=== PATIENT | female | born 1965 | race Caucasian/White ===

== ENCOUNTER → 2017-08-29 09:52 | Outpatient (CLI) | payer OTHER, SELFPAY ==
--- NOTE | 2017-08-29 | DI.CT.S_ITS ---
PROCEDURE: CT PEL WO CON INDICATIONS: POST OP EVALUATION TECHNIQUE: After the administration of oral contrast, 5 mm thick sections acquired from the iliac crests to the symphysis. 5 mm coronal and sagittal reformats were then performed. For radiation dose reduction, the following was used: automated exposure control, adjustment of mA and/or kV according to patient size. COMPARISON: None. FINDINGS: Image quality: Excellent. Peritoneum and bowel: Bowel loops demonstrate normal wall thickness and caliber. No free fluid or air. Genitourinary: Bladder wall thickness is normal. Nodes and vessels: No iliac, pelvic, or inguinal adenopathy by size criteria. Iliac vessels demonstrate normal size. Bones: Patient is status post right sacroiliac joint fusion. The joint space appears preserved. There is no ankylosis or bridging callus across the right sacroiliac joint. Left sacroiliac joint is unremarkable. No bony abnormalities. The bilateral hip joint spaces are preserved. Degenerative changes are present at the L5-S1 disc space including intervertebral disc space narrowing, vacuum disc phenomenon, and endplate sclerosis. Miscellaneous: No inguinal hernias. IMPRESSION: 1. Postoperative change. Right sacroiliac joint space is preserved without bridging callus. Dictated by: Farheen Le M.D. on 08/29/2017 at 11:21 Approved by: Farheen Le M.D. on 08/29/2017 at 11:44
== END ==
PROVIDERS: Family Provider Student in an Organized Health Care Education/Training Program; Visit Provider Physician Assistant Medical
DX: Z09 Encounter for follow-up examination after completed treatment for conditions other than malignant neoplasm (principal)
CPT/HCPCS: 72192

== ENCOUNTER 2019-08-13 09:29 | Emergency (ER) | payer OTHER, SELFPAY ==
[2019-08-13 09:58] VITALS: BP 153/86; PULSE 80; RESP 20; TEMP 37.6; O2SAT 97; BMI 29.7
--- NOTE | 2019-08-13 09:58 | DI.RAD.S_ITS ---
PROCEDURE: XR CHEST 1V INDICATIONS: suspected sepsis TECHNIQUE: One view of the chest was acquired. COMPARISON: None. FINDINGS: Surgical changes and devices: None. Lungs and pleura: Lungs are clear. No pleural effusions or pneumothorax. Mediastinum: Mediastinal contours appear normal. Heart size is normal. Bones and chest wall: No suspicious bony lesions. Overlying soft tissues appear unremarkable. IMPRESSION: No acute cardiopulmonary disease process. Dictated by: Malinda Neves MD, PhD on 08/13/2019 at 10:50 Approved by: Malinda Neves MD, PhD on 08/13/2019 at 10:50
[2019-08-13] MEDS: SODIUM CHLORIDE 0.9% 1,000 ML 1000 ML IV ×2 (10:14→11:49)
[2019-08-13] MEDS: ONDANSETRON 4 MG/2 ML INJ IV ×2 (10:14→12:52)
[2019-08-13 10:18] LABS: Add Manual Diff / Slide Review NO; Basophils Absolute Auto 0 /uL (0-100); Basophils Percent Auto 0.1 % (0-2); Eosinophils Absolute Auto 100 /uL (0-450); Eosinophils Percent Auto 0.4 % (2-4); Hematocrit 37.4 % (36-46); Lymphocytes Absolute Auto 500 /uL (1100-4500); Lymphocytes Percent Auto 2.9 % (25-40); Mean Corpuscular HGB Conc 34.9 % (30-36); Mean Corpuscular Hemoglobin 31.5 PG (26-34); Mean Corpuscular Volume 90.3 fL (80-100); Monocytes Absolute Auto 1100 /uL (0-900); Monocytes Percent Auto 6.3 % (3-14); Neutrophils Absolute Auto 16400 /uL (1500-7000); Neutrophils Percent Auto 90.3 % (50-75); Platelet Count 236 X10^3/uL (150-400); Red Blood Cell Count 4.14 X10^6/uL (4.0-5.2); Red Cell Distribution Width 12.8 % (11.6-14.8); White Blood Cell Count 18.1 X10^3/uL (4.5-11.0)
[2019-08-13 10:25] LABS: INR 1.2 (0.9-1.3); Prothrombin Time 13.9 SECONDS (10.1-12.7)
[2019-08-13 10:28] LABS: PTT Partial Thromboplastin Tim 28 SECONDS (26.4-36.2)
[2019-08-13 10:30] LABS: Alanine Aminotransferase 43 IU/L (<35); Albumin 4.2 g/dL (3.5-5.0); Albumin Globulin Ratio 1.3 (1.0-2.8); Alkaline Phosphatase 71 U/L (38-126); Aspartate Aminotransferase 44 IU/L (14-36); BUN Creatinine Ratio 21.9 (6-22); Bilirubin Total 0.5 mg/dL (0.2-1.3); Blood Urea Nitrogen 14 mg/dL (7-17); Calcium 8.9 mg/dL (8.4-10.2); Carbon Dioxide 22 mmol/L (22-32); Chloride 101 mmol/L (98-107); Estimated Glomerular Filt Rate > 60.0 mL/min (>60); Globulin 3.2 g/dL (1.7-4.1); Glucose 117 mg/dL (70-100); HEMOLYSIS 32 (0-50); Lipase 17 U/L (23-300); Potassium 3.5 mmol/L (3.4-5.1); Sodium 133 mmol/L (137-145); Total Protein 7.4 g/dL (6.3-8.2)
[2019-08-13 10:31] LABS: Lactate (Lactic Acid) 0.8 mmol/L (0.7-2.1)
[2019-08-13 11:00] VITALS: BP 132/59; PULSE 76; RESP 14; O2SAT 99
--- NOTE | 2019-08-13 11:02 | ED_ITS ---
HPI - General Adult General Chief complaint: Fever Stated complaint: 3 days fever/chills Time Seen by Provider: 08/13/19 10:03 Source: patient and family Mode of arrival: Family Vehicle Limitations: no limitations History of Present Illness HPI narrative: Otherwise healthy 53-year-old female here for evaluation of rosa isela diaz in symptoms to include body aches, fevers, shortness of breath and nausea and generally not feeling very well. She states the symptoms started approximately 48 hours ago. They are fairly gradual onset. Has taken Tylenol at home which has improved her fever somewhat however she states that when the Tylenol wears off her fevers return. She denies any cough. No recent travel. No known sick contacts. Denies any abdominal pain. No urinary symptoms. No headache. No neck pain. No rashes. No vaginal bleeding. No diarrhea. She was recently treated with antibiotics for urinary tract infection but she feels like those symptoms have resolved. Related Data Home Medications Medication Instructions Recorded Confirmed LEVOTHYROXINE SODIUM 100 mcg PO QDAY #0 tab 12/15/12 carisoprodol 350 mg PO QID #0 tab 12/15/12 hydrocodone-acetaminophen [Rifton] 1 tab PO PRN PRN #0 12/15/12 [ESTROGEN CREAM] #0 11/21/15 Previous Rx's Medication Instructions Recorded amoxicillin-pot clavulanate 875 mg PO BID #13 tab 11/22/15 [Augmentin] tramadol 50 mg PO Q6HP PRN #20 tab 11/22/15 ondansetron 4 mg PO Q6H PRN #10 tab 08/13/19 Allergies Allergy/AdvReac Type Severity Reaction Status Date / Time erythromycin base AdvReac Unknown Verified 08/13/19 10:13 [ERYTHROMYCIN BASE] Review of Systems Constitutional Constitutional: Reports body ache(s), Reports fever(s) and Reports malaise Eyes Eyes: Denies change in vision ENT Ears, Nose, Mouth, and Throat: Denies sinus pressure, Denies sore throat and Den ies throat swelling Cardiovascular Cardiovascular: Denies chest pain and Denies dyspnea Respiratory Respiratory: Denies dyspnea Gastrointestinal Gastrointestinal: Denies abdominal pain, Denies diarrhea and Reports nausea Genitourinary Genitourinary: Denies dysuria Genitourinary: Denies dysuria Musculoskeletal Musculoskeletal: Denies abnormal gait, Denies back pain and Reports myalgias Integumentary/Breasts Skin/Breast: Denies lesions and Denies rash Neurologic Neurologic: Denies abnormal gait and Denies behavioral changes Psychiatric Psychiatric: Denies behavioral changes Hematologic/Lymphatic Hematologic/Lymphatic: Denies easy bleeding and Denies easy bruising Allergic/Immunologic Allergic/Immunologic: Denies urticaria and Denies throat swelling Patient History Medical History Bitten by raccoon, initial encounter (Inactive) Hematoma of arm (Inactive) History of stroke (Inactive) Osteoarthritis of lumbar spine (Inactive) Radial head fracture, closed (Inactive) Social History Smoking Status: Never smoker Smoking Status: Never smoker alcohol intake frequency: 0-2 drinks per day Substance Use Type: does not use Exam Initial Vital Signs Initial Vital Signs: Vital Signs Temperature 99.7 F H 08/13/19 09:58 Pulse Rate 80 08/13/19 09:58 Respiratory Rate 20 08/13/19 09:58 Blood Pressure 153/86 H 08/13/19 09:58 Pulse Oximetry 97 08/13/19 09:58 Const General: cooperative, well developed and well groomed Limitations: mental status not altered HENMT Head: normal to inspection and normocephalic Ears: hearing grossly normal bilaterally Nose: external nose normal Neck Neck: no meningeal signs Resp Effort & Inspection: normal respiratory effort Auscultation: clear to auscultation bilaterally Cardio Rate: regular rate Rhythm: regular rhythm GI Inspection: non-distended Palpation: soft and No firm Back/Spine/Pelvis Back: No CVA tenderness Skin Lesions: no lesions Rashes: no rashes Neuro General: patient alert, patient awake and patient oriented x3 Cognition: normal cognition Speech: speech normal Extrem General: normal to inspection and capillary refill normal Psych Appearance: grossly normal and well kempt Scores GCS [place] coma scale eye opening: Spontaneous Adolfo coma scale verbal response: Orientated [place] coma scale motor response: Obey commands Adolfo coma scale total score: 15 Course Orders Ordered: ED Orders 08/13/19 10:27 Blood Culture Stat 08/13/19 11:11 Urine Microscopic Stat 08/13/19 11:53 Influenza A & B (PCR) Stat Discontinued Medications Sodium Chloride (Normal Saline 0.9%) 1,000 mls @ 1,000 mls/hr IV BOLUS ONE Stop: 08/13/19 10:54 Last Infusion: 08/13/19 11:30 Dose: 0 mls/hr Documented by: Admin: 08/13/19 10:14 Dose: 1,000 mls/hr Documented by: LEONILA Sodium Chloride (Normal Saline 0.9%) 1,000 mls @ 1,000 mls/hr IV BOLUS ONE Stop: 08/13/19 12:19 Last Infusion: 08/13/19 12:58 Dose: 0 mls/hr Documented by: Admin: 08/13/19 11:49 Dose: 1,000 mls/hr Documented by: GARRISON Ketorolac Tromethamine (Toradol) 30 mg IV NOW ONE Stop: 08/13/19 12:49 Last Admin: 08/13/19 12:52 Dose: 30 mg Documented by: GARRISON Ondansetron HCl (Zofran) 4 mg IV NOW ONE Stop: 08/13/19 10:05 Last Admin: 08/13/19 10:14 Dose: 4 mg Documented by: LEONILA Ondansetron HCl (Zofran) 4 mg IV NOW ONE Stop: 08/13/19 12:49 Last Admin: 08/13/19 12:52 Dose: 4 mg Documented by: GARRISON Vital Signs Vital signs: Vital Signs - 8 hr 08/13/19 11:30 08/13/19 12:46 Temperature 99.4 F Pulse Rate 80 82 Respiratory Rate 20 15 Blood Pressure [Right Arm] 142/65 H 140/66 Pulse Oximetry 100 99 Medical Decision Making Medical Records Medical records reviewed: Yes I reviewed the patient's medical records. Lab Data Lab results reviewed: Yes I reviewed the patient's lab results. Result diagrams: 08/13/19 10:00 08/13/19 10:00 Labs: Lab Results 08/13/19 08/13/19 08/13/19 Range/Units 10:00 10:00 10:00 WBC 18.1 H (4.5-11.0) X10^3/uL RBC 4.14 (4.0-5.2) X10^6/uL Hgb 13.0 (12.0-16.0) g/dL Hct 37.4 (36-46) % MCV 90.3 (80-100) fL MCH 31.5 (26-34) PG MCHC 34.9 (30-36) % RDW 12.8 (11.6-14.8) % Plt Count 236 (150-400) X10^3/uL Neut % (Auto) 90.3 H (50-75) % Lymph % (Auto) 2.9 L (25-40) % Ada % (Auto) 6.3 (3-14) % Eos % (Auto) 0.4 L (2-4) % Baso % (Auto) 0.1 (0-2) % Neut # (Auto) 14014 H (7888-3783) /uL Lymph # (Auto) 500 L (8050-4060) /uL Ada # (Auto) 1100 H (0-900) /uL Eos # (Auto) 100 (0-450) /uL Baso # (Auto) 0 (0-100) /uL PT 13.9 H (10.1-12.7) SECONDS INR 1.2 (0.9-1.3) APTT 28 (26.4-36.2) SECONDS Sodium (137-145) mmol/L Potassium (3.4-5.1) mmol/L Chloride (98-107) mmol/L Carbon Dioxide (22-32) mmol/L BUN (7-17) mg/dL Creatinine (0.52-1.04) mg/dL Estimated GFR (>60) mL/min BUN/Creatinine Ratio (6-22) Glucose (70-100) mg/dL Lactate (0.7-2.1) mmol/L Calcium (8.4-10.2) mg/dL Total Bilirubin (0.2-1.3) mg/dL AST (14-36) IU/L ALT (<35) IU/L Alkaline Phosphatase (38-126) U/L Total Protein (6.3-8.2) g/dL Albumin (3.5-5.0) g/dL Globulin (1.7-4.1) g/dL Albumin/Globulin Ratio (1.0-2.8) Lipase (23-300) U/L Procalcitonin 0.30 (<0.5) ng/mL Urine RBC (0-5/HPF) Urine WBC (0-5/HPF) Ur Squamous Epith Cells (0-5/HPF) Urine Bacteria (None) Ur Culture Indicated? Influenza A (RT-PCR) (NEGATIVE) Influenza B (RT-PCR) (NEGATIVE) 08/13/19 08/13/19 08/13/19 Range/Units 10:00 10:00 11:11 WBC (4.5-11.0) X10^3/uL RBC (4.0-5.2) X10^6/uL Hgb (12.0-16.0) g/dL Hct (36-46) % MCV (80-100) fL MCH (26-34) PG MCHC (30-36) % RDW (11.6-14.8) % Plt Count (150-400) X10^3/uL Neut % (Auto) (50-75) % Lymph % (Auto) (25-40) % Ada % (Auto) (3-14) % Eos % (Auto) (2-4) % Baso % (Auto) (0-2) % Neut # (Auto) (0957-5327) /uL Lymph # (Auto) (8846-3159) /uL Ada # (Auto) (0-900) /uL Eos # (Auto) (0-450) /uL Baso # (Auto) (0-100) /uL PT (10.1-12.7) SECONDS INR (0.9-1.3) APTT (26.4-36.2) SECONDS Sodium 133 L (137-145) mmol/L Potassium 3.5 (3.4-5.1) mmol/L Chloride 101 (98-107) mmol/L Carbon Dioxide 22 (22-32) mmol/L BUN 14 (7-17) mg/dL Creatinine 0.64 (0.52-1.04) mg/dL Estimated GFR > 60.0 (>60) mL/min BUN/Creatinine Ratio 21.9 (6-22) Glucose 117 H (70-100) mg/dL Lactate 0.8 (0.7-2.1) mmol/L Calcium 8.9 (8.4-10.2) mg/dL Total Bilirubin 0.5 (0.2-1.3) mg/dL AST 44 H (14-36) IU/L ALT 43 H (<35) IU/L Alkaline Phosphatase 71 (38-126) U/L Total Protein 7.4 (6.3-8.2) g/dL Albumin 4.2 (3.5-5.0) g/dL Globulin 3.2 (1.7-4.1) g/dL Albumin/Globulin Ratio 1.3 (1.0-2.8) Lipase 17 L (23-300) U/L Procalcitonin (<0.5) ng/mL Urine RBC 1-5/hpf (0-5/HPF) Urine WBC 0-1/hpf (0-5/HPF) Ur Squamous Epith Cells 10-30 /hpf H (0-5/HPF) Urine Bacteria None seen (None) Ur Culture Indicated? Cult not indicated Influenza A (RT-PCR) (NEGATIVE) Influenza B (RT-PCR) (NEGATIVE) 08/13/19 Range/Units 11:53 WBC (4.5-11.0) X10^3/uL RBC (4.0-5.2) X10^6/uL Hgb (12.0-16.0) g/dL Hct (36-46) % MCV (80-100) fL MCH (26-34) PG MCHC (30-36) % RDW (11.6-14.8) % Plt Count (150-400) X10^3/uL Neut % (Auto) (50-75) % Lymph % (Auto) (25-40) % Ada % (Auto) (3-14) % Eos % (Auto) (2-4) % Baso % (Auto) (0-2) % Neut # (Auto) (5792-2419) /uL Lymph # (Auto) (8872-4630) /uL Ada # (Auto) (0-900) /uL Eos # (Auto) (0-450) /uL Baso # (Auto) (0-100) /uL PT (10.1-12.7) SECONDS INR (0.9-1.3) APTT (26.4-36.2) SECONDS Sodium (137-145) mmol/L Potassium (3.4-5.1) mmol/L Chloride (98-107) mmol/L Carbon Dioxide (22-32) mmol/L BUN (7-17) mg/dL Creatinine (0.52-1.04) mg/dL Estimated GFR (>60) mL/min BUN/Creatinine Ratio (6-22) Glucose (70-100) mg/dL Lactate (0.7-2.1) mmol/L Calcium (8.4-10.2) mg/dL Total Bilirubin (0.2-1.3) mg/dL AST (14-36) IU/L ALT (<35) IU/L Alkaline Phosphatase (38-126) U/L Total Protein (6.3-8.2) g/dL Albumin (3.5-5.0) g/dL Globulin (1.7-4.1) g/dL Albumin/Globulin Ratio (1.0-2.8) Lipase (23-300) U/L Procalcitonin (<0.5) ng/mL Urine RBC (0-5/HPF) Urine WBC (0-5/HPF) Ur Squamous Epith Cells (0-5/HPF) Urine Bacteria (None) Ur Culture Indicated? Influenza A (RT-PCR) Flu a negative (NEGATIVE) Influenza B (RT-PCR) Flu b negative (NEGATIVE) Point of Care Testing Test Results Negative Urine Dip Bedside Urine Glucose Negative Bedside Urine Bilirubin ++ 2 Bedside Urine Ketone +++ 80 Urine Specific Mallory 1.025 Bedside Urine Occult Blood +/- Bedside Urine pH 6.0 Bedside Urine Protein + 30 Bedside Urine Urobilinogen +/- 1mg Bedside Urine Nitrite - Negative Bedside Urine Leukocytes - Negative Esterase Point of care testing: Point of Care Testing Test Results Negative Urine Dip Bedside Urine Glucose Negative Bedside Urine Bilirubin ++ 2 Bedside Urine Ketone +++ 80 Urine Specific Mallory 1.025 Bedside Urine Occult Blood +/- Bedside Urine pH 6.0 Bedside Urine Protein + 30 Bedside Urine Urobilinogen +/- 1mg Bedside Urine Nitrite - Negative Bedside Urine Leukocytes - Negative Esterase Imaging Data Chest x-ray: Radiologist's Impression: [address] [address] XRay Report Signed Patient: May Martinez [facility]#: [id number] : 1965Acct:[id number] Age/Sex: 53 / FDate of Service: 08/13/19 Loc: ED Accession Number: [id number] Procedure: XR chest 1V Ordering Provider: Lanker,Chucky D.O. PROCEDURE: XR CHEST 1V INDICATIONS: suspected sepsis TECHNIQUE: One view of the chest was acquired. COMPARISON: None. FINDINGS: Surgical changes and devices: None. Lungs and pleura: Lungs are clear. No pleural effusions or pneumothorax. Mediastinum: Mediastinal contours appear normal. Heart size is normal. Bones and chest wall: No suspicious bony lesions. Overlying soft tissues appear unremarkable. IMPRESSION: No acute cardiopulmonary disease process. Dictated by: Malinda Neves MD, PhD on 08/13/2019 at 10:50 Approved by: Malinda Neves MD, PhD on 08/13/2019 at 10:50 ECG Data Attestation: I personally reviewed and interpreted this ECG as follows: Prior ECG tracings: not available for review Interpretation: Sinus rhythm Ventricular rate is 76 Normal axis Normal QRS Normal QTC No ST T wave changes MDM Narrative Medical decision making narrative: Unknown source of the patient's fever. Does not appear to be a pneumonia. Does not appear to be urinary tract infection. She has no skin changes concerning for skin infection. She has no abdominal tenderness concerning for an intra-abdominal surgical issue. Her physical exam is not consistent with meningitis. Her flu is negative. We did test her for COVID-19. We did inform her this would take a couple days to result. I have no indication for antibiotics. We did discuss the use of Tylenol and ibuprofen. Will send home with nausea medications. Informed her that if any symptoms worsen to include worsening abdominal pain she should return to the emergency department. I do not feel that we should do a CT scan of her abdomen today however if she returns with worsening abdominal pain this potentially could be warranted. She expressed understanding and agreement with these discharge instructions. Discharge Plan Departure Patient Disposition: Home Clinical Impression: Nausea Fever Qualifiers: Fever type: unspecified Qualified Code(s): R50.9 - Fever, unspecified Discharge Date/Time: 08/13/19 13:46 Instructions: DI for Fever (Symptom) -- Adult Activity Restrictions/Additional Instructions: Use the nausea medication as needed. Recommend that you drink small amounts of fluid over longer periods of time. Tylenol and/or ibuprofen for any fevers or body aches. You were tested for COVID-19. This takes anywhere from 2-5 days to result. Contact your primary provider for follow-up. Prescriptions: New ondansetron 4 mg tablet,disintegrating 4 mg PO Q6H PRN (Reason: nausea and vomiting) Qty: 10 RF: 0 No Action carisoprodol 350 MG tablet 350 mg PO QID Qty: 0 RF: 0 hydrocodone-acetaminophen [Rifton] 7.5 MG/325 MG tablet 1 tab PO PRN PRNQty: 0 RF: 0 LEVOTHYROXINE SODIUM 100 mcg PO QDAY Qty: 0 RF: 0 [ESTROGEN CREAM] Qty: 0 RF: 0 tramadol 50 MG tablet 50 mg PO Q6HP PRNQty: 20 RF: 0 amoxicillin-pot clavulanate [Augmentin] 875 MG/125 MG tablet 875 mg PO BID Qty: 13 RF: 0 Stand Alone Forms: Work Release Note
[2019-08-13 11:12] LABS: Bacteria Urine None Seen
[2019-08-13 11:18] LABS: RBC Urine 1-5/HPF (0-5/HPF); Squamous Epithelial Cell Urine 10-30 /HPF (0-5/HPF); WBC Urine 0-1/HPF (0-5/HPF)
[2019-08-13 11:19] LABS: Culture Indicated Urine Cult Not Indicated
[2019-08-13 11:30] VITALS: BP 142/65; PULSE 80; RESP 20; O2SAT 100
[2019-08-13 12:46] VITALS: BP 140/66; PULSE 82; RESP 15; TEMP 37.4; O2SAT 99
[2019-08-13] MEDS: KETOROLAC 60 MG/2 ML VIAL 30 MG IV (12:52)
[2019-08-13 13:06] LABS: Influenza A - CEPHEID Flu A NEGATIVE (NEGATIVE); Influenza B - CEPHEID Flu B NEGATIVE (NEGATIVE)
[2019-08-13 23:34] LABS: COVID19 Sendout Not Detected (Not Detect)
== END 2019-08-13 13:46 | disposition home or self-care (01) ==
PROVIDERS: Emergency Provider Emergency Medicine; Family Provider Student in an Organized Health Care Education/Training Program
DX: Z03.818 Encounter for observation for suspected exposure to other biological agents ruled out (principal); R11.0 Nausea; R50.9 Fever, unspecified; R06.02 Shortness of breath
CPT/HCPCS: 36415; 71045; 80053; 81003; 81015; 81025; 83605; 83690; 84145; 85025; 85610; 85730; 87040; 87502; 87635; 93005; 96361; 96374; 96375; 96376; 99284; J1885; J2405

== ENCOUNTER 2019-08-15 13:32 | Emergency (ER) | payer OTHER, SELFPAY ==
[2019-08-15 13:41] VITALS: BP 152/74; PULSE 97; RESP 18; TEMP 36.7; O2SAT 98; BMI 26.5
[2019-08-15 14:27] LABS: Add Manual Diff / Slide Review NO; Basophils Absolute Auto 100 /uL (0-100); Basophils Percent Auto 0.4 % (0-2); Eosinophils Absolute Auto 0 /uL (0-450); Hematocrit 41.7 % (36-46); Hemoglobin 14.5 g/dL (12.0-16.0); Lymphocytes Absolute Auto 1700 /uL (1100-4500); Lymphocytes Percent Auto 11.6 % (25-40); Mean Corpuscular HGB Conc 34.7 % (30-36); Mean Corpuscular Hemoglobin 31.3 PG (26-34); Mean Corpuscular Volume 90.2 fL (80-100); Monocytes Absolute Auto 1900 /uL (0-900); Monocytes Percent Auto 12.6 % (3-14); Neutrophils Absolute Auto 11100 /uL (1500-7000); Neutrophils Percent Auto 75.4 % (50-75); Platelet Count 350 X10^3/uL (150-400); Red Blood Cell Count 4.62 X10^6/uL (4.0-5.2); Red Cell Distribution Width 12.9 % (11.6-14.8); White Blood Cell Count 14.7 X10^3/uL (4.5-11.0)
--- NOTE | 2019-08-15 14:29 | DI.RAD.S_ITS ---
PROCEDURE: XR ACUTE ABDOMEN SERIES INDICATIONS: abd pain, vomiting TECHNIQUE: One view chest and two views of the abdomen were acquired. COMPARISON: [facility], CT, CT ABDOMEN PELVIS W CON, 08/15/2019, 15:02. FINDINGS: Surgical changes and devices: None. Chest: Lungs are clear. Heart size is normal. No pleural effusions. No pneumoperitoneum. Abdomen: No air-filled distended small bowel loops are identified demonstrating air-fluid levels. No suspicious calcifications. Visualized solid organ contours appear normal. Bones: No suspicious bony lesions. Postoperative changes of the right sacroiliac joint are present. IMPRESSION: 1. No evidence of a bowel obstruction. 2. No acute cardiopulmonary process is evident. Dictated by: Alphonse Montano M.D. on 08/15/2019 at 14:57 Approved by: Alphonse Montano M.D. on 08/15/2019 at 14:58
[2019-08-15 14:34] LABS: INR 1.1 (0.9-1.3); Prothrombin Time 12.5 SECONDS (10.1-12.7)
[2019-08-15 14:37] LABS: PTT Partial Thromboplastin Tim 30 SECONDS (26.4-36.2)
[2019-08-15 14:39] LABS: Alanine Aminotransferase 31 IU/L (<35); Albumin 4.6 g/dL (3.5-5.0); Albumin Globulin Ratio 1.2 (1.0-2.8); Alkaline Phosphatase 87 U/L (38-126); Aspartate Aminotransferase 32 IU/L (14-36); BUN Creatinine Ratio 21.5 (6-22); Bilirubin Total 0.4 mg/dL (0.2-1.3); Blood Urea Nitrogen 14 mg/dL (7-17); Calcium 9.9 mg/dL (8.4-10.2); Carbon Dioxide 29 mmol/L (22-32); Chloride 97 mmol/L (98-107); Estimated Glomerular Filt Rate > 60.0 mL/min (>60); Globulin 3.8 g/dL (1.7-4.1); Glucose 109 mg/dL (70-100); HEMOLYSIS < 15 (0-50); Lipase 56 U/L (23-300); Potassium 3.3 mmol/L (3.4-5.1); Sodium 136 mmol/L (137-145); Total Protein 8.4 g/dL (6.3-8.2)
[2019-08-15] MEDS: SODIUM CHLORIDE 0.9% 1,000 ML 1000 ML IV ×2 (14:47→15:56)
[2019-08-15] MEDS: ONDANSETRON 4 MG/2 ML INJ IV (14:47)
--- NOTE | 2019-08-15 14:54 | DI.CT.S_ITS ---
PROCEDURE: CT ABDOMEN PELVIS W CON INDICATIONS: abd pain, vomiting with fever TECHNIQUE: After the administration of intravenous contrast, 5 mm thick sections acquired from the diaphragm to the symphysis. 5 mm coronal and sagittal reformats were acquired. For radiation dose reduction, the following was used: automated exposure control, adjustment of mA and/or kV according to patient size. COMPARISON: None. FINDINGS: Image quality: Excellent. ABDOMEN: Lung bases: Lung bases are clear. Heart size is normal. Solid organs: Liver is normal in size and enhancement. Gallbladder is unremarkable. Biliary system is non dilated. Pancreas enhances normally. Spleen is normal in size and enhancement. No adrenal nodules. Kidneys demonstrate normal size and enhancement, without hydronephrosis. Peritoneum and bowel: Diffuse thickening of the bowel wall of the ascending colon and proximal transverse colon with thumbprinting. Consider infectious versus inflammatory versus ischemic etiologies. The bowel is otherwise unremarkable. No free air, free fluid, or abscess cavity. Nodes and vessels: No retroperitoneal or mesenteric adenopathy by size criteria. Aorta and inferior vena cava are normal in size. Miscellaneous: No ventral hernias. PELVIS: Genitourinary: Bladder wall thickness is normal. Miscellaneous: No inguinal hernias or adenopathy. Remote hysterectomy. Bones: No suspicious bony lesions. No vertebral body compression fractures. Right SI joint fusion hardware. IMPRESSION: 1. Diffuse thickening of the bowel wall of the ascending colon and proximal transverse colon with thumbprinting. Consider infectious versus inflammatory versus ischemic etiologies. Dictated by: Melquiades Bhakta M.D. on 08/15/2019 at 15:53 Approved by: Melquiades Bhakta M.D. on 08/15/2019 at 15:59
[2019-08-15] MEDS: METOCLOPRAMIDE 10 MG/2 ML INJ IV (15:05)
[2019-08-15] MEDS: MORPHINE 2 MG/ML INJ IV ×2 (15:05→17:15)
[2019-08-15 15:06] VITALS: BP 192/93; PULSE 80; RESP 21; O2SAT 98
[2019-08-15 15:50] LABS: Bacteria Urine None Seen; WBC Urine None Seen (0-5/HPF)
--- NOTE | 2019-08-15 15:51 | ED.NAVMDI ---
HPI - Nausea/Vomiting/Diarrhea <Dimple Aguirre, [employer]-BC - Last Filed: 08/15/19 21:11> General Chief complaint: Nausea/Vomiting/Diarrhea Stated complaint: fever,vomiting all week Time Seen by Provider: 08/15/19 14:12 Source: patient and family Mode of arrival: Family Vehicle Limitations: no limitations History of Present Illness HPI Narrative: The patient is a 53-year-old female with history of hysterectomy nonsmoker presents with her for chief complaint of fever with vomiting all week. She states she started feeling ill on Sunday up to 104.5, stomach cramping. She came to this facility to be evaluated on Sunday, tested negative for flu and coronavirus. She had a normal chest x-ray at that point time. She comes back today because she has difficulty keeping down anything including fluids. She states she is still having extreme stomach cramping and pain. She denies any dysuria urgency or frequency but notes that she was treated for an antibiotic with Bactrim a few weeks ago. She states she has already had her appendix out. She had an episode of diarrhea last night, and keeps feeling like she has to have diarrhea, but nothing comes out. She denies any focal tenderness to her stomach, states that the whole thing is cramping. She denies any cough or congestion at this point time. Denies any shortness of breath. Related Data Home Medications Medication Instructions Recorded Confirmed LEVOTHYROXINE SODIUM 100 mcg PO QDAY #0 tab 12/15/12 carisoprodol 350 mg PO QID #0 tab 12/15/12 hydrocodone-acetaminophen [Melcher [place]] 1 tab PO PRN PRN #0 12/15/12 [ESTROGEN CREAM] #0 11/21/15 Previous Rx's Medication Instructions Recorded amoxicillin-pot clavulanate 875 mg PO BID #13 tab 11/22/15 [Augmentin] tramadol 50 mg PO Q6HP PRN #20 tab 11/22/15 ondansetron 4 mg PO Q6H PRN #10 tab 08/13/19 ciprofloxacin HCl 500 mg PO BID #14 tab 08/15/19 hydrocodone-acetaminophen [Melcher [place]] 1 tab PO Q4-6H PRN #10 tab 08/15/19 metoclopramide HCl 10 mg PO Q6H PRN #20 tab 08/15/19 metronidazole 500 mg PO TID 7 Days #21 tab 08/15/19 prednisone 40 mg PO DAILY 3 Days #6 tab 08/15/19 Allergies Allergy/AdvReac Type Severity Reaction Status Date / Time erythromycin base AdvReac Unknown Verified 08/15/19 13:46 [ERYTHROMYCIN BASE] Review of Systems <EJ Booker - Last Filed: 08/15/19 21:11> Review of Systems Narrative: GENERAL: See HPI HEENT: Denies sinus pain, ear pain, sore throat, difficulty swallowing, dizziness. RESPIRATORY: Denies dyspnea, cough, wheezing, hemoptysis, sputum. CARDIOVASCULAR: Denies chest pain, palpitations, orthopnea, edema, GASTROINTESTINAL: See HPI : Denies dysuria, frequency, incontinence, hematuria, urinary retention. MUSCULOSKELETAL: denies weakness, joint pain, or bony pain SKIN: Denies rash, skin lesions, or other NEUROLOGIC: Denies weakness, headache, numbness, change in speech, confusion, seizures, incoordination. PSYCHIATRIC: No concerning psychosocial issues. 12 point review of systems is negative except for those stated above Patient History <EJ Booker - Last Filed: 08/15/19 21:11> Medical History Bitten by angi, initial encounter (Inactive) Hematoma of arm (Inactive) History of stroke (Inactive) Osteoarthritis of lumbar spine (Inactive) Radial head fracture, closed (Inactive) Social History Smoking Status: Never smoker Smoking Status: Never smoker alcohol intake frequency: 0-2 drinks per day Substance Use Type: does not use Exam <EJ Booker - Last Filed: 08/15/19 21:11> Narrative Exam Narrative: GENERAL: This is a well-nourished, well-developed patient, appears fatigued and uncomfortable HEAD: Atraumatic. Normocephalic. No temporal or scalp tenderness. EYES: Pupils equal round and reactive. Extraocular motions intact. No scleral icterus. No injection or drainage. ENT: Nose without bleeding, purulent drainage or septal hematoma. Throat without erythema, tonsillar hypertrophy or exudate. Uvula midline. Airway patent. Dry mucous membranes noted NECK: Trachea midline. No JVD or lymphadenopathy. Supple, nontender, no meningeal signs. CARDIOVASCULAR: Regular rate and rhythm RESPIRATORY: Clear to auscultation. Breath sounds equal bilaterally. No wheezes, rales, or rhonchi. GASTROINTESTINAL: Abdomen soft, diffusely tender, active bowel sounds all 4 quadrants. No hepato-splenomegaly, or palpable masses. No guarding. EXTREMITIES: No clubbing, cyanosis, or edema. No joint tenderness, effusion, or edema noted. BACK: Nontender without deformity or crepitance. No flank tenderness. NEURO: AOx3. SKIN: No rash or erythema on visible skin Initial Vital Signs Initial Vital Signs: Vital Signs Temperature 98.0 F 08/15/19 13:41 Pulse Rate 97 H 08/15/19 13:41 Respiratory Rate 18 08/15/19 13:41 Blood Pressure 152/74 H 08/15/19 13:41 Pulse Oximetry 98 08/15/19 13:41 <Stevan Bajwa MD - Last Filed: 08/16/19 07:18> Initial Vital Signs Initial Vital Signs: Vital Signs Temperature 98.0 F 08/15/19 13:41 Pulse Rate 97 H 08/15/19 13:41 Respiratory Rate 18 08/15/19 13:41 Blood Pressure 152/74 H 08/15/19 13:41 Pulse Oximetry 98 08/15/19 13:41 Scores <EJ Booker - Last Filed: 08/15/19 21:11> GCS [place] coma scale eye opening: Spontaneous [place] coma scale verbal response: Orientated [place] coma scale motor response: Obey commands [place] coma scale total score: 15 Course <EJ Booker - Last Filed: 08/15/19 21:11> Orders Ordered: Discontinued Medications Hydrocodone Bitart/Acetaminophen (Vicodin 5/325 Prepack) 1 bottle MISC SEEINSTR ONE Stop: 08/15/19 18:38 Last Admin: 08/15/19 19:21 Dose: Not Given Documented by: JAYRO Ciprofloxacin (Cipro) 500 mg PO NOW ONE Stop: 08/15/19 17:32 Last Admin: 08/15/19 18:04 Dose: 500 mg Documented by: TONY Sodium Chloride (Normal Saline 0.9%) 1,000 mls @ 1,000 mls/hr IV BOLUS ONE Stop: 08/15/19 15:27 Last Infusion: 08/15/19 15:55 Dose: 0 mls/hr Documented by: Admin: 08/15/19 14:47 Dose: 1,000 mls/hr Documented by: MIRANDA Sodium Chloride (Normal Saline 0.9%) 1,000 mls @ 1,000 mls/hr IV BOLUS ONE Stop: 08/15/19 16:47 Last Infusion: 08/15/19 17:13 Dose: 0 mls/hr Documented by: Admin: 08/15/19 15:56 Dose: 1,000 mls/hr Documented by: CARLYN Methylprednisolone (Solu-Medrol 125 Mg Vial) 125 mg IV NOW ONE Stop: 08/15/19 16:43 Last Admin: 08/15/19 17:06 Dose: 125 mg Documented by: TONY Metoclopramide HCl (Reglan) 10 mg IV NOW ONE Stop: 08/15/19 15:01 Last Admin: 08/15/19 15:05 Dose: 10 mg Documented by: CARLYN Metronidazole (Metronidazole) 500 mg PO NOW ONE Stop: 08/15/19 17:32 Last Admin: 08/15/19 18:04 Dose: 500 mg Documented by: TONY Morphine Sulfate (Morphine) 2 mg IV NOW ONE Stop: 08/15/19 15:01 Last Admin: 08/15/19 15:05 Dose: 2 mg Documented by: CARLYN Morphine Sulfate (Morphine) 2 mg IV NOW ONE Stop: 08/15/19 17:13 Last Admin: 08/15/19 17:15 Dose: 2 mg Documented by: CARLYN Ondansetron HCl (Zofran) 4 mg IV NOW ONE Stop: 08/15/19 14:29 Last Admin: 08/15/19 14:47 Dose: 4 mg Documented by: MIRANDA Potassium Chloride (Klor-Con M20) 40 meq PO NOW ONE Stop: 08/15/19 18:45 Last Admin: 08/15/19 19:28 Dose: 40 meq Documented by: JAYRO Vital Signs Vital signs: Vital Signs - 8 hr 08/15/19 13:41 08/15/19 15:06 08/15/19 16:15 Temperature 98.0 F Pulse Rate 97 H 80 72 Respiratory Rate 18 21 17 Blood Pressure 152/74 H Blood Pressure [Right Arm] 192/93 H 174/82 H Pulse Oximetry 98 98 99 08/15/19 18:45 Temperature Pulse Rate 75 Respiratory Rate 18 Blood Pressure Blood Pressure [Right Arm] 188/88 H Pulse Oximetry 99 <Stevan Bajwa MD - Last Filed: 08/16/19 07:18> Orders Ordered: Discontinued Medications Hydrocodone Bitart/Acetaminophen (Vicodin 5/325 Prepack) 1 bottle MISC SEEINSTR ONE Stop: 08/15/19 18:38 Last Admin: 08/15/19 19:21 Dose: Not Given Documented by: JAYRO Ciprofloxacin (Cipro) 500 mg PO NOW ONE Stop: 08/15/19 17:32 Last Admin: 08/15/19 18:04 Dose: 500 mg Documented by: TONY Sodium Chloride (Normal Saline 0.9%) 1,000 mls @ 1,000 mls/hr IV BOLUS ONE Stop: 08/15/19 15:27 Last Infusion: 08/15/19 15:55 Dose: 0 mls/hr Documented by: Admin: 08/15/19 14:47 Dose: 1,000 mls/hr Documented by: MIRANDA Sodium Chloride (Normal Saline 0.9%) 1,000 mls @ 1,000 mls/hr IV BOLUS ONE Stop: 08/15/19 16:47 Last Infusion: 08/15/19 17:13 Dose: 0 mls/hr Documented by: Admin: 08/15/19 15:56 Dose: 1,000 mls/hr Documented by: CARLYN Methylprednisolone (Solu-Medrol 125 Mg Vial) 125 mg IV NOW ONE Stop: 08/15/19 16:43 Last Admin: 08/15/19 17:06 Dose: 125 mg Documented by: TONY Metoclopramide HCl (Reglan) 10 mg IV NOW ONE Stop: 08/15/19 15:01 Last Admin: 08/15/19 15:05 Dose: 10 mg Documented by: CARLYN Metronidazole (Metronidazole) 500 mg PO NOW ONE Stop: 08/15/19 17:32 Last Admin: 08/15/19 18:04 Dose: 500 mg Documented by: TONY Morphine Sulfate (Morphine) 2 mg IV NOW ONE Stop: 08/15/19 15:01 Last Admin: 08/15/19 15:05 Dose: 2 mg Documented by: CARLYN Morphine Sulfate (Morphine) 2 mg IV NOW ONE Stop: 08/15/19 17:13 Last Admin: 08/15/19 17:15 Dose: 2 mg Documented by: CARLYN Ondansetron HCl (Zofran) 4 mg IV NOW ONE Stop: 08/15/19 14:29 Last Admin: 08/15/19 14:47 Dose: 4 mg Documented by: MIRANDA Potassium Chloride (Klor-Con M20) 40 meq PO NOW ONE Stop: 08/15/19 18:45 Last Admin: 08/15/19 19:28 Dose: 40 meq Documented by: JAYRO Vital Signs Vital signs: Vital Signs - 8 hr 08/15/19 13:41 08/15/19 15:06 08/15/19 16:15 Temperature 98.0 F Pulse Rate 97 H 80 72 Respiratory Rate 18 21 17 Blood Pressure 152/74 H Blood Pressure [Right Arm] 192/93 H 174/82 H Pulse Oximetry 98 98 99 08/15/19 18:45 Temperature Pulse Rate 75 Respiratory Rate 18 Blood Pressure Blood Pressure [Right Arm] 188/88 H Pulse Oximetry 99 MDM - Nausea/Vomiting/Diarrhea <FREDA Booker- - Last Filed: 08/15/19 21:11> Lab Data Attestation: I reviewed the patient's lab results. Result diagrams: 08/15/19 14:15 08/15/19 14:15 Labs: Lab Results 08/15/19 08/15/19 08/15/19 Range/Units 14:15 14:15 14:15 WBC 14.7 H (4.5-11.0) X10^3/uL RBC 4.62 (4.0-5.2) X10^6/uL Hgb 14.5 (12.0-16.0) g/dL Hct 41.7 (36-46) % MCV 90.2 (80-100) fL MCH 31.3 (26-34) PG MCHC 34.7 (30-36) % RDW 12.9 (11.6-14.8) % Plt Count 350 (150-400) X10^3/uL Neut % (Auto) 75.4 H (50-75) % Lymph % (Auto) 11.6 L (25-40) % [place] % (Auto) 12.6 (3-14) % Eos % (Auto) 0.0 L (2-4) % Baso % (Auto) 0.4 (0-2) % Neut # (Auto) 47754 H (7431-5563) /uL Lymph # (Auto) 1700 (5362-8786) /uL [place] # (Auto) 1900 H (0-900) /uL Eos # (Auto) 0 (0-450) /uL Baso # (Auto) 100 (0-100) /uL PT 12.5 (10.1-12.7) SECONDS INR 1.1 (0.9-1.3) APTT 30 D (26.4-36.2) SECONDS Sodium 136 L (137-145) mmol/L Potassium 3.3 L (3.4-5.1) mmol/L Chloride 97 L (98-107) mmol/L Carbon Dioxide 29 (22-32) mmol/L BUN 14 (7-17) mg/dL Creatinine 0.65 (0.52-1.04) mg/dL Estimated GFR > 60.0 (>60) mL/min BUN/Creatinine Ratio 21.5 (6-22) Glucose 109 H (70-100) mg/dL Lactate (0.7-2.1) mmol/L Calcium 9.9 (8.4-10.2) mg/dL Total Bilirubin 0.4 (0.2-1.3) mg/dL AST 32 (14-36) IU/L ALT 31 (<35) IU/L Alkaline Phosphatase 87 (38-126) U/L Total Protein 8.4 H (6.3-8.2) g/dL Albumin 4.6 (3.5-5.0) g/dL Globulin 3.8 (1.7-4.1) g/dL Albumin/Globulin Ratio 1.2 (1.0-2.8) Lipase 56 D (23-300) U/L Urine RBC (0-5/HPF) Urine WBC (0-5/HPF) Urine Bacteria (None) Ur Culture Indicated? Stl C. cayetanensis PCR (Not Detect) Stool Rotavirus (PCR) (Not Detect) Stool Adenovirus (PCR) (Not Detect) Stool Astrovirus (PCR) (Not Detect) Stool Cryptosporidium PCR (Not Detect) Stl E.coli Shiga Tox PCR (Not Detect) St Sh/Enteroin Ecoli PCR (Not Detect) Stool E coli O157 PCR Stl Enterotoxigenic E PCR (Not Detect) Stool EPEC (PCR) (Not Detect) Stl E. histolytica PCR (Not Detect) Stool Giardia Lamblia PCR (Not Detect) Stool Sapovirus (PCR) (Not Detect) Stl P. shigelloides PCR (Not Detect) St Y.enterocolitica PCR (Not Detect) Stool Vibrio (PCR) (Not Detect) Stl Vibrio cholerae PCR (Not Detect) Stl Enteroaggr Ecoli PCR (Not Detect) Stl Norovirus GI/GII PCR (Not Detect) Campylobacter (PCR) (Not Detect) C. difficile Tox (PCR) (Not Detect) Salmonella (PCR) (Not Detect) 08/15/19 08/15/19 08/15/19 Range/Units 15:40 16:34 19:24 WBC (4.5-11.0) X10^3/uL RBC (4.0-5.2) X10^6/uL Hgb (12.0-16.0) g/dL Hct (36-46) % MCV (80-100) fL MCH (26-34) PG MCHC (30-36) % RDW (11.6-14.8) % Plt Count (150-400) X10^3/uL Neut % (Auto) (50-75) % Lymph % (Auto) (25-40) % [place] % (Auto) (3-14) % Eos % (Auto) (2-4) % Baso % (Auto) (0-2) % Neut # (Auto) (0550-9703) /uL Lymph # (Auto) (8541-0674) /uL [place] # (Auto) (0-900) /uL Eos # (Auto) (0-450) /uL Baso # (Auto) (0-100) /uL PT (10.1-12.7) SECONDS INR (0.9-1.3) APTT (26.4-36.2) SECONDS Sodium (137-145) mmol/L Potassium (3.4-5.1) mmol/L Chloride (98-107) mmol/L Carbon Dioxide (22-32) mmol/L BUN (7-17) mg/dL Creatinine (0.52-1.04) mg/dL Estimated GFR (>60) mL/min BUN/Creatinine Ratio (6-22) Glucose (70-100) mg/dL Lactate 0.9 (0.7-2.1) mmol/L Calcium (8.4-10.2) mg/dL Total Bilirubin (0.2-1.3) mg/dL AST (14-36) IU/L ALT (<35) IU/L Alkaline Phosphatase (38-126) U/L Total Protein (6.3-8.2) g/dL Albumin (3.5-5.0) g/dL Globulin (1.7-4.1) g/dL Albumin/Globulin Ratio (1.0-2.8) Lipase (23-300) U/L Urine RBC 1-5/hpf (0-5/HPF) Urine WBC None seen (0-5/HPF) Urine Bacteria None seen (None) Ur Culture Indicated? Cult not indicated Stl C. cayetanensis PCR Not detected (Not Detect) Stool Rotavirus (PCR) Not detected (Not Detect) Stool Adenovirus (PCR) Not detected (Not Detect) Stool Astrovirus (PCR) Not detected (Not Detect) Stool Cryptosporidium PCR Not detected (Not Detect) Stl E.coli Shiga Tox PCR Not detected (Not Detect) St Sh/Enteroin Ecoli PCR Not detected (Not Detect) Stool E coli O157 PCR Not Reportable Stl Enterotoxigenic E PCR Not detected (Not Detect) Stool EPEC (PCR) Not detected (Not Detect) Stl E. histolytica PCR Not detected (Not Detect) Stool Giardia Lamblia PCR Not detected (Not Detect) Stool Sapovirus (PCR) Not detected (Not Detect) Stl P. shigelloides PCR Not detected (Not Detect) St Y.enterocolitica PCR Not detected (Not Detect) Stool Vibrio (PCR) Not detected (Not Detect) Stl Vibrio cholerae PCR Not detected (Not Detect) Stl Enteroaggr Ecoli PCR Not detected (Not Detect) Stl Norovirus GI/GII PCR Not detected (Not Detect) Campylobacter (PCR) Detected H (Not Detect) C. difficile Tox (PCR) Not detected (Not Detect) Salmonella (PCR) Not detected (Not Detect) Urine Dip Bedside Urine Glucose Negative Bedside Urine Bilirubin - Negative Bedside Urine Ketone ++ 40 Urine Specific Novelty 1.010 Bedside Urine Occult Blood +/- Bedside Urine pH 7.0 Bedside Urine Protein - Negative Bedside Urine Urobilinogen - Negative Bedside Urine Nitrite - Negative Bedside Urine Leukocytes - Negative Esterase Imaging Data Abdominal x-ray: Radiologist's Impression: [address] [place] [id number] XRay Report Signed Patient: May Martinez [facility]#: [id number] : 1965Acct:[id number] Age/Sex: 53 / FDate of Service: 08/15/19 Loc: ED Accession Number: [id number] Procedure: XR acute abdomen series Ordering Provider: Dimple Aguirre-EDITA PROCEDURE: XR ACUTE ABDOMEN SERIES INDICATIONS: abd pain, vomiting TECHNIQUE: One view chest and two views of the abdomen were acquired. COMPARISON: [facility], CT, CT ABDOMEN PELVIS W CON, 08/15/2019, 15:02. FINDINGS: Surgical changes and devices: None. Chest: Lungs are clear. Heart size is normal. No pleural effusions. No pneumoperitoneum. Abdomen: No air-filled distended small bowel loops are identified demonstrating air-fluid levels. No suspicious calcifications. Visualized solid organ contours appear normal. Bones: No suspicious bony lesions. Postoperative changes of the right sacroiliac joint are present. IMPRESSION: 1. No evidence of a bowel obstruction. 2. No acute cardiopulmonary process is evident. Dictated by: Alphonse Montano M.D. on 08/15/2019 at 14:57 Approved by: Alphonse Montano M.D. on 08/15/2019 at 14:58 CT scan - abdomen/pelvis: Radiologist's Impression: [address] [place] [id number] Scan Report Signed Patient: May Martinez [facility]#: [id number] : 1965Acct:[id number] Age/Sex: 53 / FDate of Service: 08/15/19 Loc: ED Accession Number: [id number] Procedure: CT abdomen pelvis w con Ordering Provider: Dimple Aguirre-BC PROCEDURE: CT ABDOMEN PELVIS W CON INDICATIONS: abd pain, vomiting with fever TECHNIQUE: After the administration of intravenous contrast, 5 mm thick sections acquired from the diaphragm to the symphysis. 5 mm coronal and sagittal reformats were acquired. For radiation dose reduction, the following was used: automated exposure control, adjustment of mA and/or kV according to patient size. COMPARISON: None. FINDINGS: Image quality: Excellent. ABDOMEN: Lung bases: Lung bases are clear. Heart size is normal. Solid organs: Liver is normal in size and enhancement. Gallbladder is unremarkable. Biliary system is non dilated. Pancreas enhances normally. Spleen is normal in size and enhancement. No adrenal nodules. Kidneys demonstrate normal size and enhancement, without hydronephrosis. Peritoneum and bowel: Diffuse thickening of the bowel wall of the ascending colon and proximal transverse colon with thumbprinting. Consider infectious versus inflammatory versus ischemic etiologies. The bowel is otherwise unremarkable. No free air, free fluid, or abscess cavity. Nodes and vessels: No retroperitoneal or mesenteric adenopathy by size criteria. Aorta and inferior vena cava are normal in size. Miscellaneous: No ventral hernias. PELVIS: Genitourinary: Bladder wall thickness is normal. Miscellaneous: No inguinal hernias or adenopathy. Remote hysterectomy. Bones: No suspicious bony lesions. No vertebral body compression fractures. Right SI joint fusion hardware. IMPRESSION: 1. Diffuse thickening of the bowel wall of the ascending colon and proximal transverse colon with thumbprinting. Consider infectious versus inflammatory versus ischemic etiologies. Dictated by: Melquiades Bhakta M.D. on 08/15/2019 at 15:53 Approved by: Melquiades Bhakta M.D. on 08/15/2019 at 15:59 [facility] Narrative Medical decision making narrative: The patient is a 53-year-old female who presents with a chief complaint of abdominal pain, nausea and vomiting. She has evaluated this facility 2 days ago. Given that she is still unable to keep down fluids, overall feels worse we did obtain a CT scan which is concerning for diffuse thickening of the bowel wall and the ascending colon and proximal transverse colon. I spoke with Dr. Bajwa and we reviewed her CT results, elected to start her on steroids as well as Cipro and Flagyl. I discussed this at length the patient, and she felt much improved after the above-stated therapies. She was able to tolerate oral antibiotics, so I gave her prescriptions thereof as well as Zofran, Melcher [place] and Reglan. Encouraged very close follow-up with primary care provider as well as very strict return precautions including inability keep down fluids, any acute concerns. Patient has no questions or concerns upon discharge and states understanding of return precautions as well as follow-up care. <Stevan Bajwa MD - Last Filed: 08/16/19 07:18> Lab Data Labs: Lab Results 08/15/19 08/15/19 08/15/19 Range/Units 14:15 14:15 14:15 WBC 14.7 H (4.5-11.0) X10^3/uL RBC 4.62 (4.0-5.2) X10^6/uL Hgb 14.5 (12.0-16.0) g/dL Hct 41.7 (36-46) % MCV 90.2 (80-100) fL MCH 31.3 (26-34) PG MCHC 34.7 (30-36) % RDW 12.9 (11.6-14.8) % Plt Count 350 (150-400) X10^3/uL Neut % (Auto) 75.4 H (50-75) % Lymph % (Auto) 11.6 L (25-40) % [place] % (Auto) 12.6 (3-14) % Eos % (Auto) 0.0 L (2-4) % Baso % (Auto) 0.4 (0-2) % Neut # (Auto) 04861 H (2942-8627) /uL Lymph # (Auto) 1700 (2005-2831) /uL [place] # (Auto) 1900 H (0-900) /uL Eos # (Auto) 0 (0-450) /uL Baso # (Auto) 100 (0-100) /uL PT 12.5 (10.1-12.7) SECONDS INR 1.1 (0.9-1.3) APTT 30 D (26.4-36.2) SECONDS Sodium 136 L (137-145) mmol/L Potassium 3.3 L (3.4-5.1) mmol/L Chloride 97 L (98-107) mmol/L Carbon Dioxide 29 (22-32) mmol/L BUN 14 (7-17) mg/dL Creatinine 0.65 (0.52-1.04) mg/dL Estimated GFR > 60.0 (>60) mL/min BUN/Creatinine Ratio 21.5 (6-22) Glucose 109 H (70-100) mg/dL Lactate (0.7-2.1) mmol/L Calcium 9.9 (8.4-10.2) mg/dL Total Bilirubin 0.4 (0.2-1.3) mg/dL AST 32 (14-36) IU/L ALT 31 (<35) IU/L Alkaline Phosphatase 87 (38-126) U/L Total Protein 8.4 H (6.3-8.2) g/dL Albumin 4.6 (3.5-5.0) g/dL Globulin 3.8 (1.7-4.1) g/dL Albumin/Globulin Ratio 1.2 (1.0-2.8) Lipase 56 D (23-300) U/L Urine RBC (0-5/HPF) Urine WBC (0-5/HPF) Urine Bacteria (None) Ur Culture Indicated? Stl C. cayetanensis PCR (Not Detect) Stool Rotavirus (PCR) (Not Detect) Stool Adenovirus (PCR) (Not Detect) Stool Astrovirus (PCR) (Not Detect) Stool Cryptosporidium PCR (Not Detect) Stl E.coli Shiga Tox PCR (Not Detect) St Sh/Enteroin Ecoli PCR (Not Detect) Stool E coli O157 PCR Stl Enterotoxigenic E PCR (Not Detect) Stool EPEC (PCR) (Not Detect) Stl E. histolytica PCR (Not Detect) Stool Giardia Lamblia PCR (Not Detect) Stool Sapovirus (PCR) (Not Detect) Stl P. shigelloides PCR (Not Detect) St Y.enterocolitica PCR (Not Detect) Stool Vibrio (PCR) (Not Detect) Stl Vibrio cholerae PCR (Not Detect) Stl Enteroaggr Ecoli PCR (Not Detect) Stl Norovirus GI/GII PCR (Not Detect) Campylobacter (PCR) (Not Detect) C. difficile Tox (PCR) (Not Detect) Salmonella (PCR) (Not Detect) 08/15/19 08/15/19 08/15/19 Range/Units 15:40 16:34 19:24 WBC (4.5-11.0) X10^3/uL RBC (4.0-5.2) X10^6/uL Hgb (12.0-16.0) g/dL Hct (36-46) % MCV (80-100) fL MCH (26-34) PG MCHC (30-36) % RDW (11.6-14.8) % Plt Count (150-400) X10^3/uL Neut % (Auto) (50-75) % Lymph % (Auto) (25-40) % [place] % (Auto) (3-14) % Eos % (Auto) (2-4) % Baso % (Auto) (0-2) % Neut # (Auto) (0202-9796) /uL Lymph # (Auto) (3238-6400) /uL [place] # (Auto) (0-900) /uL Eos # (Auto) (0-450) /uL Baso # (Auto) (0-100) /uL PT (10.1-12.7) SECONDS INR (0.9-1.3) APTT (26.4-36.2) SECONDS Sodium (137-145) mmol/L Potassium (3.4-5.1) mmol/L Chloride (98-107) mmol/L Carbon Dioxide (22-32) mmol/L BUN (7-17) mg/dL Creatinine (0.52-1.04) mg/dL Estimated GFR (>60) mL/min BUN/Creatinine Ratio (6-22) Glucose (70-100) mg/dL Lactate 0.9 (0.7-2.1) mmol/L Calcium (8.4-10.2) mg/dL Total Bilirubin (0.2-1.3) mg/dL AST (14-36) IU/L ALT (<35) IU/L Alkaline Phosphatase (38-126) U/L Total Protein (6.3-8.2) g/dL Albumin (3.5-5.0) g/dL Globulin (1.7-4.1) g/dL Albumin/Globulin Ratio (1.0-2.8) Lipase (23-300) U/L Urine RBC 1-5/hpf (0-5/HPF) Urine WBC None seen (0-5/HPF) Urine Bacteria None seen (None) Ur Culture Indicated? Cult not indicated Stl C. cayetanensis PCR Not detected (Not Detect) Stool Rotavirus (PCR) Not detected (Not Detect) Stool Adenovirus (PCR) Not detected (Not Detect) Stool Astrovirus (PCR) Not detected (Not Detect) Stool Cryptosporidium PCR Not detected (Not Detect) Stl E.coli Shiga Tox PCR Not detected (Not Detect) St Sh/Enteroin Ecoli PCR Not detected (Not Detect) Stool E coli O157 PCR Not Reportable Stl Enterotoxigenic E PCR Not detected (Not Detect) Stool EPEC (PCR) Not detected (Not Detect) Stl E. histolytica PCR Not detected (Not Detect) Stool Giardia Lamblia PCR Not detected (Not Detect) Stool Sapovirus (PCR) Not detected (Not Detect) Stl P. shigelloides PCR Not detected (Not Detect) St Y.enterocolitica PCR Not detected (Not Detect) Stool Vibrio (PCR) Not detected (Not Detect) Stl Vibrio cholerae PCR Not detected (Not Detect) Stl Enteroaggr Ecoli PCR Not detected (Not Detect) Stl Norovirus GI/GII PCR Not detected (Not Detect) Campylobacter (PCR) Detected H (Not Detect) C. difficile Tox (PCR) Not detected (Not Detect) Salmonella (PCR) Not detected (Not Detect) Urine Dip Bedside Urine Glucose Negative Bedside Urine Bilirubin - Negative Bedside Urine Ketone ++ 40 Urine Specific Novelty 1.010 Bedside Urine Occult Blood +/- Bedside Urine pH 7.0 Bedside Urine Protein - Negative Bedside Urine Urobilinogen - Negative Bedside Urine Nitrite - Negative Bedside Urine Leukocytes - Negative Esterase Discharge Plan Departure Patient Disposition: Home Clinical Impression: Colitis, Hypokalemia Abdominal pain Qualifiers: Abdominal location: generalized Qualified Code(s): R10.84 - Generalized abdominal pain Nausea & vomiting Qualifiers: Vomiting type: unspecified Vomiting Intractability: non-intractable Qualified Code(s): R11.2 - Nausea with vomiting, unspecified Discharge Date/Time: 08/15/19 19:33 Instructions: DI for Abdominal Pain-Adult, Nausea and Vomiting-Adult, DI for Colitis Activity Restrictions/Additional Instructions: Thank you for trusting us with your care today As discussed, your CT shows concern of infection and inflammation in your colon. We elected to treat you with steroids as well as antibiotics. I sent [address] [facility] in [place]. This includes pain medicine, 2 different nausea medicines and 2 different antibiotics As discussed, please follow-up with primary care provider in the next few days. Please eat a light diet, focusing on fluids. As discussed, please come back to the emergency department for any acute concerns such as inability keep down fluids or medications etcetera I have given you a prescription of a narcotic for pain. Be aware that this can be constipating and sedating. I encouraged taking with a stool softener, pushing fluids and fiber. Do not take and drive, operate heavy machinery, etc. Do not combine it with any other sedating substances such as alcohol. The combination of narcotics and alcohol and/or other sedatives can be lethal. As discussed, please monitor for tendon pain with the ciprofloxacin and follow up if this occurs Prescriptions: New hydrocodone-acetaminophen [Melcher [place]] 5-325 mg tablet 1 tab PO Q4-6H PRN (Reason: pain) Qty: 10 RF: 0 metoclopramide HCl 10 mg tablet 10 mg PO Q6H PRN (Reason: nausea and vomiting) Qty: 20 RF: 0 prednisone 20 mg tablet 40 mg PO DAILY 3 Days Qty: 6 RF: 0 metronidazole 500 mg tablet 500 mg PO TID 7 Days Qty: 21 RF: 0 ciprofloxacin HCl 500 mg tablet 500 mg PO BID Qty: 14 RF: 0 No Action carisoprodol 350 MG tablet 350 mg PO QID Qty: 0 RF: 0 hydrocodone-acetaminophen [[place]cher [place]] 7.5 MG/325 MG tablet 1 tab PO PRN PRNQty: 0 RF: 0 LEVOTHYROXINE SODIUM 100 mcg PO QDAY Qty: 0 RF: 0 [ESTROGEN CREAM] Qty: 0 RF: 0 tramadol 50 MG tablet 50 mg PO Q6HP PRNQty: 20 RF: 0 amoxicillin-pot clavulanate [Augmentin] 875 MG/125 MG tablet 875 mg PO BID Qty: 13 RF: 0 ondansetron 4 mg tablet,disintegrating 4 mg PO Q6H PRN (Reason: nausea and vomiting) Qty: 10 RF: 0
[2019-08-15 15:57] LABS: Culture Indicated Urine Cult Not Indicated; RBC Urine 1-5/HPF (0-5/HPF)
[2019-08-15 16:15] VITALS: BP 174/82; PULSE 72; RESP 17; O2SAT 99
[2019-08-15 16:42] LABS: Lactate (Lactic Acid) 0.9 mmol/L (0.7-2.1)
[2019-08-15] MEDS: methylPREDNISolone 125 MG/2 ML VIAL IV (17:06)
[2019-08-15] MEDS: metroNIDAZOLE 250 MG TABLET 500 MG PO (18:04)
[2019-08-15] MEDS: CIPROFLOXACIN 500 MG TABLET PO (18:04)
[2019-08-15 18:45] VITALS: BP 188/88; PULSE 75; RESP 18; O2SAT 99
[2019-08-15 19:01] VITALS: BP 166/78; PULSE 68
[2019-08-15] MEDS: POTASSIUM CHLORIDE 20 MEQ TAB 40 MEQ PO (19:28)
[2019-08-15 21:07] LABS: Adenovirus F 40/41 Not Detected (Not Detect); Astrovirus Not Detected (Not Detect); Clostridium difficile toxin AB Not Detected (Not Detect); Cryptosporidium Not Detected (Not Detect); Cyclospora cayetanensis Not Detected (Not Detect); Entamoeba histolytica Not Detected (Not Detect); Enteroaggregative E.coli Not Detected (Not Detect); Enteropathogenic E.coli Not Detected (Not Detect); Enterotoxigenic E.coli It/st Not Detected (Not Detect); Giardia lamblia Not Detected (Not Detect); Norovirus GI/GII Not Detected (Not Detect); Plesiomonsa shigelloides Not Detected (Not Detect); Rotavirus A Not Detected (Not Detect); Salmonella Not Detected (Not Detect); Sapovirus Not Detected (Not Detect); Shiga-like toxin-prod E.coli Not Detected (Not Detect); Shigella/Enteroinvasive E.coli Not Detected (Not Detect); Vibrio Not Detected (Not Detect); Vibrio cholerae Not Detected (Not Detect); Yersinia enterocolitica Not Detected (Not Detect)
[2019-08-15 21:08] LABS: Campylobacter Detected (Not Detect)
== END 2019-08-15 19:33 | disposition home or self-care (01) ==
PROVIDERS: Emergency Medicine; Emergency Provider Nurse Practitioner Family; Family Provider Student in an Organized Health Care Education/Training Program
DX: K52.9 Noninfective gastroenteritis and colitis, unspecified (principal); E87.6 Hypokalemia; R10.84 Generalized abdominal pain; R11.2 Nausea with vomiting, unspecified
CPT/HCPCS: 36415; 74022; 74177; 80053; 81003; 81015; 83605; 83690; 85025; 85610; 85730; 87507; 96361; 96374; 96375; 96376; 99284; J2270; J2405; J2765; J2930; Q9967

== ENCOUNTER → 2019-12-18 11:39 | Outpatient (CLI) | payer OTHER, SELFPAY ==
[2019-12-18 13:04] LABS: Add Manual Diff / Slide Review NO; Basophils Absolute Auto 0 /uL (0-100); Basophils Percent Auto 0.5 % (0-2); Eosinophils Absolute Auto 100 /uL (0-450); Hematocrit 42.4 % (36-46); Hemoglobin 14.2 g/dL (12.0-16.0); Lymphocytes Absolute Auto 1400 /uL (1100-4500); Lymphocytes Percent Auto 14.8 % (25-40); Mean Corpuscular HGB Conc 33.4 % (30-36); Mean Corpuscular Hemoglobin 30.9 PG (26-34); Mean Corpuscular Volume 92.3 fL (80-100); Monocytes Absolute Auto 600 /uL (0-900); Neutrophils Absolute Auto 7400 /uL (1500-7000); Neutrophils Percent Auto 77.7 % (50-75); Platelet Count 292 X10^3/uL (150-400); Red Blood Cell Count 4.59 X10^6/uL (4.0-5.2); Red Cell Distribution Width 12.9 % (11.6-14.8); White Blood Cell Count 9.5 X10^3/uL (4.5-11.0)
[2019-12-18 13:33] LABS: BUN Creatinine Ratio 20.6 (6-22); Blood Urea Nitrogen 14 mg/dL (7-17); Calcium 10.1 mg/dL (8.4-10.2); Carbon Dioxide 32 mmol/L (22-32); Chloride 102 mmol/L (98-107); Estimated Glomerular Filt Rate > 60.0 mL/min (>60); Glucose 79 mg/dL (70-100); HEMOLYSIS < 15 (0-50); Potassium 5.2 mmol/L (3.4-5.1); Sodium 138 mmol/L (137-145)
== END ==
PROVIDERS: Family Provider Student in an Organized Health Care Education/Training Program; PCP Nurse Practitioner; Referring Provider Orthopaedic Surgery Orthopaedic Surgery of the Spine; Visit Provider Orthopaedic Surgery Orthopaedic Surgery of the Spine
DX: Z01.818 Encounter for other preprocedural examination (principal); Z01.812 Encounter for preprocedural laboratory examination
CPT/HCPCS: 36415; 80048; 85025; 93005

== ENCOUNTER → 2019-12-21 14:12 | Outpatient (CLI) | payer OTHER, SELFPAY ==
[2019-12-22 15:08] LABS: COVID19 Sendout Not Detected (Not Detect)
== END ==
PROVIDERS: Family Provider Student in an Organized Health Care Education/Training Program; PCP Nurse Practitioner; Visit Provider Physician Assistant
DX: Z01.812 Encounter for preprocedural laboratory examination (principal)
CPT/HCPCS: 87635

== ENCOUNTER 2019-12-25 14:45 | Observation (INO) | payer OTHER, SELFPAY ==
[2019-12-17 13:54] VITALS: BMI 28.5
[2019-12-24] VITALS (13 sets, daily range): BP systolic 127–185; BP diastolic 73–117; PULSE 69–97; RESP 12–20; TEMP 36.3–36.8; O2SAT 92–99; BMI 28.5
--- NOTE | 2019-12-24 | DI.RAD.S_ITS ---
P show ROCEDURE: XR LUMBAR SPINE 2-3V INDICATIONS: L5-S1 TLIF TECHNIQUE: 2 views of the lumbar spine were acquired. COMPARISON: None. FINDINGS: Spot fluoroscopic images demonstrating L5-S1 spinal fixation with paraspinal meche and pedicle screws. Interbody cage graft also noted. Expected intraoperative alignment Dictated by: Christian Welch M.D. on 12/24/2019 at 15:33 Approved by: Christian Welch M.D. on 12/24/2019 at 15:33
[2019-12-24] MEDS: ACETAMINOPHEN 325 MG TABLET 975 MG PO (10:36)
[2019-12-24] MEDS: LACTATED RINGERS 1,000 ML 42 ML IV ×2 (10:36→14:43)
[2019-12-24] MEDS: SCOPOLAMINE 1 PATCH TOP (10:36)
--- NOTE | 2019-12-24 11:47 | PM.PREOP ---
Pre-operative Note COVID-19 COVID-19 status: Negative Result date/Date tested (Pos, Neg/Pending): 12/22/19 Interval Note History & Physical reviewed/Exam performed by Physician: Yes Changes to H&P: No
[2019-12-24] MEDS: CEFAZOLIN 2 GM/100 ML FROZ.PIGGY IV (12:34)
--- NOTE | 2019-12-24 13:02 | SUR.OPER ---
Prone on spine table, head in foam head support, padded chest and pelvic supports, gel pad at knees, lower legs supported by pillows; nipples, genitalia and toes free of pressure, arms secured on foam padded arm boards at <90 degrees abduction. Tape over blanket at thigh secured to table.
[2019-12-24] MEDS: BUPIVACAINE LIPOSOME 266 MG/20 ML VIAL INJ (13:13)
[2019-12-24] MEDS: BUPIVACAINE 0.25% W/ EPI 30 ML VIAL INJ (13:14)
--- NOTE | 2019-12-24 15:29 | P.OP_ITS ---
Operative Date/Time/Diagnoses Date of procedure: 12/24/19 Time of procedure: 13:03 Pre-op diagnosis: 1. L5-S1 spondylolisthesis 2. L5-S1 spondylosis with radiculopathy Post-op diagnosis: same Procedure & Clinicians Procedure: 1. L5-S1 Postero-lateral and posterior interbody fusion 2. L5-S1 interbody cage placement. 3. L5-S1 decompressive laminectomy with bilateral facetecomies 4. L5-S1 Posterior non-segmental instrumentation 5. Barton of bone marrow from iliac crest 6. Utilization of microsurgical technique and operating microscope Same procedure as scheduled: Yes Indications: Patient has been having chronic back pain and worsening lumbar radiculopathy. Patient failed multiple conservative management with worsening pain weakness and numbness in her lower extremity. Patient has been having difficulty performing activity of daily living. After discussing risks benefits of treatment options, patient elected proceed with surgery. Surgeon: Angela Goetz Wet Process Miller: Jessi Donald'Brien Click Yes if Unassisted: No Anesthesia Type: General Operative Notes Closure Type: primary Specimen(s): none sent Prosthetic devices, grafts, tissues, transplants, or devices: Globus revolve screws, Rise cage Estimated Blood Loss (mL): 50 Blood products transfused: none Procedure in detail: Patient was seen in the preoperative area. Risks and benefits of the surgery was discussed with the patient. Informed consent was obtained from the patient and placed in the chart. Surgical site was marked. Patient was taken to the operative room. General anesthesia was administered. Prophylactic antibiotic was given to the patient less than 30 min before the incision was made. Patient was placed into a prone position on the Fred table. Patient's back was then prepped and draped in the sterile fashion. Time- out was performed at this time. Using AP and lateral C-arm imaging the interval between L5-S1 was identified and marked on patient's back. A 2 inch incision 2 in from midline was made on the right side first. The fascia was incised in line with skin incision. Globus MARS retractors was placed inside the incision and docked onto the L5 lamina. Using microsurgical technique and operating microscope, a L5 laminectomy and L5-S1 facetectomy was performed using a Kerrison rongeur. Patient was found have severe neural foramen stenosis at L5-S1 level. After the laminectomy and facetectomy the neural foramen was fully decompressed. The L5-S1 level was grossly unstable after the decompression was completed requiring fusion procedure at same time. The disc space at L5-S1 was identified. And a total diskectomy was performed at L5-S1 level. The endplates were decorticated using a rasp and shaver. The total diskectomy and decortication was performed at L5-S1 level in order to to accomplish a L5-S1 fusion. The local bone from the laminectomy and facetectomy was saved for local bone grafting. After the total diskectomy and decortication was completed, Trifecta bone graft material was combined with local bone that was harvested earlier. At this time, a separate skin is incision was made over the iliac crest. A Jamshidi needle was inserted into the iliac crest through a separate skin incision. 5 cc of bone marrow aspiration was obtained through the separate skin incision using a Jamshidi needle from the iliac crest. The bone marrow aspiration was combined with local bone and the Trifecta bone grafting material. The bone grafting material was placed into the L5-S1 interbody space along with a expandable cage. The cage was expanded to its maximum height using the torque limiting screwdriver. At this time a mirror image incision was made on the left side. The fascia was incised in line with the skin incision. Globus MARS retractor was inserted and docked onto the L5-S1 posterolateral gutter. Using the power drill, posterior- lateral decortication was performed at L5-S1 level until bleeding cortical bone was identified. The remaining bone grafting material was placed into the L5-S1 posterior lateral gutter he order to accomplish posterolateral fusion at the L5- S1 level. Using the double C-arm technique, pedicle screws were placed into the L5 and S1 pedicles bilaterally. This was done by placing the Jamshidi needle into the pedicles, then placing the guidewires over the Jamshidi needle, and finally placing the cannulated screws over the guidewires bilaterally. After the pedicle screws were placed, 2 titanium rods was locked into the heads of the pedicle screws using locking caps and torque limiting screwdriver. After all the hardware was placed, and confirmed with AP and lateral C-arm i maging, the wound was then irrigated with sterile normal saline and packed with Ray-Ki gauze for 3 min to accomplish hemostasis. After the gauze was removed the deep fascia was closed with #1 Vicryl suture. The subcutaneous layer was closed with 2-0 Vicryl. The skin was closed with skin phi. Patient tolerated the procedure well. There were no complications. Complications: none Post-operative Condition: stable Disposition: PACU Plan for aftercare: Admit to inpatient hospital
[2019-12-24] MEDS: HYDROMORPHONE 2 MG INJ IV ×4 (15:38→15:52)
[2019-12-24] MEDS: OXYCODONE IR 5 MG TABLET PO ×2 (15:39→16:11)
[2019-12-24] MEDS: SODIUM CHLORIDE 0.9% 1,000 ML 100 ML IV (16:44)
[2019-12-24] MEDS: HYDROMORPHONE 0.5 MG INJ IV ×4 (16:58→22:56)
[2019-12-24] MEDS: carisoprodoL 350 MG TABLET PO ×2 (17:38→21:02)
[2019-12-24] MEDS: OXYCODONE IR 10 MG TABLET PO ×2 (18:29→22:08)
[2019-12-24] MEDS: hydrOXYzine pamoate 25 MG CAPSULE PO (19:37)
[2019-12-24] MEDS: ACETAMINOPHEN 325 MG TABLET 650 MG PO (21:02)
[2019-12-24] MEDS: DOCUSATE 100 MG CAPSULE PO (21:02)
[2019-12-24] MEDS: CEFAZOLIN 1 GM/50 ML FROZ.PIGGY IV (21:02)
[2019-12-24] MEDS: SENNOSIDES 8.6 MG TABLET 17.2 MG PO (21:02)
--- NOTE | 2019-12-24 22:23 | PC.NURSE ---
pt's pain is still around 10/12. notified Dr. Waggoner. VTO to change dilaudid IV to q1H and a new order for dilaudid PO 2-4mg PRN.
[2019-12-25] VITALS: BP 158/80; PULSE 88; RESP 16; TEMP 36.8; O2SAT 98
[2019-12-25] MEDS: HYDROMORPHONE 0.5 MG INJ IV ×7 (00:07→23:08)
[2019-12-25] MEDS: HYDROMORPHONE 2 MG TABLET PO (00:25)
[2019-12-25] MEDS: hydrOXYzine pamoate 25 MG CAPSULE PO ×2 (00:25→20:23)
--- NOTE | 2019-12-25 02:53 | PC.NURSE ---
Addendum entered by Harley Lara R.N. 12/25/19 05:14: Rec'd order from Dr. Waggoner for 5mg Diazepam. Pt reports that pain is, there but more tolerable after this dose. Original Note: Pt continues to c/o of lower lumbar pain -10/12. 0.5 IV dilaudid and 2mg PO dilaudid only lower her pain score by 1 point. Pt is repositioned, given ice and emotional support and finds little to no comfort. 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 Pt wants to try 4mg PO dilaudid and then agrees that the on-call doctor should be consulted if she still finds no relief. Will continue to monitor.
[2019-12-25] MEDS: HYDROMORPHONE 4 MG TABLET PO ×7 (03:34→22:08)
[2019-12-25 04:26] VITALS: BP 151/68; PULSE 86; RESP 16; TEMP 36.7; O2SAT 94
[2019-12-25] MEDS: diazePAM 5 MG TABLET PO ×3 (04:32→17:49)
[2019-12-25] MEDS: CEFAZOLIN 1 GM/50 ML FROZ.PIGGY IV (04:32)
[2019-12-25] MEDS: DOCUSATE 100 MG CAPSULE PO ×2 (08:33→21:28)
[2019-12-25] MEDS: SERTRALINE 50 MG TABLET 100 MG PO (08:33)
[2019-12-25 09:10] VITALS: BP 135/68; PULSE 88; RESP 16; TEMP 36.7; O2SAT 94
--- NOTE | 2019-12-25 09:25 | PT.IIE ---
Current Diagnoses Spondylolisthesis, lumbosacral region (12/24/19) Spinal stenosis, lumbar region without neurogenic claudication (12/24/19) Radiculopathy, lumbar region (12/24/19) Surgery Performed Operation Date: 12/24/19 11:45 Actual Procedures p L5-S1 TLIF - Angela Goetz MD Surgical History (Last Updated 12/17/19 @ 14:15 by Kelly Gallego, RN) History of back surgery (Acute 2015) History of (Acute) History of removal of ovarian cyst (Acute) Hx of appendectomy (Acute) Hx of dilation and curettage (Acute 1993) Hx of total hysterectomy (Acute 2009) Medical History (Last Updated 12/17/19 @ 14:15 by Kelly Gallego RN) Arthritis (Acute) Bitten by racmasha, initial encounter (Inactive) Hematoma of arm (Inactive) History of stroke (Inactive) Hypothyroidism (Acute) Osteoarthritis of lumbar spine (Inactive) Radial head fracture, closed (Inactive) Sciatica (Acute) Physical Therapy Inpatient Evaluation/Re-Eval M1 PT/OT-IP Prior Functional Status Start: 12/25/19 12:14 Freq: NEEDED Status: Active Protocol: Document 12/25/19 09:25 AB (Rec: 12/25/19 12:26 AB [email or web address]) Medical Review Prior Functional Status Medical History Reviewed Yes Communication able to make needs known Mobility and Gait pt stated that she is independent with all mobilities and ambulation without AD Social History Household Members spouse,family,children Living Arrangements House Number of Floors (Floors) Two Floors Number of Stairs To Enter/Railing? 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 [employer] M2 PT-IP Current Condition Start: 12/25/19 12:14 Freq: NEEDED Status: Active Protocol: Document 12/25/19 09:25 AB (Rec: 12/25/19 12:26 AB [email or web address]) Physical Therapy Current Condition Current Condition Evaluation Date 12/25/19 Treatment Diagnosis s/p L5S1 fusion/lami; difficulty in walking Onset Date 12/24/19 M3 PT-IP Subjective Start: 12/25/19 12:14 Freq: NEEDED Status: Active Protocol: Document 12/25/19 09:25 AB (Rec: 12/25/19 12:26 [id number]) Subjective Physical Therapy Visit Type Type Initial Evaluation Visit Start Time 09:25 Visit Stop Time 10:06 Total Visit Minutes 41 Number of BULK DRIVER Visits 0 Physical Therapy Visit Comments Patient Comments pt is agreeable to do PT Therapy Pain Assessment Pain When Pain Assessed At Rest Pain Present Pain Present Pain Reported Location back Intensity 8 Scale Used Numeric (0 - 10) Pain Management Techniques Apply Cold,Distraction, Modification of Treatment,Re- positioning,Timing of Activity with Medications M4 PT-IP Mobility and Gait Start: 12/25/19 12:14 Freq: NEEDED Status: Active Protocol: Document 12/25/19 09:25 AB (Rec: 12/25/19 12:26 [id number]) PT-Bed Mobility Assessment Rolling Type of Rolling Log Rolling Level of Assist Minimal Assistance,1 Person Assistance Supine to Sit Supine to Sit Minimal Assistance,1 Person Assistance Sit to Supine Sit to Supine Standby Assistance PT-Transfer Assessment Sit to and From Stand Sit to and from Stand Minimal Assistance,1 Person Assistance,Use of Upper Extremities Equipment Transfer Assistive Device Gait Belt,Front Wheeled Walker Orthotic/Prosthetic Devices or Brace: No Transfers Transfer Destination Chair Transfer Technique Stand Step Pivot Transfer Ability Level of Assist Minimal Assistance,1 Person Assistance,Use of Upper Extremities Comments Mobility Comments BP: 138/75 in supine: educated pt on back precautions and log roll bed mobility. completed supine to sit min A and cues. pt was able to sit on EOB sit on EOB CGA. BP in sittin/83. pt completed sit to stand min A and cues. able to take steps ~ 2 ft and stated that she will just sit on the chair . c/o slight dizziness. BP in sittin/88. positioned pt on chair. call light and table placed within reach. pt has a 4WW at home but stated that she can borrow a FWW if needed. Gait Assessment Gait Gait Assistance Required: Minimum Assistance Distance (Feet) 2 Able to Maintain Weight Bearing Status Yes During Gait Assistive Devices Assistive Device Gait Belt,Front Wheeled Walker Orthotic/Prosthetic Devices or Brace: No Gait Deviations General Gait Pattern Antalgic,Decreased Stride Length,Decreased Feet Clearance Factors Limiting Gait Function Factors Limiting Gait Function Decreased Activity Tolerance, Decreased Strength,Limited Range of Motion,Pain,Poor Balance PT-Balance Assessment Sitting Balance and Reactions Static Sitting Balance Ability Good Dynamic Sitting Balance Ability Good Standing Balance and Reactions Static Standing Balance Ability Fair Dynamic Standing Balance Ability Fair Device Used FWW M5 PT-IP Objective Assessments Start: 12/25/19 12:14 Freq: NEEDED Status: Active Protocol: Document 12/25/19 09:25 AB (Rec: 12/25/19 12:26 AB [email or web address]) Orientation Orientation/Cognition Level of Alertness Alert Orientation Name,Age,Birthday,Month,Date, Year,Day of Week,Place, Situation Language Function Ability No Deficits Noted Safety Awareness Understands Safety Issues Memory Description No Deficits Noted Gross Range of Motion Lower Extremity ROM Assessment Within Functional Limits Strength Lower Extremity Strength Assessment Bilaterally Impaired Comments Strength Comments RLE 3+/5 LLE: 4-/5 Coordination Assessment Gross Coordination Gross Coordination WNL Sensation Assessment Sensation Gross Sensation WNL Muscle Tone Muscle Tone WNL Yes M6 PT-IP Treatment Start: 12/25/19 12:14 Freq: NEEDED Status: Active Protocol: Document 12/25/19 09:25 AB (Rec: 12/25/19 12:26 AB [email or web address]) Physical Therapy Treatment Education Education Provided Precautions,Weight Bearing Status,Post-Op Packet,Safety M7 PT-IP Assessment and Plan Start: 12/25/19 12:14 Freq: NEEDED Status: Active Protocol: Document 12/25/19 09:25 AB (Rec: 12/25/19 12:26 AB [email or web address]) PT Summary Assessment and Plan Potential Rehabilitation Potential Good Status of Condition at Evaluation Evolving Summary Impairments Pain,ROM,Strength,Balance,Tone ,Cognition,Bed Mobility, Transfers,Gait,Activity Tolerance Assessment Summary pt requiring min A with mobility but was unable to tolerate much activity with c/ o increase pain and slight dizziness. pt plans to go home and spouse will assist pt and her children will be able to assist as well. will continue to assess progress for safe d/c plan. will conduct caregiver training when appropriate. Goals Bed Mobility Goal Independent Transfer Goal Independent,Front Wheeled Walker,Four Wheeled Walker Gait Goal Independent,Front Wheel Walker ,Four Wheel Walker Gait Distance 250 Days to Meet Goals 5 Frequency of Treatment Frequency Of Treatment Twice a Day Treatment Plan Physical Therapy Treatment Plan Bed Mobility Training,Transfer Training,Gait Training, Therapeutic Exercise,Balance Retraining,Post Op Education, Discharge Planning,Hot or Cold Pack,Neuromuscular Re-ed, Coordination Retraining,Manual Therapy Recommendations To Nursing Amount of Assist Needed 1 Person Assist Discharge Recommendations PT Discharge Recommendations Home with Assistance Transportation Needs at Discharge Private Vehicle
--- NOTE | 2019-12-25 10:17 | PC.NURSE ---
Assess- Patient is A&Ox3, she denies pain at this time. Given 4mg of dilaudid po and seems to be helping patients low back discomfort. She is up in the chair after working with physical therapy. We are not giving patient her soma but using valium q 6 hours as this seems to work better for patient. She is groggy now, will reassess patient in 30 minutes to see how she is feeling. Her dressing to lower back is cdi, and she states that the numbness in her small finger is getting better.
--- NOTE | 2019-12-25 12:53 | PM.PN.1 ---
Subjective Subjective Date Patient Seen: 12/25/19 Time Patient Seen: 12:53 Interval history: Patient is POD#1 s/p L5-S1 TLIF with Dr. Goetz. Poor pain control overnight. Pain is about the incision. Some soreness in the legs but no radicular symptoms. Was able to mobilize about the room in the afternoon. She has been tolerating a diet and is voiding appropriately. No chest pain or shortness of breath. Exam Vital Signs (past 8 hours): - 12/25/19 09:10 Temperature 98.0 F Pulse Rate 88 Respiratory Rate 16 Blood Pressure 135/68 Pulse Oximetry 94 Oxygen Delivery Method Room Air Oxygen Flow Rate 0 Narrative Exam Narrative: 54 year old female resting in bed. Alert and oriented in moderate discomfort. Dressing is CDI. 5/5 BLE. Calves are soft, nontender. Assessment & Plan Assessment & Plan narrative: Patient is POD#1, progressing slowly today. Pain control: Patient had poor pain control overnight and into POD#1. She is not opioid naive and takes [place]/Tramadol as well as Soma at home. She was transitioned from Oxycodone to oral Dilaudid overnight and frequently utilized IV Dilaudid as well for breakthrough as well. Valium was added for spasm overnight. Discussed with the patient today that we will utilize either Soma or Valium but together along with both oral and IV Dilaudid there is too much risk for respiratory depression. Patient notes greater relief with Valium at this time so will be utilizing this for now. If no improvement in pain control tonight will consider decadron, however at this time pain is not radicular and seems unlikely for this to provide relief. Otherwise encouraged her to continue working with PT. Her is available as senior customer service representative. Anticipate discharge to home tomorrow as she continues to progress with PT.
--- NOTE | 2019-12-25 13:27 | PT.IPTN ---
Current Diagnoses Spondylolisthesis, lumbosacral region (12/24/19) Spinal stenosis, lumbar region without neurogenic claudication (12/24/19) Radiculopathy, lumbar region (12/24/19) Surgery Performed Operation Date: 12/24/19 11:45 Actual Procedures p L5-S1 TLIF - Angela Goetz MD Physical Therapy Treatment Note M2 PT-IP Current Condition Start: 12/25/19 12:14 Freq: NEEDED Status: Active Protocol: Document 12/25/19 09:25 AB (Rec: 12/25/19 12:26 AB [id number]) Physical Therapy Current Condition Current Condition Evaluation Date 12/25/19 Treatment Diagnosis s/p L5S1 fusion/lami; difficulty in walking Onset Date 12/24/19 M3 PT-IP Subjective Start: 12/25/19 12:14 Freq: NEEDED Status: Active Protocol: Document 12/25/19 13:10 KS (Rec: 12/25/19 13:45 KS [id number]) Subjective Physical Therapy Visit Type Type Treatment Note Visit Start Time 13:10 Visit Stop Time 13:27 Total Visit Minutes 16 Number of RUBBER COMPOUNDER Visits 1 Physical Therapy Visit Comments Patient Comments pt is agreeable to do PT Therapy Pain Assessment Pain When Pain Assessed During Mobility Pain Present Pain Present Pain Reported Location back Intensity 6 Scale Used Numeric (0 - 10) Description Aching,Tightness Pain Behaviors Guarding,Wincing Pain Management Techniques Modification of Treatment,Re- positioning,Timing of Activity with Medications M4 PT-IP Mobility and Gait Start: 12/25/19 12:14 Freq: NEEDED Status: Active Protocol: Document 12/25/19 13:10 KS (Rec: 12/25/19 13:45 KS [id number]) PT-Bed Mobility Assessment Rolling Type of Rolling Log Rolling,Roll to Left Level of Assist Contact Guard Assistance,1 Person Assistance Supine to Sit Supine to Sit Minimal Assistance,1 Person Assistance Sit to Supine Sit to Supine Minimal Assistance,1 Person Assistance,Bedrails Scooting Scooting to Edge of Bed Contact Guard Assistance PT-Transfer Assessment Sit to and From Stand Sit to and from Stand Contact Guard Assistance, Minimal Assistance,1 Person Assistance,Use of Upper Extremities Equipment Transfer Assistive Device Gait Belt,Front Wheeled Walker Orthotic/Prosthetic Devices or Brace: No Transfers Transfer Destination Bed,Toilet Transfer Technique pt ambulated w/ FWW Transfer Ability Level of Assist Minimal Assistance,1 Person Assistance,Use of Upper Extremities Comments Mobility Comments Pt in bed upon arrival from therapy and able to recall 3/3 precautions. CGA and cues for logroll to L and Min A for sidelying to sit, CGA for scooting to EOB. Pt denied lightheadedness and performed sit<>stand w/ FWW CGA to Min A w/ cues for hand placement. Pt again denied dizziness when standing and performed 20 seconds weight shifting . Pt then ambulated ~10 ft to toilet CGA. CGA for sit<>stand from toilet and 10 ft ambulation to sink. Pt able to remain balanced at sink for hand hygiene. Pt then ambulated ~5 ft back to bed CGA w/ c/o increased pain, fatigue, and slight lightheadedness. Pt Min A for sit<>sup for LE assistance. Lightheadedness subsided. Pt left in bed w/ all needs in reach. Gait Assessment Gait Gait Assistance Required: Contact Guard Assist Distance (Feet) 25 Able to Maintain Weight Bearing Status Yes During Gait Assistive Devices Assistive Device Gait Belt,Front Wheeled Walker Orthotic/Prosthetic Devices or Brace: No Gait Deviations General Gait Pattern Antalgic,Decreased Stride Length,Decreased Feet Clearance Factors Limiting Gait Function Factors Limiting Gait Function Decreased Activity Tolerance, Decreased Strength,Limited Range of Motion,Pain,Poor Balance PT-Balance Assessment Sitting Balance and Reactions Static Sitting Balance Ability Good Dynamic Sitting Balance Ability Good Standing Balance and Reactions Static Standing Balance Ability Fair Dynamic Standing Balance Ability Fair Device Used FWW M5 PT-IP Objective Assessments Start: 12/25/19 12:14 Freq: NEEDED Status: Active Protocol: Document 12/25/19 09:25 AB (Rec: 12/25/19 12:26 [id number]) Orientation Orientation/Cognition Level of Alertness Alert Orientation Name,Age,Birthday,Month,Date, Year,Day of Week,Place, Situation Language Function Ability No Deficits Noted Safety Awareness Understands Safety Issues Memory Description No Deficits Noted Gross Range of Motion Lower Extremity ROM Assessment Within Functional Limits Strength Lower Extremity Strength Assessment Bilaterally Impaired Comments Strength Comments RLE 3+/5 LLE: 4-/5 Coordination Assessment Gross Coordination Gross Coordination WNL Sensation Assessment Sensation Gross Sensation WNL Muscle Tone Muscle Tone WNL Yes M6 PT-IP Treatment Start: 12/25/19 12:14 Freq: NEEDED Status: Active Protocol: Document 12/25/19 13:10 KS (Rec: 12/25/19 13:45 KS [id number]) Physical Therapy Treatment Education Education Provided Precautions,Weight Bearing Status,Post-Op Packet,Safety M7 PT-IP Assessment and Plan Start: 12/25/19 12:14 Freq: NEEDED Status: Active Protocol: Document 12/25/19 13:10 KS (Rec: 12/25/19 13:45 KS [id number]) PT Summary Assessment and Plan Potential Rehabilitation Potential Good Status of Condition at Evaluation Evolving Summary Impairments Pain,ROM,Strength,Balance,Tone ,Cognition,Bed Mobility, Transfers,Gait,Activity Tolerance Assessment Summary Pt CGA to Min A for bed mobility, CGA to Min A for sit <>stand, and CGA for ambulation. Pt required min veral cues for sequencing and hand placement. Able to tolerate 10 ft amb. to toilet, 10 ft to sink, and 5 ft back to bed, but expressed fatigue, increased pain, and slight lightheadedness follwing ambulation. D/c plan depending on progress, however anticipating pt will show further improvements tomorrow and may be safe to return home w/ spouse to provide support following caregiver training. Goals Bed Mobility Goal Independent Transfer Goal Independent,Front Wheeled Walker,Four Wheeled Walker Gait Goal Independent,Front Wheel Walker ,Four Wheel Walker Gait Distance 250 Days to Meet Goals 5 Frequency of Treatment Frequency Of Treatment Twice a Day Treatment Plan Physical Therapy Treatment Plan Bed Mobility Training,Transfer Training,Gait Training, Therapeutic Exercise,Balance Retraining,Post Op Education, Discharge Planning,Hot or Cold Pack,Neuromuscular Re-ed, Coordination Retraining,Manual Therapy Recommendations To Nursing Amount of Assist Needed 1 Person Assist Discharge Recommendations PT Discharge Recommendations Home with Assistance Transportation Needs at Discharge Private Vehicle
--- NOTE | 2019-12-25 13:39 | CM.DANOTE ---
Addendum entered by Neyda Arrieta LPN 12/25/19 14:02: Spoke with NURSE RECEPTIONIST Adwoa who saw pt early this afternoon. She stated that pt is still having alot of pain and the plan at this point is to have pt stay overnight to continue care and caregiver training. OT Humaira will see pt later today or tomorrow. Checked in then with pt, found resting in a darkened room. Introduced self and role. She confirms that the orthopedic team plans to keep her until tomorrow and I hope to be able to go home then. She confirms that her spouse will be home and available to provide supportive care as need be. Will follow prn tomorrow. P: home when stable for same. Original Note: Discharge Planning/Care Management DCP: assessment: case received, EMR reviewed. Discussed in Team Rounds. Pt is a 54 yeaer old female who admitted yesterday for a scheduled spinal/lumber surgery. Surgeon: Dr. Sofy Gutiérrez: Ashley Garcia Medical Admission status: SDC: confirmed by UR MARTÍNEZ Kramer. PT and OT were poised to see pt for first time today. Ortho NBA Burns was here this afternoon but her note is very much in draft. Will check in and follow for any d/c needs that may arise. Plan at this time is for home with spouse prn support... CM Discharge Assessment Start: 12/25/19 13:36 Freq: Status: Active Protocol: Document 12/25/19 13:38 ITV (Rec: 12/25/19 13:39 ITV [id number]) Discharge Planning Assessment Advance Directives? No History Provided By Medical Record Prior Living Arrangements House Household Members spouse,family,children Independent with ADL's Yes Is patient alert and oriented? Yes DME Already Rented / Owned FWW / Walker Comment has 4WW can borrow FWW if needed Review Status In Process Pre-Anesthesia Assessment Start: 12/17/19 13:54 Freq: Status: Active Protocol: Document 12/17/19 13:54 CAB (Rec: 12/17/19 14:27 CAB [id number]) Pre-Anesthesia Assessment Patient Information Reviewed Via Phone Assessment Assessment Completed With Patient Comment Needs to do lab/EKG, COVID screen @ 12/21/19 Primary Care Provider Margi Burns Seen Specialist in Last 12 Months Yes Specialist Seen Orthopedist,Other Comment Pain Management-Dr. Alvarenga Primary Language Bur[place]ian Solar System Designer Required No Height 157.48 cm Weight 70.76 kg Body Mass Index (BMI) 28.5 Hearing Ability Normal Visual Assist Glasses Dentition Type Teeth, Natural Present Barriers to Learning None Hx Anesthesia Reactions No Hx Family Anesthesia Reaction No Hx Malignant Hyperthermia No Hx Blood Transfusions Yes: 25 years ago, r/t bleeding ulcer Hx Blood Transfusion Reaction No Anesthesia Review Requested No alcohol intake former Smoking Status Never smoker Substance Use Type does not use Pain Present Pain Reported Musculoskeletal Symptoms Back Pain History of Falling (Recent or History of No ) Patient is completely paralyzed or No completely immobile Mental Status Oriented to own ability Is patient on oxygen? No Does patient have GAMBLE/SOB No Hx Sleep Apnea No Currently Taking a Beta [place] No Can You Climb a Flight of Stairs Without Yes SOB Hx Chest Pain No Hx SOB No Hx Syncope or Dizziness No Anti-Coagulant Therapy No Has a Nonprofit Fundraiser No Cardiac Testing No Hx Pacemaker/ICD No Pacemaker Rep Required? No Cardiac Clearance Received Not Applicable Diet Type At Home Regular dysphagia No Urinary Catheter Present No Hx Urinary Self Catheterization No Diabetes No Patient No Lactating No Hx Drug Resistant Organism No Presence of External or Internal Medical No Devices Have you had any close contact with No someone diagnosed with COVID-19? Marital Status Lives With spouse,family,children Prior Living Arrangements House Number of Floors (Floors) Two Floors Support System Child/Children,Spouse Does the Patient Have Assistance After Yes Surgery Patient Discharge Plan Description Return Home Comment Pt advised 1-2 night length of stay per surgeon Feels Safe in Current Environment Yes Been Physically Hurt or Threatened By a No Person in Current Environment Do you have thoughts of harming yourself None or others? Are you currently considering suicide? No Do you have a plan to hurt yourself or No Plan others? Do You Have Any Spiritual Beliefs That No May Affect Your HC Choices? Do You Have Any Cultural Practices That No May Affect Your HC Choices? Comment Jean Who Can We Speak to About Patient's Care Family, friends Identifying Code for Release of Patient Declines to issue Information Health Care Proxy/Next of Kin Tobin () Health Care Proxy Emergency Contact Name Tobin () Emergency Contact Advance Directives? No Power of Hot Mill Roller Name Tobin () Power of Hot Mill Roller PAC Instructions Durable medical equipment, Medications to take/avoid, Nasal antibiotic,No ETOH/ petroleum product on skin DOS, NPO,Pre-surgical wash,Sturdy shoes/comfortable clothes,Do not bring valuables and remove jewelry
--- NOTE | 2019-12-25 15:30 | OT.IP.EVAL ---
Current Diagnoses Spondylolisthesis, lumbosacral region (12/25/19) Spinal stenosis, lumbar region without neurogenic claudication (12/25/19) Radiculopathy, lumbar region (12/25/19) Surgery Performed Operation Date: 12/24/19 11:45 Actual Procedures p L5-S1 TLIF - Angela Goetz MD Past Medical History (Last Updated 12/17/19 @ 14:15 by Kelly Gallego, RN) Arthritis (Acute) Bitten by raccoon, initial encounter (Inactive) Hematoma of arm (Inactive) History of stroke (Inactive) Hypothyroidism (Acute) Osteoarthritis of lumbar spine (Inactive) Radial head fracture, closed (Inactive) Sciatica (Acute) Surgical History (Last Updated 12/17/19 @ 14:15 by Kelly Gallego, RN) History of back surgery (Acute 2015) History of (Acute) History of removal of ovarian cyst (Acute) Hx of appendectomy (Acute) Hx of dilation and curettage (Acute 1993) Hx of total hysterectomy (Acute 2009) Occupational Therapy Inpatient Evaluation/Re-Eval M1 PT/OT-IP Prior Functional Status Start: 12/25/19 15:00 Freq: NEEDED Status: Active Protocol: Document 12/25/19 15:00 [facility] (Rec: 12/25/19 15:30 [facility] [id number]) Medical Review Prior Functional Status Medical History Reviewed Yes Communication able to make needs known Mobility and Gait pt stated that she is independent with all mobilities and ambulation without AD Activities of Daily Living and IADL's Pt states independent with all Adl and IADl needs and 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 Social History Household Members spouse,family,children Living Arrangements House Number of Floors (Floors) Two Floors Number of Stairs To Enter/Railing? 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 [place] M2 OT-IP Current Condition Start: 12/25/19 15:00 Freq: Status: Active Protocol: Document 12/25/19 15:00 [facility] (Rec: 12/25/19 15:30 [facility] [id number]) Occupational Therapy Current Condition Current Condition Evaluation Date 12/25/19 Treatment Diagnosis S/P L5-S1 fusion/lami Diagnosis Onset Date 12/24/19 Post Operative Precautions Lumbar Precautions Log Roll,No Twisting,Limit Bending,Lifting Restriction of 10 lbs,Gait Belt above Incisional Area M3 OT- IP Subjective and Pain Start: 12/25/19 15:00 Freq: Status: Active Protocol: Document 12/25/19 15:00 [facility] (Rec: 12/25/19 15:30 [facility] [id number]) OT- Subjective Occupational Therapy Visit Type Type Initial Evaluation Visit Start Time 14:10 Visit Stop Time 14:43 Total Visit Minutes 33 Occupational Therapy Visit Comments Patient Comments Pt agreed to get up for OT eval. Patient/Caregiver Goals To go home. OT Pain Assessment Pain When Pain Assessed At Rest Pain Present Pain Present Denied Pain M4 OT- IP ADL's Start: 12/25/19 15:00 Freq: Status: Active Protocol: Document 12/25/19 15:00 [facility] (Rec: 12/25/19 15:30 [facility] [id number]) OT IHM-Xxys-Arsaedf Comments OT Self-Feeding Comments Not at meal time. OT ADL-Grooming General Evaluation Grooming Ability Standby Assistance Areas Needing Assistance Retrieving/Set-up of Grooming Items Comments OT Grooming Comments SBA while standing with FWW in front of the sink. OT ADL-Oral Care General Eval Oral Care Ability Standby Assistance Comments Oral Care Comments Initial vc to spit into a cup to best follow her back precautions. OT ADL-Dressing General Eval Lower Body Dressing Ability Maximum Assistance Areas Needing Assistance Socks Comments OT Dressing Comments Able to educate pt use of sock aid and wax ball knock out worker to increase independence and ease for LB dressing needs. Pt able to show good follow through for back precautions needs. OT ADL-Toileting Comments OT Toileting Comments Pt already used the bathroom earlier. Therefore had pt practice to to see if able to wipe appropriately after a bowel movement. Pt not able to reach and will need assist for completeness or to obtain a toilet paper aid. OT ADL-Bathing Comments OT Bathing Comments Pt states to try to shower tomorrow and looking to get a shower chair. M5 OT- IP IADL's Start: 12/25/19 15:00 Freq: Status: Active Protocol: Document 12/25/19 15:00 [facility] (Rec: 12/25/19 15:30 [facility] [id number]) OT-Instrumental Activities of Daily Living Home Safety Awareness Awareness of Need for Assistance at Home Good Awareness Ability to Problem Solve Emergency Able to Problem Solve Situations Medication Management Medication Management No Deficits Identified Money Management Money Management No Deficits Identified Meal Preparation Meal Preparation Comments Pt's and kids to assist at home. Oracle Adf Consultant Oracle Adf Consultant Comments Pt's and kids to assist at home. M6 OT- IP Functional Cognition Start: 12/25/19 15:00 Freq: Status: Active Protocol: Document 12/25/19 15:00 [facility] (Rec: 12/25/19 15:30 [facility] [id number]) Cognitive Factors Limiting Selfcare Function Cognitive Ability Level of Alertness Alert Patient Orientation Name,Age,Birthday,Month,Date, Year,Day of Week,Place, Situation Attention Span Ability Capable of Focused Attention, Capable of Sustained Attention Ability to Follow Commands Able to Follow Multi-Step Commands Memory Description No Deficits Noted Safety Awareness No Deficits Noted Cognitive Comments Cognitive Assessment Comments Pt able to follow commands for ADl's and LB dressing use. Pt appears at baseline for cognition. OT- Vision and Hearing OT- Hearing Assessment OT- Hearing Assessment WFL OT- Vision Assessment Visual Acuity WFL M7 OT- IP Mobility and Balance Start: 12/25/19 15:00 Freq: Status: Active Protocol: Document 12/25/19 15:00 [facility] (Rec: 12/25/19 15:30 [facility] [id number]) OT- Bed Mobility Assessment Rolling Type of Rolling Roll to Left Level of Assistance Contact Guard Assistance Supine to Sit Supine to Sit Assist Contact Guard Assistance Sit to Supine Sit to Supine Assist Standby Assistance OT-Transfer Assessment Sit to and From Stand Sit to and from Stand Standby Assistance Transfers Transfer Ability Standby Assistance Technique Transfer Destination Bed,Toilet Transfer Technique Stand Step Pivot Devices Transfer Assistive Devices Gait Belt,Front Wheeled Walker Comments Mobility Comments Pt CGA to stand with FWW and SBA while walking in the room. OT- Balance Assessment Sitting Balance and Reactions Static Sitting Balance Ability Normal Dynamic Sitting Balance Ability Good Standing Balance and Reactions Static Standing Balance Ability Good M8 OT- IP Objective Assessments Start: 12/25/19 15:00 Freq: Status: Active Protocol: Document 12/25/19 15:00 [facility] (Rec: 12/25/19 15:30 [facility] [id number]) OT Gross Range of Motion Upper Extremity Range of Motion Assessment Within Functional Limits OT-Muscle Tone Assessment Muscle Tone WNL Yes M9 OT- IP Assessment and Plan Start: 12/25/19 15:00 Freq: Status: Active Protocol: Document 12/25/19 15:00 [facility] (Rec: 12/25/19 15:30 [facility] [id number]) OT Summary Assessment and Plan Potential Rehabilitation Potential Excellent Analytic Complexity at Evaluation Low Summary OT Impairments Pain,Functional Mobility, Grooming,Dressing,Toileting, Bathing Progress Towards Goals Progressing Toward Goals Assessment Summary Pt low complexity and main barriers are steps, pain and not able to reach to do her pericare after bowel movement at this time due to her back precautions. Pt has a very supportive family to be able to assist pt at home for all needs. Pt looking to go home tomorrow. Goals Grooming Goal Independent Dressing Goal Independent Toileting Goal Independent Bathing Goal Independent Toilet Transfer Goal Independent Shower Transfer Goal Independent Patient/Caregiver Education Goal Demonstrate Post-Op Precautions,Caregiver Independent Assisting Patient Days to Meet Goals 2 Frequency of Treatment Frequency Of Treatment Once a Day Treatment Plan OT Treatment Plan ADL Training,Functional Mobility,Patient/Family Education,Discharge Planning Other Treatment Recommendations and Next shower Treatment Focus Discharge Recommendations OT Discharge Recommendations Home with Assistance Home Equipment Needs shower chair , toilet paper aid Transportation Needs at Discharge Private Vehicle
[2019-12-25 15:53] VITALS: BP 120/70; PULSE 85; RESP 18; TEMP 37; O2SAT 95
--- NOTE | 2019-12-25 17:38 | PC.NURSE ---
Addendum entered by Genesis Colón R.N. 12/25/19 22:50: Med several times for discomfort w/minimal relief. Pt in tears at this time Med w/ Dilaudid IVP Will assess. Call light w/in reach, bed alarm on for pt safety. Continue w/plan of care. Addendum entered by Genesis Colón R.N. 12/25/19 19:03: Med at 1845 for discomfort. Will assess Original Note: Pt med @ 1545 w/po Dilaudid w/good relief, pt allowed to sleep. Lungs clear, SpO2 98% RA Dsg to surgical back CDI. Stable post op course. Call light w/in reach, pt calls appropriately for needs.
[2019-12-25 20:00] VITALS: BP 160/90; PULSE 76; RESP 17; TEMP 37.3; O2SAT 94
[2019-12-25] MEDS: carisoprodoL 350 MG TABLET PO (21:28)
[2019-12-25] MEDS: SENNOSIDES 8.6 MG TABLET 17.2 MG PO (21:28)
[2019-12-26 00:30] VITALS: BP 156/77; PULSE 86; RESP 16; TEMP 37.1; O2SAT 95
[2019-12-26] MEDS: HYDROMORPHONE 0.5 MG INJ IV (00:39)
[2019-12-26] MEDS: diazePAM 5 MG TABLET PO ×3 (00:39→13:22)
[2019-12-26] MEDS: HYDROMORPHONE 4 MG TABLET PO ×4 (01:32→12:28)
[2019-12-26] MEDS: ACETAMINOPHEN 325 MG TABLET 650 MG PO (02:21)
[2019-12-26] MEDS: DEXAMETHASONE 4 MG/ML VIAL IV ×3 (03:10→13:21)
--- NOTE | 2019-12-26 03:21 | PC.NURSE ---
Patient cont. to C/O pain after medicated with 0.5 IVP Dilaudid, 5 mg. of Valium Po, 4 mg. of PO Dilaudid & 650 mg. of PO Tylenol. Pain level constant @ 7-8/10 even after all the pain meds. MD notified order received Decadron 4 mg. every 6 hrs. x4 doses. Order implemented, will cont. POC & monitor.
[2019-12-26 04:25] VITALS: BP 150/80; PULSE 91; RESP 16; TEMP 37.6; O2SAT 93
--- NOTE | 2019-12-26 06:59 | PC.NURSE ---
Pt. reported the Decadron helped my pain level is down since to 6 since surgery. Resting in bed now & trying to sleep. C/O muscles spams to her lower back. Medicated with 5 mg. of Valium PO, will report to day RN.
[2019-12-26 08:51] VITALS: BP 147/79; PULSE 98; TEMP 36; O2SAT 95
[2019-12-26] MEDS: SERTRALINE 50 MG TABLET 100 MG PO (09:13)
[2019-12-26] MEDS: DOCUSATE 100 MG CAPSULE PO (09:13)
[2019-12-26] MEDS: SODIUM CHLORIDE 0.9% FLUSH 10 ML IV (09:14)
--- NOTE | 2019-12-26 09:53 | PM.DS.1 ---
History of Present Illness History of Present Illness Date Patient Seen: 12/26/19 Time Patient Seen: 09:54 Chief complaint: Translaminar Interbody Fusion/Laminotomy *OPB* Narrative: Patient was having severe pain yesterday. Patient notes moderate pain today. No fever chills. No nausea vomiting. Patient does have assistance at home. Discharge Providers Provider Date of admission: 12/25/19 14:45 Discharge Date: 12/26/19 Primary care physician: FRANDY Chang Consults: 12/24/19 16:32 Consult to Occupational Therapy Evaluate & Treat Comment: Physician Instructions: Evaluate and treat Consult to Physical Therapy Evaluate & Treat Comment: Physician Instructions: Evaluate and Treat Discharge provider: Matias Snow PA-C Summary Hospital Course Discharge Diagnosis: 1. L5-S1 spondylolisthesis 2. L5-S1 spondylosis with radiculopathy Hospital Course: 1. L5-S1 Postero-lateral and posterior interbody fusion 2. L5-S1 interbody cage placement. 3. L5-S1 decompressive laminectomy with bilateral facetecomies 4. L5-S1 Posterior non-segmental instrumentation 5. [place] of bone marrow from iliac crest 6. Utilization of microsurgical technique and operating microscope Same procedure as scheduled: Yes Indications: Patient has been having chronic back pain and worsening lumbar radiculopathy. Patient failed multiple conservative management with worsening pain weakness and numbness in her lower extremity. Patient has been having difficulty performing activity of daily living. After discussing risks benefits of treatment options, patient elected proceed with surgery. Surgeon: Angela Goetz Chemistry Lab Instructor: Jessi Donald'Brien Click Yes if Unassisted: No Anesthesia Type: General Operative Notes Closure Type: primary Specimen(s): none sent Prosthetic devices, grafts, tissues, transplants, or devices: Globus revolve screws, Rise cage Estimated Blood Loss (mL): 50 Blood products transfused: none Patient progressing as expected. She had poor pain control yesterday. Pain control is improved today. Patient typically takes [place] and/or tramadol as well as Soma home. Transition from oxycodone to oral Dilaudid overnight. Patient was able ambulate with physical therapy. Pain control is improved. She does have assistance at home. Discharge home today after physical therapy in stable condition. Exam Vital Signs (past 8 hours): - 12/26/19 04:25 Temperature 99.6 F Pulse Rate 91 H Respiratory Rate 16 Blood Pressure 150/80 H Pulse Oximetry 93 Oxygen Delivery Method Room Air Oxygen Flow Rate 0 Narrative Exam Narrative: Pleasant 54-year-old female resting comfortably in bed in no apparent distress. Lumbar dressing is clean, dry and intact. Motor functions intact to the bilateral lower extremities. Sensation grossly intact to light touch bilateral lower extremities. Both legs are warm and dry. Discharge Assessment & Plan Assessment and Plan Assessment: Patient progressing as expected. Discharge home in stable condition. Discharge Plan Discharge Plan Patient Disposition: Home Discharge orders & Medications Prescriptions: New hydromorphone 2 mg Tablet 2 mg PO Q3H PRN (Reason: Pain, Severe (7-10)) Qty: 60 RF: 0 acetaminophen 325 mg Tablet 650 mg PO Q6HR PRN (Reason: Pain, Mild (1-3)) Qty: 60 RF: 0 hydroxyzine pamoate 25 mg Capsule 25 mg PO Q4HR PRN (Reason: Nausea And Vomiting) Qty: 60 RF: 0 Continued carisoprodol 350 MG tablet 350 mg PO TID-QID Qty: 0 RF: 0 Nature-Throid 97.5 mg Tablet 97.5 mg PO DAILY Qty: 0 RF: 0 sertraline 100 mg Tablet 100 mg PO DAILY RF: 0 tizanidine 4 mg Capsule 4 mg PO BEDTIME PRN (Reason: Muscle Spasm) RF: 0 buprenorphine [Butrans] 5 mcg/hour Patch Weekly 1 patch TRANSDERMAL Q7D RF: 0 Discontinued hydrocodone-acetaminophen [[place]] 5-325 mg tablet 1 tab PO Q4-6H PRN (Reason: pain) Qty: 10 RF: 0 tramadol 50 MG tablet 50 mg PO Q6HP PRN (Reason: Pain) RF: 0 Follow up/Referrals: Margi Burns ARNP [Primary Care Provider] - Angela Goetz MD [Physician] - Diet/Activity/Treatments Diet: Diet as Tolerated Activity: WBAT, Limit bending, lifting, twisting Cold/Heat Therapy: ice to low back as needed Skin/Wound/Dressing Care Report to your healthcare provider any signs of infection, such as:: chills, fever, night sweats, increased pain, unusual drainage and unusual redness Dressing: keep clean and dry Visit Report/Discharge Packet Instructions: How to Prevent Falls, DI for Postoperative Pain, DI for Prescription Opioid Use, Hydromorphone, DI for Transforaminal Lumbar Interbody Fusion Stand Alone Forms: Surgery Discharge Discharge Data Primary Care Provider: Margi Burns Attending Provider: Angela Goetz Admit Date/Time: 12/25/19 14:45
--- NOTE | 2019-12-26 10:00 | OT.IP.TRT ---
Current Diagnoses Spondylolisthesis, lumbosacral region (12/25/19) Spinal stenosis, lumbar region without neurogenic claudication (12/25/19) Radiculopathy, lumbar region (12/25/19) Surgery Performed Operation Date: 12/24/19 11:45 Actual Procedures p L5-S1 TLIF - Angela Goetz MD Occupational Therapy Treatment Note M2 OT-IP Current Condition Start: 12/25/19 15:00 Freq: Status: Active Protocol: Document 12/25/19 15:00 [facility] (Rec: 12/25/19 15:30 [facility] [id number]) Occupational Therapy Current Condition Current Condition Evaluation Date 12/25/19 Treatment Diagnosis S/P L5-S1 fusion/lami Diagnosis Onset Date 12/24/19 Post Operative Precautions Lumbar Precautions Log Roll,No Twisting,Limit Bending,Lifting Restriction of 10 lbs,Gait Belt above Incisional Area M3 OT- IP Subjective and Pain Start: 12/25/19 15:00 Freq: Status: Active Protocol: Document 12/26/19 10:17 [facility] (Rec: 12/26/19 10:21 [facility] [id number]) OT- Subjective Occupational Therapy Visit Type Type Treatment Note Visit Start Time 10:00 Visit Stop Time 10:08 Total Visit Minutes 8 Occupational Therapy Visit Comments Patient Comments Pt not feeling well and not wanting to shower at this time , noted increased BP by nursing. Patient/Caregiver Goals To go home. OT Pain Assessment Pain When Pain Assessed At Rest Pain Present Pain Present Pain Reported Location back Intensity 8 M5 OT- IP IADL's Start: 12/25/19 15:00 Freq: Status: Active Protocol: Document 12/25/19 15:00 [facility] (Rec: 12/25/19 15:30 [facility] [id number]) OT-Instrumental Activities of Daily Living Home Safety Awareness Awareness of Need for Assistance at Home Good Awareness Ability to Problem Solve Emergency Able to Problem Solve Situations Medication Management Medication Management No Deficits Identified Money Management Money Management No Deficits Identified Meal Preparation Meal Preparation Comments Pt's and kids to assist at home. School Psychometrist School Psychometrist Comments Pt's and kids to assist at home. M7 OT- IP Mobility and Balance Start: 12/25/19 15:00 Freq: Status: Active Protocol: Document 12/26/19 10:17 [facility] (Rec: 12/26/19 10:21 [facility] [id number]) OT- Bed Mobility Assessment Sit to Supine Sit to Supine Assist Minimal Assistance OT-Transfer Assessment Sit to and From Stand Sit to and from Stand Contact Guard Assistance Transfers Transfer Ability Contact Guard Assistance Technique Transfer Destination Bed,Chair Devices Transfer Assistive Devices Gait Belt,Front Wheeled Walker Comments Mobility Comments CGA A with FWW and good safety . OT- Balance Assessment Sitting Balance and Reactions Static Sitting Balance Ability Normal Dynamic Sitting Balance Ability Good Standing Balance and Reactions Static Standing Balance Ability Fair M8 OT- IP Objective Assessments Start: 12/25/19 15:00 Freq: Status: Active Protocol: Document 12/25/19 15:00 [facility] (Rec: 12/25/19 15:30 [facility] [id number]) OT Gross Range of Motion Upper Extremity Range of Motion Assessment Within Functional Limits OT-Muscle Tone Assessment Muscle Tone WNL Yes M9 OT- IP Assessment and Plan Start: 12/25/19 15:00 Freq: Status: Active Protocol: Document 12/26/19 10:17 [facility] (Rec: 12/26/19 10:21 [facility] [id number]) OT Summary Assessment and Plan Potential Rehabilitation Potential Good Analytic Complexity at Evaluation Low Summary OT Impairments Pain,Functional Mobility, Grooming,Dressing,Toileting, Bathing Progress Towards Goals Progressing Toward Goals,Slow Progress due to Medical Issues Assessment Summary Pt not feeling well with increased BP per nursing. Pt not wanting to shower at this time. Pt when medically stable to go home with family to assist. Goals Grooming Goal Independent Dressing Goal Independent Toileting Goal Independent Bathing Goal Independent Toilet Transfer Goal Independent Shower Transfer Goal Independent Patient/Caregiver Education Goal Demonstrate Post-Op Precautions,Caregiver Independent Assisting Patient Days to Meet Goals 1 Frequency of Treatment Frequency Of Treatment Once a Day Treatment Plan OT Treatment Plan ADL Training,Functional Mobility,Patient/Family Education,Discharge Planning Other Treatment Recommendations and Next shower Treatment Focus Discharge Recommendations OT Discharge Recommendations Home with Assistance Home Equipment Needs shower chair , toilet paper aid Transportation Needs at Discharge Private Vehicle
--- NOTE | 2019-12-26 11:49 | PT.IPTN ---
Current Diagnoses Spondylolisthesis, lumbosacral region (12/25/19) Spinal stenosis, lumbar region without neurogenic claudication (12/25/19) Radiculopathy, lumbar region (12/25/19) Surgery Performed Operation Date: 12/24/19 11:45 Actual Procedures p L5-S1 TLIF - Angela Goetz MD Physical Therapy Treatment Note M2 PT-IP Current Condition Start: 12/25/19 12:14 Freq: NEEDED Status: Active Protocol: Document 12/25/19 09:25 AB (Rec: 12/25/19 12:[address] [id number]) Physical Therapy Current Condition Current Condition Evaluation Date 12/25/19 Treatment Diagnosis s/p L5S1 fusion/lami; difficulty in walking Onset Date 12/24/19 M3 PT-IP Subjective Start: 12/25/19 12:14 Freq: NEEDED Status: Active Protocol: Document 12/26/19 11:25 [place] (Rec: 12/26/19 14:28 [place] [id number]) Subjective Physical Therapy Visit Type Type Treatment Note Visit Start Time 11:25 Visit Stop Time 11:49 Total Visit Minutes 24 Number of SLAB MILLER OPERATOR Visits 2 Physical Therapy Visit Comments Patient Comments pt is agreeable to do PT Therapy Pain Assessment Pain When Pain Assessed During Mobility Pain Present Pain Present Pain Reported Location back Intensity 6 Scale Used Numeric (0 - 10) Description Aching,Tightness Pain Behaviors Guarding,Wincing Pain Management Techniques Apply Cold,Modification of Treatment,Re-positioning, Timing of Activity with Medications M4 PT-IP Mobility and Gait Start: 12/25/19 12:14 Freq: NEEDED Status: Active Protocol: Document 12/26/19 11:25 [place] (Rec: 12/26/19 14:28 [place] [id number]) PT-Bed Mobility Assessment Rolling Type of Rolling Log Rolling,Roll to Left Level of Assist Standby Assistance,1 Person Assistance Supine to Sit Supine to Sit Standby Assistance,1 Person Assistance Sit to Supine Sit to Supine Standby Assistance,1 Person Assistance Scooting Scooting to Edge of Bed Standby Assistance PT-Transfer Assessment Sit to and From Stand Sit to and from Stand Standby Assistance,1 Person Assistance,Use of Upper Extremities Equipment Transfer Assistive Device Gait Belt,Front Wheeled Walker Orthotic/Prosthetic Devices or Brace: No Transfers Transfer Destination Bed Transfer Technique pt ambulated w/ FWW Transfer Ability Level of Assist Standby Assistance,1 Person Assistance,Use of Upper Extremities Comments Mobility Comments Pt in bed upon arrival from therapy . SBA for logroll to L and sidelying<>sit, SBA for scooting to EOB. Pt SBA for sit<>stand w/ FWW w/ cues for hand placement. Pt then ambulated ~[address] w / FWW SBA. Pt demonstrated safe use of FWW w/o need for cues. Pt returned to room and performed logroll back into bed SBA. Pt states she feels ready to go home and does not want caregiver training. Gait Assessment Gait Gait Assistance Required: Standby Assistance,1 Person Assist Distance (Feet) 100 Able to Maintain Weight Bearing Status Yes During Gait Assistive Devices Assistive Device Gait Belt,Front Wheeled Walker Orthotic/Prosthetic Devices or Brace: No Gait Deviations General Gait Pattern Antalgic,Decreased Stride Length,Decreased Feet Clearance Factors Limiting Gait Function Factors Limiting Gait Function Decreased Activity Tolerance, Decreased Strength,Limited Range of Motion,Pain,Poor Balance Comments Gait Comments Pt ambulated ~100 ft w/ FWW and SBA. Stair Climbing Assessment Comments Stair Climbing Comments not assessed, pt states she will not have to complete stairs at home. PT-Balance Assessment Sitting Balance and Reactions Static Sitting Balance Ability Good Dynamic Sitting Balance Ability Good Standing Balance and Reactions Static Standing Balance Ability Good Dynamic Standing Balance Ability Good Device Used FWW M5 PT-IP Objective Assessments Start: 12/25/19 12:14 Freq: NEEDED Status: Active Protocol: Document 12/25/19 09:25 AB (Rec: 12/25/19 12:26 AB [id number]) Orientation Orientation/Cognition Level of Alertness Alert Orientation Name,Age,Birthday,Month,Date, Year,Day of Week,Place, Situation Language Function Ability No Deficits Noted Safety Awareness Understands Safety Issues Memory Description No Deficits Noted Gross Range of Motion Lower Extremity ROM Assessment Within Functional Limits Strength Lower Extremity Strength Assessment Bilaterally Impaired Comments Strength Comments RLE 3+/5 LLE: 4-/5 Coordination Assessment Gross Coordination Gross Coordination WNL Sensation Assessment Sensation Gross Sensation WNL Muscle Tone Muscle Tone WNL Yes M6 PT-IP Treatment Start: 12/25/19 12:14 Freq: NEEDED Status: Active Protocol: Document 12/26/19 11:25 [place] (Rec: 12/26/19 14:28 [place] [id number]) Physical Therapy Treatment Education Education Provided Precautions,Weight Bearing Status,Post-Op Packet,Safety Other Treatments Other Treatment Performed reveiwed precautions, spoke w/ pts who confirmed he will purchase a FWW prior to pt returning home. M7 PT-IP Assessment and Plan Start: 12/25/19 12:14 Freq: NEEDED Status: Active Protocol: Document 12/26/19 11:25 [place] (Rec: 12/26/19 14:28 KS [id number]) PT Summary Assessment and Plan Potential Rehabilitation Potential Good Status of Condition at Evaluation Evolving Summary Impairments Pain,ROM,Strength,Balance,Tone ,Cognition,Bed Mobility, Transfers,Gait,Activity Tolerance Progress Towards Goals Progressing Toward Goals Assessment Summary Pt SBA for all bed mobility, transfers, and ambulation. Pt has good awareness of spinal precautions and demonstrated safe use of FWW during ~100 ft ambulation. Pt stated she will not have to complete steps at home and confirmed he will purchase FWW for pt home use. Pt stated she feels physically ready to go home and does not want caregiver training because she is able to do everything on her own, however stated that her and children can help w/ whatever she needs. Goals Bed Mobility Goal Independent Transfer Goal Independent,Front Wheeled Walker,Four Wheeled Walker Gait Goal Independent,Front Wheel Walker ,Four Wheel Walker Gait Distance 250 Days to Meet Goals 5 Frequency of Treatment Frequency Of Treatment Twice a Day Treatment Plan Physical Therapy Treatment Plan Bed Mobility Training,Transfer Training,Gait Training, Therapeutic Exercise,Balance Retraining,Post Op Education, Discharge Planning,Hot or Cold Pack,Neuromuscular Re-ed, Coordination Retraining,Manual Therapy Recommendations To Nursing Amount of Assist Needed 1 Person Assist Discharge Recommendations PT Discharge Recommendations Home with Assistance Transportation Needs at Discharge Private Vehicle
--- NOTE | 2019-12-26 12:09 | PC.NURSE ---
Patient is all set for discharge at 1400. She will receive pain meds soon and will go over her paperwork and change her dressing to water proof one. She did become nauseous earlier but that has resolved.
== END 2019-12-26 14:30 | disposition home or self-care (01) ==
LOC: OR 15:06 → AC 15:06
PROVIDERS: Admitting Provider Orthopaedic Surgery Orthopaedic Surgery of the Spine; Family Provider Student in an Organized Health Care Education/Training Program; PCP Nurse Practitioner; Referring Provider Orthopaedic Surgery Orthopaedic Surgery of the Spine; Visit Provider Orthopaedic Surgery Orthopaedic Surgery of the Spine
PROC: (CPT 22633; principal; 2019-12-24 11:45)
DX: M43.17 Spondylolisthesis, lumbosacral region (principal); M47.27 Other spondylosis with radiculopathy, lumbosacral region; M48.061 Spinal stenosis, lumbar region without neurogenic claudication; M53.3 Sacrococcygeal disorders, not elsewhere classified; M51.36 Other intervertebral disc degeneration, lumbar region
CPT/HCPCS: 22633; 22853; 22840; 20939; 63047; 72100; 76000; 97116; 97162; 97165; 97530; 97535; C1776; G0378; C9290; J0330; J0690; J1100; J1170; J2250; J2405; J2704; J3010

== ENCOUNTER → 2022-01-02 14:07 | Outpatient (CLI) | payer OTHER, SELFPAY ==
[2019-12-24 16:46] VITALS: BMI 28.5
== END ==
PROVIDERS: Family Provider Student in an Organized Health Care Education/Training Program; PCP Nurse Practitioner; Visit Provider Student in an Organized Health Care Education/Training Program
DX: R30.0 Dysuria (principal)
CPT/HCPCS: 87086; 87210

== ENCOUNTER 2022-01-19 05:32 | Inpatient (IN) | payer OTHER, SELFPAY ==
[2019-12-24 16:46] VITALS: BMI 28.5
[2022-01-19] VITALS (44 sets, daily range): BP systolic 152–229; BP diastolic 75–114; PULSE 75–105; RESP 14–35; TEMP 36.6–37.8; O2SAT 94–100; BMI 28.5; BMI 29.5
--- NOTE | 2022-01-19 05:59 | DI.CT.S_ITS ---
PROCEDURE: CT ABDOMEN PELVIS W CON INDICATIONS: iv contrast only/abd pain TECHNIQUE: After the administration of IV contrast, axial sections were acquired from the lung bases to the pubic symphysis. Coronal and sagittal reformats were performed. For radiation dose reduction, the following was used: automated exposure control, adjustment of mA and/or kV according to patient size. COMPARISON: [facility] MR, MR LUMBAR SPINE WITHOUT CONTRAST, 06/29/2021, 10:34. [facility], CT, CT ABDOMEN PELVIS W CON, 08/15/2019, 15:02. FINDINGS: Image quality: Excellent. Lung bases: Unremarkable. Small hiatal hernia. Heart: No significant findings. ABDOMEN: Liver: Normal size. Mild hepatic steatosis. Gallbladder: Unremarkable. Biliary ducts: Unremarkable. Pancreas: Unremarkable. Spleen: Unremarkable. Adrenal Glands: Unremarkable. Kidneys and Ureters: Unremarkable. Stomach and Bowel: Stomach is nondistended and appears grossly normal. There is appearance of mild thickening of the proximal horizontal segment of duodenum. Small bowel loops and colon are normal in caliber. Peritoneum: There is a small amount of free fluid. No free air. Ventral Wall: No hernia. Abdominal Nodes: No retroperitoneal or mesenteric adenopathy by size criteria. Vessels: Aorta and inferior vena cava are normal in size. PELVIS: Pelvic Organs: Uterus is absent consistent with hysterectomy. Ovaries are not definitively visualized. There is no adnexal mass. There is a small amount of free fluid in pelvis. Bladder: Unremarkable. Pelvic Nodes: No enlarged lymph nodes. Miscellaneous: No inguinal hernias are seen. Bones: Degenerative and postsurgical changes are noted in lumbar spine sacrum. IMPRESSION: 1. Appearance of mild thickening of the duodenum involving the proximal horizontal segment. In absence of oral contrast, the finding could be caused by artifact from inadequate distention or peristalsis. Differential diagnoses are duodenitis and peptic ulcer disease. Recommend clinical correlation. 2. A small amount of free fluid in pelvis. This finding is nonspecific. No significant discrepancy with the overnight cashier radiology preliminary report. Dictated by: Belinda Kennedy M.D. on 01/19/2022 at 8:35 Approved by: Belinda Kennedy M.D. on 01/19/2022 at 8:43
--- NOTE | 2022-01-19 06:00 | ED.NAVMDI ---
HPI - Nausea/Vomiting/Diarrhea <Bunny Malik MD - Last Filed: 01/28/22 08:32> General Chief complaint: Nausea/Vomiting/Diarrhea Stated complaint: N/V x1day Time Seen by Provider: 01/19/22 05:52 Source: patient Mode of arrival: EMS History of Present Illness HPI Narrative: Patient here with partner. Complains of periumbilical epigastric abdominal pain. Started last night with pain and vomiting. Has been continuous since last night. Does not radiate. No fever chills. No urinary complaints. History of appendectomy and hysterectomy in the past. Has a Butrans patch secondary to chronic pain from past back surgery. No recent illness. No fever chills Related Data Home Medications Medication Instructions Recorded Confirmed thyroid (pork) 97.5 mg tablet 97.5 mg PO DAILY #0 tabs 12/15/12 01/19/22 (Nature-Throid) buprenorphine 5 mcg/hour weekly 1 patch transdermal Q7D Chronic 12/17/19 01/19/22 transdermal patch (Butrans) pain sertraline 100 mg tablet 50 mg PO DAILY 12/17/19 01/19/22 tizanidine 4 mg capsule 4 mg PO BEDTIME PRN Muscle Spasm 12/17/19 01/19/22 Previous Rx's Medication Instructions Recorded acetaminophen 325 mg tablet 650 mg PO Q6HR PRN Pain, Mild 12/26/19 (1-3) #60 tabs hydromorphone 2 mg tablet 2 mg PO Q3H PRN Pain, Severe 12/26/19 (7-10) #60 tabs phenazopyridine 100 mg tablet 100 mg PO TID PRN pain 6 doses #6 01/02/22 (Pyridium) tabs aspirin 81 mg tablet,delayed 81 mg PO DAILY #30 tabs 01/22/22 release ondansetron 4 mg disintegrating 4 mg PO Q8H PRN nausea and 01/22/22 tablet vomiting #20 tabs Allergies Allergy/AdvReac Type Severity Reaction Status Date / Time erythromycin base AdvReac Severe Gastrointestinal Verified 01/19/22 07:39 [ERYTHROMYCIN BASE] Upset <Dimple Esquivel DO - Last Filed: 01/19/22 19:03> History of Present Illness HPI Narrative: Patient here with partner. Complains of periumbilical epigastric abdominal pain. Started last night with pain and vomiting. Has been continuous since last night. Does not radiate. No fever chills. No urinary complaints. History of appendectomy and hysterectomy in the past. Has a Butrans patch secondary to chronic pain from past back surgery. No recent illness. No fever chills Review of Systems <Bunny Malik MD - Last Filed: 01/28/22 08:32> Review of Systems Narrative: GENERAL: Denies chills, fatigue, malaise, fever, sweats. HEENT: Denies sinus pain, ear pain, sore throat RESPIRATORY: Denies dyspnea, cough CARDIOVASCULAR: Denies chest pain, palpitations GASTROINTESTINAL: Positive nausea, vomiting, abdominal pain : Denies dysuria, frequency, hematuria MUSCULOSKELETAL: denies muscle or bony pain SKIN: Denies rash, skin lesions NEUROLOGIC: Denies weakness, numbness ROS Unobtainable: All systems reviewed & are unremarkable except as noted in HPI and below Patient History <Bunny Malik MD - Last Filed: 01/28/22 08:32> Medical History Arthritis Bitten by angi, initial encounter Hematoma of arm History of stroke Hypothyroidism Osteoarthritis of lumbar spine Radial head fracture, closed Sciatica Surgical History History of back surgery (2015) History of History of removal of ovarian cyst Hx of appendectomy Hx of dilation and curettage (1993) Hx of total hysterectomy (2009) Social History household members: spouse, family and children Smoking Status: Never smoker alcohol intake: former Smoking Status: Never smoker alcohol intake frequency: 0-2 drinks per day Substance Use Type: does not use Exam <Bunny Malik MD - Last Filed: 01/28/22 08:32> Narrative Exam Narrative: GENERAL: in no distress, not toxic not dyspneic HEAD: Normocephalic. EYES: Pupils equal round No scleral icterus. ENT: Mucous membranes moist. NECK: Trachea midline. CARDIOVASCULAR: Regular rate and rhythm without murmurs RESPIRATORY: Clear to auscultation. Breath sounds equal bilaterally. No wheezes, rales, or rhonchi. GASTROINTESTINAL: Abdomen soft, reproducible epigastric periumbilical and right upper quadrant tenderness. No peritoneal signs. Bowel sounds are present. No CVA tenderness. EXTREMITIES: No gross deformities. BACK: No flank tenderness. NEURO: AOx4. SKIN: Warm and dry PSYCH: Not anxious, is cooperative Initial Vital Signs Initial Vital Signs: Vital Signs Temperature 97.8 F 01/19/22 05:38 Pulse Rate 89 01/19/22 05:38 Respiratory Rate 24 01/19/22 05:38 Blood Pressure 225/106 H 01/19/22 05:38 Pulse Oximetry 100 01/19/22 05:38 Oxygen Delivery Method 01/19/22 05:38 <Dimple Esquivel DO - Last Filed: 01/19/22 19:03> Initial Vital Signs Initial Vital Signs: Vital Signs Temperature 97.8 F 01/19/22 05:38 Pulse Rate 89 01/19/22 05:38 Respiratory Rate 24 01/19/22 05:38 Blood Pressure 225/106 H 01/19/22 05:38 Pulse Oximetry 100 01/19/22 05:38 Oxygen Delivery Method 01/19/22 05:38 Course <Bunny Malik MD - Last Filed: 01/28/22 08:32> Course Course Narrative: 7:00 a.m.. Sign out to Dr. Esquivel,, CT images/results are pending. Will need to reassess for nausea and pain control. Orders Ordered: Discontinued Medications Acetaminophen (Acetaminophen 325 Mg Tablet) 650 mg PO Q6H PRN PRN Reason: Fever/Mild Pain (1-3) Last Admin: 01/22/22 01:49 Dose: 650 mg Documented By: Admin: 01/20/22 06:52 Dose: 650 mg Documented By: CONRAD Aspirin (Aspirin 81 Mg Chew Tab) 324 mg PO NOW ONE Stop: 01/19/22 13:14 Last Admin: 01/19/22 13:37 Dose: 324 mg Documented By: MAYO Aspirin (Aspirin Ec 81 Mg Tablet) 81 mg PO DAILY [facility] Last Admin: 01/22/22 08:56 Dose: 81 mg Documented By: Admin: 01/21/22 09:36 Dose: 81 mg Documented By: Admin: 01/20/22 09:34 Dose: 81 mg Documented By: PRITI Hydromorphone HCl (Hydromorphone 1 Mg Inj) 1 mg IV NOW ONE Stop: 01/19/22 05:59 Last Admin: 01/19/22 06:04 Dose: 1 mg Documented By: NATI Hydromorphone HCl (Hydromorphone 0.5 Mg Inj) 0.5 mg IV Q4H PRN PRN Reason: Pain, Moderate (4-6) Last Admin: 01/21/22 06:13 Dose: 0.5 mg Documented By: Admin: 01/21/22 01:21 Dose: 0.5 mg Documented By: Admin: 01/20/22 21:47 Dose: 0.5 mg Documented By: Admin: 01/20/22 10:48 Dose: 0.5 mg Documented By: Admin: 01/20/22 01:07 Dose: 0.5 mg Documented By: Admin: 01/19/22 17:03 Dose: 0.5 mg Documented By: ANALISA Hydromorphone HCl (Hydromorphone 2 Mg Tablet) 2 mg PO Q3H PRN PRN Reason: Pain, Severe (7-10) Sodium Chloride (Normal Saline 0.9%) 1,000 mls @ 1,000 mls/hr IV BOLUS ONE Stop: 01/19/22 06:57 Last Infusion: 01/19/22 07:37 Dose: 0 mls/hr Documented By: Admin: 01/19/22 06:04 Dose: 1,000 mls/hr Documented By: NATI Sodium Chloride (Normal Saline 0.9%) 1,000 mls @ 1,000 mls/hr IV BOLUS ONE Stop: 01/19/22 09:05 Last Infusion: 01/19/22 09:45 Dose: 0 mls/hr Documented By: Admin: 01/19/22 08:15 Dose: 1,000 mls/hr Documented By: OLGA Piperacillin Sod/Tazobactam (Sod 4.5 gm/ Sodium Chloride) 100 mls @ 200 mls/hr IV NOW ONE Stop: 01/19/22 10:32 Last Infusion: 01/19/22 11:35 Dose: 0 mls/hr Documented By: Admin: 01/19/22 11:03 Dose: 200 mls/hr Documented By: OLGA Sodium Chloride (Normal Saline 0.9%) 1,000 mls @ 100 mls/hr IV CONT GINA Stop: 01/19/22 22:59 Last Admin: 01/19/22 18:16 Dose: 100 mls/hr Documented By: Infusion: 01/19/22 18:16 Dose: 0 mls/hr Documented By: Infusion: 01/19/22 14:15 Dose: 0 mls/hr Documented By: Admin: 01/19/22 11:28 Dose: 100 mls/hr Documented By: OLGA Magnesium Sulfate (Magnesium Sulfate) 4 gm in 100 mls @ 25 mls/hr IV NOW ONE Stop: 01/19/22 15:54 Last Infusion: 01/19/22 14:15 Dose: 0 mls/hr Documented By: AT Co-signed By: MAYO Admin: 01/19/22 12:17 Dose: 25 mls/hr Documented By: AT Co-signed By: EMILY Heparin Sodium/Dextrose (Heparin Drip) 25,000 unit in 500 mls @ 16.982 mls/hr IV CONT GINA; Protocol Last Admin: 01/20/22 22:53 Dose: 12 units/kg/hr, 16.982 mls/hr Documented By: Titration: 01/20/22 21:23 Dose: 12 units/kg/hr, 16.982 mls/hr Documented By: Admin: 01/19/22 15:56 Dose: 12 units/kg/hr, 16.982 mls/hr Documented By: ANALISA Piperacillin Sod/Tazobactam (Sod 3.375 gm/ Sodium Chloride) 100 mls @ 25 mls/hr IV Q8H [facility] Last Admin: 01/22/22 10:49 Dose: Not Given Documented By: Infusion: 01/22/22 06:15 Dose: 0 mls/hr Documented By: Admin: 01/22/22 01:48 Dose: 25 mls/hr Documented By: Infusion: 01/22/22 00:22 Dose: 0 mls/hr Documented By: Admin: 01/21/22 18:45 Dose: 25 mls/hr Documented By: Infusion: 01/21/22 15:28 Dose: 25 mls/hr Documented By: Admin: 01/21/22 11:28 Dose: 25 mls/hr Documented By: Infusion: 01/21/22 06:38 Dose: 25 mls/hr Documented By: Admin: 01/21/22 02:38 Dose: 25 mls/hr Documented By: Infusion: 01/20/22 21:40 Dose: 0 mls/hr Documented By: Admin: 01/20/22 17:34 Dose: 25 mls/hr Documented By: Infusion: 01/20/22 15:39 Dose: 0 mls/hr Documented By: Admin: 01/20/22 11:39 Dose: 25 mls/hr Documented By: Infusion: 01/20/22 06:43 Dose: 25 mls/hr Documented By: Admin: 01/20/22 02:43 Dose: 25 mls/hr Documented By: Infusion: 01/19/22 23:00 Dose: 0 mls/hr Documented By: Admin: 01/19/22 18:57 Dose: 25 mls/hr Documented By: ANALISA Sodium Chloride (Normal Saline 0.9%) 1,000 mls @ 100 mls/hr IV CONT GINA Stop: 01/22/22 07:00 Last Admin: 01/22/22 01:50 Dose: 100 mls/hr Documented By: Infusion: 01/22/22 01:09 Dose: 0 mls/hr Documented By: Admin: 01/21/22 15:09 Dose: 100 mls/hr Documented By: Infusion: 01/21/22 15:09 Dose: 100 mls/hr Documented By: Admin: 01/21/22 05:09 Dose: 100 mls/hr Documented By: Infusion: 01/21/22 04:43 Dose: 100 mls/hr Documented By: Admin: 01/20/22 18:43 Dose: 100 mls/hr Documented By: ANALISA Ketorolac Tromethamine (Ketorolac 30 Mg/Ml Vial) 30 mg IV NOW ONE Stop: 01/19/22 07:39 Last Admin: 01/19/22 07:55 Dose: 30 mg Documented By: OLGA Labetalol HCl (Labetalol 20 Mg/4 Ml Syringe) 10 mg IV NOW ONE Stop: 01/19/22 10:34 Last Admin: 01/19/22 11:02 Dose: 10 mg Documented By: OLGA Labetalol HCl (Labetalol 20 Mg/4 Ml Syringe) 10 mg IV Q5H PRN PRN Reason: SBP >180 or DBP >110 Last Admin: 01/19/22 12:14 Dose: 10 mg Documented By: VITOR Lorazepam (Lorazepam 2 Mg/Ml Inj) 0.5 mg IV NOW ONE Stop: 01/19/22 07:49 Last Admin: 01/19/22 07:55 Dose: 0.5 mg Documented By: OLGA Lorazepam (Lorazepam 2 Mg/Ml Inj) 0.5 mg IV Q4HR PRN PRN Reason: nausea and vomiting Last Admin: 01/22/22 01:51 Dose: 0.5 mg Documented By: Admin: 01/21/22 15:55 Dose: 0.5 mg Documented By: Admin: 01/21/22 00:15 Dose: 0.5 mg Documented By: Admin: 01/20/22 20:02 Dose: 0.5 mg Documented By: Admin: 01/20/22 15:00 Dose: 0.5 mg Documented By: ANALISA Melatonin (Melatonin 3 Mg Tablet) 6 mg PO BEDTIME PRN PRN Reason: Insomnia Last Admin: 01/22/22 01:51 Dose: 6 mg Documented By: Admin: 01/19/22 22:55 Dose: 6 mg Documented By: CONRAD Metoclopramide HCl (Metoclopramide 10 Mg/2 Ml Inj) 10 mg IV NOW ONE Stop: 01/19/22 06:57 Last Admin: 01/19/22 07:02 Dose: 10 mg Documented By: MEGHAN Metoprolol Tartrate (Metoprolol Ir 25 Mg Tablet) 25 mg PO NOW ONE Stop: 01/19/22 10:06 Last Admin: 01/19/22 10:45 Dose: Not Given Documented By: OLGA Naloxone HCl (Naloxone 0.4 Mg/Ml Vial) 0.2 mg IV Q2MIN PRN PRN Reason: Opiate Reversal Nitroglycerin (Nitroglycerin 0.4 Mg Sl Tab) 0.4 mg SL [id number] PRN PRN Reason: Chest Pain Last Admin: 01/19/22 13:41 Dose: 0.4 mg Documented By: MAYO Thyroid (Pork) [ Nature-Throid] 97.5 Mg Tablet 97.5 mg PO DAILY@0600 [facility] Last Admin: 01/22/22 06:14 Dose: Not Given Documented By: Admin: 01/21/22 05:11 Dose: Not Given Documented By: Admin: 01/20/22 06:16 Dose: Not Given Documented By: CONRAD Ondansetron HCl (Ondansetron 4 Mg/2 Ml Inj) 4 mg IV NOW ONE Stop: 01/19/22 05:59 Last Admin: 01/19/22 06:04 Dose: 4 mg Documented By: NATI Ondansetron HCl (Ondansetron 4 Mg/2 Ml Inj) 4 mg IV Q8HR PRN PRN Reason: Nausea And Vomiting Last Admin: 01/19/22 17:03 Dose: 4 mg Documented By: ANALISA Ondansetron HCl (Ondansetron 4 Mg/2 Ml Inj) 4 mg IV Q6HR [facility] Last Admin: 01/22/22 06:13 Dose: 4 mg Documented By: Admin: 01/22/22 00:23 Dose: 4 mg Documented By: Admin: 01/21/22 18:45 Dose: 4 mg Documented By: Admin: 01/21/22 12:40 Dose: 4 mg Documented By: Admin: 01/21/22 05:09 Dose: 4 mg Documented By: Admin: 01/20/22 22:57 Dose: 4 mg Documented By: Admin: 01/20/22 17:33 Dose: 4 mg Documented By: Admin: 01/20/22 12:58 Dose: 4 mg Documented By: ANALISA Polyethylene Glycol (Polyethylene Glycol 3350 17 Gm Powd.Pack) 17 gm PO DAILY PRN PRN Reason: Constipation Potassium Chloride (Potassium Chloride 20 Meq/15 Ml Udc) 40 meq PO NOW ONE Stop: 01/20/22 09:46 Last Admin: 01/20/22 11:37 Dose: Not Given Documented By: ANALISA Potassium Chloride (Potassium Chloride 20 Meq Tab) 40 meq PO Q6H [facility] Stop: 01/21/22 15:01 Last Admin: 01/21/22 19:20 Dose: Not Given Documented By: Admin: 01/21/22 10:50 Dose: 40 meq Documented By: HALLIE Potassium Chloride (Potassium Chloride 20 Meq Tab) 40 meq PO Q6H [facility] Stop: 01/21/22 17:01 Last Admin: 01/21/22 22:40 Dose: Not Given Documented By: CLAUDIA Potassium Chloride (Potassium Chloride 20 Meq Tab) 20 meq PO Q2H [facility] Stop: 01/22/22 09:31 Last Admin: 01/22/22 11:39 Dose: 20 meq Documented By: Admin: 01/22/22 08:56 Dose: 20 meq Documented By: JAIME Potassium Chloride (Potassium Chloride 20 Meq Tab) 20 meq PO Q2H [facility] Stop: 01/22/22 11:46 Prochlorperazine (Prochlorperazine 10 Mg/2 Ml Vial) 10 mg IV Q6HR PRN PRN Reason: Nausea Last Admin: 01/20/22 10:38 Dose: 10 mg Documented By: Admin: 01/19/22 12:48 Dose: 10 mg Documented By: AT Sennosides (Sennosides 8.6 Mg Tablet) 8.6 mg PO BID PRN PRN Reason: Constipation Sertraline HCl (Sertraline 50 Mg Tablet) 50 mg PO DAILY [facility] Last Admin: 01/22/22 08:56 Dose: 50 mg Documented By: Admin: 01/21/22 09:36 Dose: 50 mg Documented By: Admin: 01/20/22 09:35 Dose: 50 mg Documented By: PRITI Vital Signs Vital signs: Vital Signs - 8 hr 01/19/22 06:15 01/19/22 06:15 01/19/22 06:36 Pulse Rate 85 88 Respiratory Rate Blood Pressure 228/105 H Pulse Oximetry 100 97 Oxygen Delivery Method 01/19/22 07:00 01/19/22 07:34 01/19/22 07:35 Pulse Rate 86 91 H 87 Respiratory Rate Blood Pressure Pulse Oximetry 98 97 98 Oxygen Delivery Method 01/19/22 07:35 01/19/22 07:36 01/19/22 07:36 Pulse Rate 90 Respiratory Rate 16 Blood Pressure 226/102 H 214/89 H Pulse Oximetry 98 Oxygen Delivery Method Room Air 01/19/22 07:40 01/19/22 07:46 01/19/22 08:00 Pulse Rate 99 H Respiratory Rate Blood Pressure 211/98 H 209/114 H Pulse Oximetry 100 Oxygen Delivery Method 01/19/22 08:15 01/19/22 08:30 01/19/22 08:45 Pulse Rate Respiratory Rate 15 Blood Pressure 206/90 H 201/97 H 191/80 H Pulse Oximetry 99 Oxygen Delivery Method 01/19/22 09:00 01/19/22 09:15 01/19/22 09:31 Pulse Rate Respiratory Rate Blood Pressure 188/85 H 187/83 H 199/96 H Pulse Oximetry Oxygen Delivery Method 01/19/22 09:45 01/19/22 10:01 Pulse Rate Respiratory Rate Blood Pressure 201/90 H 219/106 H Pulse Oximetry Oxygen Delivery Method <Dimple Esquivel, - Last Filed: 01/19/22 19:03> Orders Ordered: Discontinued Medications Acetaminophen (Acetaminophen 325 Mg Tablet) 650 mg PO Q6H PRN PRN Reason: Fever/Mild Pain (1-3) Last Admin: 01/22/22 01:49 Dose: 650 mg Documented By: Admin: 01/20/22 06:52 Dose: 650 mg Documented By: CONRAD Aspirin (Aspirin 81 Mg Chew Tab) 324 mg PO NOW ONE Stop: 01/19/22 13:14 Last Admin: 01/19/22 13:37 Dose: 324 mg Documented By: MAYO Aspirin (Aspirin Ec 81 Mg Tablet) 81 mg PO DAILY [facility] Last Admin: 01/22/22 08:56 Dose: 81 mg Documented By: Admin: 01/21/22 09:36 Dose: 81 mg Documented By: Admin: 01/20/22 09:34 Dose: 81 mg Documented By: PRITI Hydromorphone HCl (Hydromorphone 1 Mg Inj) 1 mg IV NOW ONE Stop: 01/19/22 05:59 Last Admin: 01/19/22 06:04 Dose: 1 mg Documented By: NATI Hydromorphone HCl (Hydromorphone 0.5 Mg Inj) 0.5 mg IV Q4H PRN PRN Reason: Pain, Moderate (4-6) Last Admin: 01/21/22 06:13 Dose: 0.5 mg Documented By: Admin: 01/21/22 01:21 Dose: 0.5 mg Documented By: Admin: 01/20/22 21:47 Dose: 0.5 mg Documented By: Admin: 01/20/22 10:48 Dose: 0.5 mg Documented By: Admin: 01/20/22 01:07 Dose: 0.5 mg Documented By: Admin: 01/19/22 17:03 Dose: 0.5 mg Documented By: ANALISA Hydromorphone HCl (Hydromorphone 2 Mg Tablet) 2 mg PO Q3H PRN PRN Reason: Pain, Severe (7-10) Sodium Chloride (Normal Saline 0.9%) 1,000 mls @ 1,000 mls/hr IV BOLUS ONE Stop: 01/19/22 06:57 Last Infusion: 01/19/22 07:37 Dose: 0 mls/hr Documented By: Admin: 01/19/22 06:04 Dose: 1,000 mls/hr Documented By: NATI Sodium Chloride (Normal Saline 0.9%) 1,000 mls @ 1,000 mls/hr IV BOLUS ONE Stop: 01/19/22 09:05 Last Infusion: 01/19/22 09:45 Dose: 0 mls/hr Documented By: Admin: 01/19/22 08:15 Dose: 1,000 mls/hr Documented By: OLGA Piperacillin Sod/Tazobactam (Sod 4.5 gm/ Sodium Chloride) 100 mls @ 200 mls/hr IV NOW ONE Stop: 01/19/22 10:32 Last Infusion: 01/19/22 11:35 Dose: 0 mls/hr Documented By: Admin: 01/19/22 11:03 Dose: 200 mls/hr Documented By: OLGA Sodium Chloride (Normal Saline 0.9%) 1,000 mls @ 100 mls/hr IV CONT GINA Stop: 01/19/22 22:59 Last Admin: 01/19/22 18:16 Dose: 100 mls/hr Documented By: Infusion: 01/19/22 18:16 Dose: 0 mls/hr Documented By: Infusion: 01/19/22 14:15 Dose: 0 mls/hr Documented By: Admin: 01/19/22 11:28 Dose: 100 mls/hr Documented By: OLGA Magnesium Sulfate (Magnesium Sulfate) 4 gm in 100 mls @ 25 mls/hr IV NOW ONE Stop: 01/19/22 15:54 Last Infusion: 01/19/22 14:15 Dose: 0 mls/hr Documented By: AT Co-signed By: MAYO Admin: 01/19/22 12:17 Dose: 25 mls/hr Documented By: AT Co-signed By: EMILY Heparin Sodium/Dextrose (Heparin Drip) 25,000 unit in 500 mls @ 16.982 mls/hr IV CONT GINA; Protocol Last Admin: 01/20/22 22:53 Dose: 12 units/kg/hr, 16.982 mls/hr Documented By: Titration: 01/20/22 21:23 Dose: 12 units/kg/hr, 16.982 mls/hr Documented By: Admin: 01/19/22 15:56 Dose: 12 units/kg/hr, 16.982 mls/hr Documented By: ANALISA Piperacillin Sod/Tazobactam (Sod 3.375 gm/ Sodium Chloride) 100 mls @ 25 mls/hr IV Q8H [facility] Last Admin: 01/22/22 10:49 Dose: Not Given Documented By: Infusion: 01/22/22 06:15 Dose: 0 mls/hr Documented By: Admin: 01/22/22 01:48 Dose: 25 mls/hr Documented By: Infusion: 01/22/22 00:22 Dose: 0 mls/hr Documented By: Admin: 01/21/22 18:45 Dose: 25 mls/hr Documented By: Infusion: 01/21/22 15:28 Dose: 25 mls/hr Documented By: AWBisi Admin: 01/21/22 11:28 Dose: 25 mls/hr Documented By: Infusion: 01/21/22 06:38 Dose: 25 mls/hr Documented By: Admin: 01/21/22 02:38 Dose: 25 mls/hr Documented By: Infusion: 01/20/22 21:40 Dose: 0 mls/hr Documented By: Admin: 01/20/22 17:34 Dose: 25 mls/hr Documented By: Infusion: 01/20/22 15:39 Dose: 0 mls/hr Documented By: Admin: 01/20/22 11:39 Dose: 25 mls/hr Documented By: Infusion: 01/20/22 06:43 Dose: 25 mls/hr Documented By: Admin: 01/20/22 02:43 Dose: 25 mls/hr Documented By: Infusion: 01/19/22 23:00 Dose: 0 mls/hr Documented By: Admin: 01/19/22 18:57 Dose: 25 mls/hr Documented By: ANALISA Sodium Chloride (Normal Saline 0.9%) 1,000 mls @ 100 mls/hr IV CONT GINA Stop: 01/22/22 07:00 Last Admin: 01/22/22 01:50 Dose: 100 mls/hr Documented By: Infusion: 01/22/22 01:09 Dose: 0 mls/hr Documented By: Admin: 01/21/22 15:09 Dose: 100 mls/hr Documented By: Infusion: 01/21/22 15:09 Dose: 100 mls/hr Documented By: Admin: 01/21/22 05:09 Dose: 100 mls/hr Documented By: Infusion: 01/21/22 04:43 Dose: 100 mls/hr Documented By: Admin: 01/20/22 18:43 Dose: 100 mls/hr Documented By: ANALISA Ketorolac Tromethamine (Ketorolac 30 Mg/Ml Vial) 30 mg IV NOW ONE Stop: 01/19/22 07:39 Last Admin: 01/19/22 07:55 Dose: 30 mg Documented By: OLGA Labetalol HCl (Labetalol 20 Mg/4 Ml Syringe) 10 mg IV NOW ONE Stop: 01/19/22 10:34 Last Admin: 01/19/22 11:02 Dose: 10 mg Documented By: OLGA Labetalol HCl (Labetalol 20 Mg/4 Ml Syringe) 10 mg IV Q5H PRN PRN Reason: SBP >180 or DBP >110 Last Admin: 01/19/22 12:14 Dose: 10 mg Documented By: VITOR Lorazepam (Lorazepam 2 Mg/Ml Inj) 0.5 mg IV NOW ONE Stop: 01/19/22 07:49 Last Admin: 01/19/22 07:55 Dose: 0.5 mg Documented By: OLGA Lorazepam (Lorazepam 2 Mg/Ml Inj) 0.5 mg IV Q4HR PRN PRN Reason: nausea and vomiting Last Admin: 01/22/22 01:51 Dose: 0.5 mg Documented By: Admin: 01/21/22 15:55 Dose: 0.5 mg Documented By: Admin: 01/21/22 00:15 Dose: 0.5 mg Documented By: Admin: 01/20/22 20:02 Dose: 0.5 mg Documented By: Admin: 01/20/22 15:00 Dose: 0.5 mg Documented By: ANALISA Melatonin (Melatonin 3 Mg Tablet) 6 mg PO BEDTIME PRN PRN Reason: Insomnia Last Admin: 01/22/22 01:51 Dose: 6 mg Documented By: Admin: 01/19/22 22:55 Dose: 6 mg Documented By: CONRAD Metoclopramide HCl (Metoclopramide 10 Mg/2 Ml Inj) 10 mg IV NOW ONE Stop: 01/19/22 06:57 Last Admin: 01/19/22 07:02 Dose: 10 mg Documented By: MEGHAN Metoprolol Tartrate (Metoprolol Ir 25 Mg Tablet) 25 mg PO NOW ONE Stop: 01/19/22 10:06 Last Admin: 01/19/22 10:45 Dose: Not Given Documented By: OLGA Naloxone HCl (Naloxone 0.4 Mg/Ml Vial) 0.2 mg IV Q2MIN PRN PRN Reason: Opiate Reversal Nitroglycerin (Nitroglycerin 0.4 Mg Sl Tab) 0.4 mg SL [id number] PRN PRN Reason: Chest Pain Last Admin: 01/19/22 13:41 Dose: 0.4 mg Documented By: MAYO Thyroid (Pork) [ Nature-Throid] 97.5 Mg Tablet 97.5 mg PO DAILY@0600 [facility] Last Admin: 01/22/22 06:14 Dose: Not Given Documented By: Admin: 01/21/22 05:11 Dose: Not Given Documented By: Admin: 01/20/22 06:16 Dose: Not Given Documented By: CONRAD Ondansetron HCl (Ondansetron 4 Mg/2 Ml Inj) 4 mg IV NOW ONE Stop: 01/19/22 05:59 Last Admin: 01/19/22 06:04 Dose: 4 mg Documented By: NATI Ondansetron HCl (Ondansetron 4 Mg/2 Ml Inj) 4 mg IV Q8HR PRN PRN Reason: Nausea And Vomiting Last Admin: 01/19/22 17:03 Dose: 4 mg Documented By: ANALISA Ondansetron HCl (Ondansetron 4 Mg/2 Ml Inj) 4 mg IV Q6HR [facility] Last Admin: 01/22/22 06:13 Dose: 4 mg Documented By: Admin: 01/22/22 00:23 Dose: 4 mg Documented By: Admin: 01/21/22 18:45 Dose: 4 mg Documented By: Admin: 01/21/22 12:40 Dose: 4 mg Documented By: Admin: 01/21/22 05:09 Dose: 4 mg Documented By: Admin: 01/20/22 22:57 Dose: 4 mg Documented By: Admin: 01/20/22 17:33 Dose: 4 mg Documented By: Admin: 01/20/22 12:58 Dose: 4 mg Documented By: ANALISA Polyethylene Glycol (Polyethylene Glycol 3350 17 Gm Powd.Pack) 17 gm PO DAILY PRN PRN Reason: Constipation Potassium Chloride (Potassium Chloride 20 Meq/15 Ml Udc) 40 meq PO NOW ONE Stop: 01/20/22 09:46 Last Admin: 01/20/22 11:37 Dose: Not Given Documented By: ANALISA Potassium Chloride (Potassium Chloride 20 Meq Tab) 40 meq PO Q6H GINA Stop: 01/21/22 15:01 Last Admin: 01/21/22 19:20 Dose: Not Given Documented By: Admin: 01/21/22 10:50 Dose: 40 meq Documented By: HALLIE Potassium Chloride (Potassium Chloride 20 Meq Tab) 40 meq PO Q6H GINA Stop: 01/21/22 17:01 Last Admin: 01/21/22 22:40 Dose: Not Given Documented By: CLAUDIA Potassium Chloride (Potassium Chloride 20 Meq Tab) 20 meq PO Q2H GINA Stop: 01/22/22 09:31 Last Admin: 01/22/22 11:39 Dose: 20 meq Documented By: Admin: 01/22/22 08:56 Dose: 20 meq Documented By: JAIME Potassium Chloride (Potassium Chloride 20 Meq Tab) 20 meq PO Q2H GINA Stop: 01/22/22 11:46 Prochlorperazine (Prochlorperazine 10 Mg/2 Ml Vial) 10 mg IV Q6HR PRN PRN Reason: Nausea Last Admin: 01/20/22 10:38 Dose: 10 mg Documented By: Admin: 01/19/22 12:48 Dose: 10 mg Documented By: AT Sennosides (Sennosides 8.6 Mg Tablet) 8.6 mg PO BID PRN PRN Reason: Constipation Sertraline HCl (Sertraline 50 Mg Tablet) 50 mg PO DAILY [facility] Last Admin: 01/22/22 08:56 Dose: 50 mg Documented By: Admin: 01/21/22 09:36 Dose: 50 mg Documented By: Admin: 01/20/22 09:35 Dose: 50 mg Documented By: PRITI Vital Signs Vital signs: Vital Signs - 8 hr 01/19/22 06:15 01/19/22 06:15 01/19/22 06:36 Pulse Rate 85 88 Respiratory Rate Blood Pressure 228/105 H Pulse Oximetry 100 97 Oxygen Delivery Method 01/19/22 07:00 01/19/22 07:34 01/19/22 07:35 Pulse Rate 86 91 H 87 Respiratory Rate Blood Pressure Pulse Oximetry 98 97 98 Oxygen Delivery Method 01/19/22 07:35 01/19/22 07:36 01/19/22 07:36 Pulse Rate 90 Respiratory Rate 16 Blood Pressure 226/102 H 214/89 H Pulse Oximetry 98 Oxygen Delivery Method Room Air 01/19/22 07:40 01/19/22 07:46 01/19/22 08:00 Pulse Rate 99 H Respiratory Rate Blood Pressure 211/98 H 209/114 H Pulse Oximetry 100 Oxygen Delivery Method 01/19/22 08:15 01/19/22 08:30 01/19/22 08:45 Pulse Rate Respiratory Rate 15 Blood Pressure 206/90 H 201/97 H 191/80 H Pulse Oximetry 99 Oxygen Delivery Method 01/19/22 09:00 01/19/22 09:15 01/19/22 09:31 Pulse Rate Respiratory Rate Blood Pressure 188/85 H 187/83 H 199/96 H Pulse Oximetry Oxygen Delivery Method 01/19/22 09:45 01/19/22 10:01 Pulse Rate Respiratory Rate Blood Pressure 201/90 H 219/106 H Pulse Oximetry Oxygen Delivery Method MDM - Nausea/Vomiting/Diarrhea <Bunny Malik MD - Last Filed: 01/28/22 08:32> Lab Data Result diagrams: 01/22/22 04:34 01/22/22 04:34 Labs: Lab Results 01/19/22 01/19/22 01/19/22 Range/Units 05:45 05:45 05:45 WBC 24.3 H (4.5-11.0) X10^3/uL RBC 4.53 (4.0-5.2) X10^6/uL Hgb 13.6 (12.0-16.0) g/dL Hct 40.8 (36-46) % MCV 90.0 (80-100) fL MCH 30.1 (26-34) PG MCHC 33.4 (30-36) % RDW 12.8 (11.6-14.8) % Plt Count 357 (150-400) X10^3/uL Neut % (Auto) 94.1 H (50-75) % Lymph % (Auto) 2.9 L (25-40) % [place] % (Auto) 2.7 L (3-14) % Eos % (Auto) 0.0 L (2-4) % Baso % (Auto) 0.3 (0-2) % Neut # (Auto) 85387 H (7946-7626) /uL Lymph # (Auto) 700 L (1097-2577) /uL [place] # (Auto) 700 (0-900) /uL Eos # (Auto) 0 (0-450) /uL Baso # (Auto) 100 (0-100) /uL Sodium 135 L (137-145) mmol/L Potassium 3.6 (3.4-5.1) mmol/L Chloride 102 (98-107) mmol/L Carbon Dioxide 21 L (22-32) mmol/L BUN 14 (7-17) mg/dL Creatinine 0.56 (0.52-1.04) mg/dL Estimated GFR > 60 (>60) mL/min BUN/Creatinine Ratio 25.0 H (6-22) Glucose 141 H (70-100) mg/dL Lactate 3.0 H (0.7-2.1) mmol/L Calcium 9.9 (8.4-10.2) mg/dL Total Bilirubin 0.8 (0.2-1.3) mg/dL AST 32 (14-36) IU/L ALT 33 (<35) IU/L Alkaline Phosphatase 77 (38-126) U/L Total Protein 8.9 H (6.3-8.2) g/dL Albumin 4.9 (3.5-5.0) g/dL Globulin 4.0 (1.7-4.1) g/dL Albumin/Globulin Ratio 1.2 (1.0-2.8) Lipase 35 (23-300) U/L Urine RBC (0-5/HPF) Urine WBC (0-5/HPF) Ur Squamous Epith Cells (0-5/HPF) Urine Bacteria (None) Ur Culture Indicated? Chlamy pneumoniae PCR (Not Detect) Adenovirus (PCR) (Not Detect) B. pertussis DNA (PCR) (Not Detecte) B.parapertussis DNA PCR (Not Detecte) Coronavirus OC43 (PCR) (Not Detect) Coronavirus HKU1 (PCR) (Not Detect) Coronavirus 229E (PCR) (Not Detect) SARS-CoV-2 (PCR) (Not Detecte) Coronavirus NL63 (PCR) (Not Detect) Human Metapneumovir PCR (Not Detect) Influenza A (RT-PCR) (NEGATIVE) Influenza Type A (PCR) (Not Detect) Influenza B (RT-PCR) (NEGATIVE) Influenza Type B (PCR) (Not Detect) M. pneumoniae (PCR) (Not Detect) Parainfluenza 1 (PCR) (Not Detect) Parainfluenza 2 (PCR) (Not Detect) Parainfluenza 3 (PCR) (Not Detect) Parainfluenza 4 (PCR) (Not Detect) RSV (PCR) (Not Detect) Entero/Rhino (PCR) (Not Detect) 01/19/22 01/19/22 01/19/22 Range/Units 06:54 08:00 08:01 WBC (4.5-11.0) X10^3/uL RBC (4.0-5.2) X10^6/uL Hgb (12.0-16.0) g/dL Hct (36-46) % MCV (80-100) fL MCH (26-34) PG MCHC (30-36) % RDW (11.6-14.8) % Plt Count (150-400) X10^3/uL Neut % (Auto) (50-75) % Lymph % (Auto) (25-40) % [place] % (Auto) (3-14) % Eos % (Auto) (2-4) % Baso % (Auto) (0-2) % Neut # (Auto) (0055-8995) /uL Lymph # (Auto) (9255-7197) /uL [place] # (Auto) (0-900) /uL Eos # (Auto) (0-450) /uL Baso # (Auto) (0-100) /uL Sodium (137-145) mmol/L Potassium (3.4-5.1) mmol/L Chloride (98-107) mmol/L Carbon Dioxide (22-32) mmol/L BUN (7-17) mg/dL Creatinine (0.52-1.04) mg/dL Estimated GFR (>60) mL/min BUN/Creatinine Ratio (6-22) Glucose (70-100) mg/dL Lactate (0.7-2.1) mmol/L Calcium (8.4-10.2) mg/dL Total Bilirubin (0.2-1.3) mg/dL AST (14-36) IU/L ALT (<35) IU/L Alkaline Phosphatase (38-126) U/L Total Protein (6.3-8.2) g/dL Albumin (3.5-5.0) g/dL Globulin (1.7-4.1) g/dL Albumin/Globulin Ratio (1.0-2.8) Lipase (23-300) U/L Urine RBC None seen (0-5/HPF) Urine WBC 0-1/hpf (0-5/HPF) Ur Squamous Epith Cells 0-1 /hpf D (0-5/HPF) Urine Bacteria Occasional (0-1) (None) Ur Culture Indicated? Cult not indicated Chlamy pneumoniae PCR Not detected (Not Detect) Adenovirus (PCR) Not detected (Not Detect) B. pertussis DNA (PCR) Not detected (Not Detecte) B.parapertussis DNA PCR Not detected (Not Detecte) Coronavirus OC43 (PCR) Not detected (Not Detect) Coronavirus HKU1 (PCR) Not detected (Not Detect) Coronavirus 229E (PCR) Not detected (Not Detect) SARS-CoV-2 (PCR) Not detected Negative (Not Detecte) Coronavirus NL63 (PCR) Not detected (Not Detect) Human Metapneumovir PCR Not detected (Not Detect) Influenza A (RT-PCR) Flu a negative (NEGATIVE) Influenza Type A (PCR) Not detected (Not Detect) Influenza B (RT-PCR) Flu b negative (NEGATIVE) Influenza Type B (PCR) Not detected (Not Detect) M. pneumoniae (PCR) Not detected (Not Detect) Parainfluenza 1 (PCR) Not detected (Not Detect) Parainfluenza 2 (PCR) Not detected (Not Detect) Parainfluenza 3 (PCR) Not detected (Not Detect) Parainfluenza 4 (PCR) Not detected (Not Detect) RSV (PCR) Not detected Negative (Not Detect) Entero/Rhino (PCR) Not detected (Not Detect) 01/19/22 Range/Units 08:45 WBC (4.5-11.0) X10^3/uL RBC (4.0-5.2) X10^6/uL Hgb (12.0-16.0) g/dL Hct (36-46) % MCV (80-100) fL MCH (26-34) PG MCHC (30-36) % RDW (11.6-14.8) % Plt Count (150-400) X10^3/uL Neut % (Auto) (50-75) % Lymph % (Auto) (25-40) % [place] % (Auto) (3-14) % Eos % (Auto) (2-4) % Baso % (Auto) (0-2) % Neut # (Auto) (4825-8924) /uL Lymph # (Auto) (4687-0550) /uL [place] # (Auto) (0-900) /uL Eos # (Auto) (0-450) /uL Baso # (Auto) (0-100) /uL Sodium (137-145) mmol/L Potassium (3.4-5.1) mmol/L Chloride (98-107) mmol/L Carbon Dioxide (22-32) mmol/L BUN (7-17) mg/dL Creatinine (0.52-1.04) mg/dL Estimated GFR (>60) mL/min BUN/Creatinine Ratio (6-22) Glucose (70-100) mg/dL Lactate 1.5 (0.7-2.1) mmol/L Calcium (8.4-10.2) mg/dL Total Bilirubin (0.2-1.3) mg/dL AST (14-36) IU/L ALT (<35) IU/L Alkaline Phosphatase (38-126) U/L Total Protein (6.3-8.2) g/dL Albumin (3.5-5.0) g/dL Globulin (1.7-4.1) g/dL Albumin/Globulin Ratio (1.0-2.8) Lipase (23-300) U/L Urine RBC (0-5/HPF) Urine WBC (0-5/HPF) Ur Squamous Epith Cells (0-5/HPF) Urine Bacteria (None) Ur Culture Indicated? Chlamy pneumoniae PCR (Not Detect) Adenovirus (PCR) (Not Detect) B. pertussis DNA (PCR) (Not Detecte) B.parapertussis DNA PCR (Not Detecte) Coronavirus OC43 (PCR) (Not Detect) Coronavirus HKU1 (PCR) (Not Detect) Coronavirus 229E (PCR) (Not Detect) SARS-CoV-2 (PCR) (Not Detecte) Coronavirus NL63 (PCR) (Not Detect) Human Metapneumovir PCR (Not Detect) Influenza A (RT-PCR) (NEGATIVE) Influenza Type A (PCR) (Not Detect) Influenza B (RT-PCR) (NEGATIVE) Influenza Type B (PCR) (Not Detect) M. pneumoniae (PCR) (Not Detect) Parainfluenza 1 (PCR) (Not Detect) Parainfluenza 2 (PCR) (Not Detect) Parainfluenza 3 (PCR) (Not Detect) Parainfluenza 4 (PCR) (Not Detect) RSV (PCR) (Not Detect) Entero/Rhino (PCR) (Not Detect) Urine Dip Bedside Urine Glucose Negative Bedside Urine Bilirubin - Negative Bedside Urine Ketone + 15 Urine Specific [place] 1.010 Bedside Urine Occult Blood - Negative Bedside Urine pH 8.5 Bedside Urine Protein - Negative Bedside Urine Urobilinogen - Negative Bedside Urine Nitrite - Negative Bedside Urine Leukocytes - Negative Esterase <Dimple Esquivel, DO - Last Filed: 01/19/22 19:03> Lab Data Labs: Lab Results 01/19/22 01/19/22 01/19/22 Range/Units 05:45 05:45 05:45 WBC 24.3 H (4.5-11.0) X10^3/uL RBC 4.53 (4.0-5.2) X10^6/uL Hgb 13.6 (12.0-16.0) g/dL Hct 40.8 (36-46) % MCV 90.0 (80-100) fL MCH 30.1 (26-34) PG MCHC 33.4 (30-36) % RDW 12.8 (11.6-14.8) % Plt Count 357 (150-400) X10^3/uL Neut % (Auto) 94.1 H (50-75) % Lymph % (Auto) 2.9 L (25-40) % [place] % (Auto) 2.7 L (3-14) % Eos % (Auto) 0.0 L (2-4) % Baso % (Auto) 0.3 (0-2) % Neut # (Auto) 39798 H (8318-6688) /uL Lymph # (Auto) 700 L (0184-4153) /uL [place] # (Auto) 700 (0-900) /uL Eos # (Auto) 0 (0-450) /uL Baso # (Auto) 100 (0-100) /uL Sodium 135 L (137-145) mmol/L Potassium 3.6 (3.4-5.1) mmol/L Chloride 102 (98-107) mmol/L Carbon Dioxide 21 L (22-32) mmol/L BUN 14 (7-17) mg/dL Creatinine 0.56 (0.52-1.04) mg/dL Estimated GFR > 60 (>60) mL/min BUN/Creatinine Ratio 25.0 H (6-22) Glucose 141 H (70-100) mg/dL Lactate 3.0 H (0.7-2.1) mmol/L Calcium 9.9 (8.4-10.2) mg/dL Total Bilirubin 0.8 (0.2-1.3) mg/dL AST 32 (14-36) IU/L ALT 33 (<35) IU/L Alkaline Phosphatase 77 (38-126) U/L Total Protein 8.9 H (6.3-8.2) g/dL Albumin 4.9 (3.5-5.0) g/dL Globulin 4.0 (1.7-4.1) g/dL Albumin/Globulin Ratio 1.2 (1.0-2.8) Lipase 35 (23-300) U/L Urine RBC (0-5/HPF) Urine WBC (0-5/HPF) Ur Squamous Epith Cells (0-5/HPF) Urine Bacteria (None) Ur Culture Indicated? Chlamy pneumoniae PCR (Not Detect) Adenovirus (PCR) (Not Detect) B. pertussis DNA (PCR) (Not Detecte) B.parapertussis DNA PCR (Not Detecte) Coronavirus OC43 (PCR) (Not Detect) Coronavirus HKU1 (PCR) (Not Detect) Coronavirus 229E (PCR) (Not Detect) SARS-CoV-2 (PCR) (Not Detecte) Coronavirus NL63 (PCR) (Not Detect) Human Metapneumovir PCR (Not Detect) Influenza A (RT-PCR) (NEGATIVE) Influenza Type A (PCR) (Not Detect) Influenza B (RT-PCR) (NEGATIVE) Influenza Type B (PCR) (Not Detect) M. pneumoniae (PCR) (Not Detect) Parainfluenza 1 (PCR) (Not Detect) Parainfluenza 2 (PCR) (Not Detect) Parainfluenza 3 (PCR) (Not Detect) Parainfluenza 4 (PCR) (Not Detect) RSV (PCR) (Not Detect) Entero/Rhino (PCR) (Not Detect) 01/19/22 01/19/22 01/19/22 Range/Units 06:54 08:00 08:01 WBC (4.5-11.0) X10^3/uL RBC (4.0-5.2) X10^6/uL Hgb (12.0-16.0) g/dL Hct (36-46) % MCV (80-100) fL MCH (26-34) PG MCHC (30-36) % RDW (11.6-14.8) % Plt Count (150-400) X10^3/uL Neut % (Auto) (50-75) % Lymph % (Auto) (25-40) % [place] % (Auto) (3-14) % Eos % (Auto) (2-4) % Baso % (Auto) (0-2) % Neut # (Auto) (7493-1245) /uL Lymph # (Auto) (2736-0243) /uL [place] # (Auto) (0-900) /uL Eos # (Auto) (0-450) /uL Baso # (Auto) (0-100) /uL Sodium (137-145) mmol/L Potassium (3.4-5.1) mmol/L Chloride (98-107) mmol/L Carbon Dioxide (22-32) mmol/L BUN (7-17) mg/dL Creatinine (0.52-1.04) mg/dL Estimated GFR (>60) mL/min BUN/Creatinine Ratio (6-22) Glucose (70-100) mg/dL Lactate (0.7-2.1) mmol/L Calcium (8.4-10.2) mg/dL Total Bilirubin (0.2-1.3) mg/dL AST (14-36) IU/L ALT (<35) IU/L Alkaline Phosphatase (38-126) U/L Total Protein (6.3-8.2) g/dL Albumin (3.5-5.0) g/dL Globulin (1.7-4.1) g/dL Albumin/Globulin Ratio (1.0-2.8) Lipase (23-300) U/L Urine RBC None seen (0-5/HPF) Urine WBC 0-1/hpf (0-5/HPF) Ur Squamous Epith Cells 0-1 /hpf D (0-5/HPF) Urine Bacteria Occasional (0-1) (None) Ur Culture Indicated? Cult not indicated Chlamy pneumoniae PCR Not detected (Not Detect) Adenovirus (PCR) Not detected (Not Detect) B. pertussis DNA (PCR) Not detected (Not Detecte) B.parapertussis DNA PCR Not detected (Not Detecte) Coronavirus OC43 (PCR) Not detected (Not Detect) Coronavirus HKU1 (PCR) Not detected (Not Detect) Coronavirus 229E (PCR) Not detected (Not Detect) SARS-CoV-2 (PCR) Not detected Negative (Not Detecte) Coronavirus NL63 (PCR) Not detected (Not Detect) Human Metapneumovir PCR Not detected (Not Detect) Influenza A (RT-PCR) Flu a negative (NEGATIVE) Influenza Type A (PCR) Not detected (Not Detect) Influenza B (RT-PCR) Flu b negative (NEGATIVE) Influenza Type B (PCR) Not detected (Not Detect) M. pneumoniae (PCR) Not detected (Not Detect) Parainfluenza 1 (PCR) Not detected (Not Detect) Parainfluenza 2 (PCR) Not detected (Not Detect) Parainfluenza 3 (PCR) Not detected (Not Detect) Parainfluenza 4 (PCR) Not detected (Not Detect) RSV (PCR) Not detected Negative (Not Detect) Entero/Rhino (PCR) Not detected (Not Detect) 01/19/22 Range/Units 08:45 WBC (4.5-11.0) X10^3/uL RBC (4.0-5.2) X10^6/uL Hgb (12.0-16.0) g/dL Hct (36-46) % MCV (80-100) fL MCH (26-34) PG MCHC (30-36) % RDW (11.6-14.8) % Plt Count (150-400) X10^3/uL Neut % (Auto) (50-75) % Lymph % (Auto) (25-40) % [place] % (Auto) (3-14) % Eos % (Auto) (2-4) % Baso % (Auto) (0-2) % Neut # (Auto) (7327-5999) /uL Lymph # (Auto) (2209-0674) /uL [place] # (Auto) (0-900) /uL Eos # (Auto) (0-450) /uL Baso # (Auto) (0-100) /uL Sodium (137-145) mmol/L Potassium (3.4-5.1) mmol/L Chloride (98-107) mmol/L Carbon Dioxide (22-32) mmol/L BUN (7-17) mg/dL Creatinine (0.52-1.04) mg/dL Estimated GFR (>60) mL/min BUN/Creatinine Ratio (6-22) Glucose (70-100) mg/dL Lactate 1.5 (0.7-2.1) mmol/L Calcium (8.4-10.2) mg/dL Total Bilirubin (0.2-1.3) mg/dL AST (14-36) IU/L ALT (<35) IU/L Alkaline Phosphatase (38-126) U/L Total Protein (6.3-8.2) g/dL Albumin (3.5-5.0) g/dL Globulin (1.7-4.1) g/dL Albumin/Globulin Ratio (1.0-2.8) Lipase (23-300) U/L Urine RBC (0-5/HPF) Urine WBC (0-5/HPF) Ur Squamous Epith Cells (0-5/HPF) Urine Bacteria (None) Ur Culture Indicated? Chlamy pneumoniae PCR (Not Detect) Adenovirus (PCR) (Not Detect) B. pertussis DNA (PCR) (Not Detecte) B.parapertussis DNA PCR (Not Detecte) Coronavirus OC43 (PCR) (Not Detect) Coronavirus HKU1 (PCR) (Not Detect) Coronavirus 229E (PCR) (Not Detect) SARS-CoV-2 (PCR) (Not Detecte) Coronavirus NL63 (PCR) (Not Detect) Human Metapneumovir PCR (Not Detect) Influenza A (RT-PCR) (NEGATIVE) Influenza Type A (PCR) (Not Detect) Influenza B (RT-PCR) (NEGATIVE) Influenza Type B (PCR) (Not Detect) M. pneumoniae (PCR) (Not Detect) Parainfluenza 1 (PCR) (Not Detect) Parainfluenza 2 (PCR) (Not Detect) Parainfluenza 3 (PCR) (Not Detect) Parainfluenza 4 (PCR) (Not Detect) RSV (PCR) (Not Detect) Entero/Rhino (PCR) (Not Detect) Urine Dip Bedside Urine Glucose Negative Bedside Urine Bilirubin - Negative Bedside Urine Ketone + 15 Urine Specific [place] 1.010 Bedside Urine Occult Blood - Negative Bedside Urine pH 8.5 Bedside Urine Protein - Negative Bedside Urine Urobilinogen - Negative Bedside Urine Nitrite - Negative Bedside Urine Leukocytes - Negative Esterase Imaging Data CT scan - abdomen/pelvis: Radiologist's Impression: [place] [address] CT Scan Report Signed Patient: May Martinez MR#: [id number] : 1965 Acct:[id number] Age/Sex: 56 / F Date of Service: 01/19/22 Loc: ED Accession Number: [id number] ?? Procedure: CT abdomen pelvis w con Ordering Provider: Bunny Malik MD PROCEDURE:? CT ABDOMEN PELVIS W CON ? INDICATIONS:? iv contrast only/abd pain ? TECHNIQUE:? After the administration of IV contrast, axial sections were acquired from the lung bases to the pubic symphysis.? Coronal and sagittal reformats were performed.? For radiation dose reduction, the following was used:? automated exposure control, adjustment of mA and/or kV according to patient size. ? [facility]PARISON:[facility] WITHOUT [facility]AST, 06/29/[facility]21, 10:34.? [facility], CT, CT ABDOMEN PELVIS W CON, 08/15/2019, 15:02. ? FINDINGS:? Image quality:? Excellent.? ? Lung bases:? Unremarkable.? Small hiatal hernia.? Heart:? No significant findings. ? ? ABDOMEN: Liver:? Normal size.? Mild hepatic steatosis.? ? Gallbladder:? Unremarkable.? ? Biliary ducts:? Unremarkable.? ? Pancreas:? Unremarkable.? ? Spleen:? Unremarkable.? ? Adrenal Glands:? Unremarkable.? ? Kidneys and Ureters:? Unremarkable.? ? ? Stomach and Bowel:? Stomach is nondistended and appears grossly normal.? There is appearance of mild thickening of the proximal horizontal segment of duodenum.? Small bowel loops and colon are normal in caliber.? Peritoneum:? There is a small amount of free fluid.? No free air.? ? Ventral Wall: ? No hernia.? Abdominal Nodes:? No retroperitoneal or mesenteric adenopathy by size criteria.? Vessels:? Aorta and inferior vena cava are normal in size.? ? PELVIS: Pelvic Organs:? Uterus is absent consistent with hysterectomy.? Ovaries are not definitively visualized.? There is no adnexal mass.? There is a small amount of free fluid in pelvis.? ? Bladder:? Unremarkable.? ? Pelvic Nodes: No enlarged lymph nodes.? Miscellaneous: No inguinal hernias are seen. ? ? ? Bones:? Degenerative and postsurgical changes are noted in lumbar spine sacrum.? IMPRESSION:? ? 1. Appearance of mild thickening of the duodenum involving the proximal horizontal segment.? In absence of oral contrast, the finding could be caused by artifact from inadequate distention or peristalsis.? Differential diagnoses are duodenitis and peptic ulcer disease.? Recommend clinical correlation. ? 2. A small amount of free fluid in pelvis.? This finding is nonspecific.? No significant discrepancy with the production reproduction manager radiology preliminary report. ? ? Dictated by: Belinda Kennedy M.D. on 01/19/2022 at 8:35 ? ? Approved by: Belinda Kennedy M.D. on 01/19/2022 at 8:43?? ECG Data Attestation: I personally reviewed and interpreted this ECG as follows: Prior ECG tracings: available for review Interpretation: Sinus rhythm rate 88 [place] 158 QRS 76 QTC of 474. No acute ST-elevation patient has inverted T-wave in 3, does not have contiguous change. Patient has prior EKG from 01/18/2020 which does not appear significantly changed. [facility] Narrative Medical decision making narrative: 01/19/22 [place]: Patient signed out to myself by Dr. Malik. Patient was seen independently evaluated by myself. Patient has felt unwell for about 2 days but started having epigastric abdominal pain, nausea and vomiting last night she had few episodes of small amount of diarrhea but she states it has been almost all nausea and vomiting she denies fevers she felt a little chilled at home. She has not had any headaches, no chest pain or shortness of breath. She denies back or flank pain. She denies dysuria, urgency or frequency. No black or bloody stools. Patient is tender she seems slightly distended on exam. Labs show white count of 24, lactate was 3 but improved to 1.5 with fluids, she was not initially tachycardic and she is been more hypertensive. CT abdomen pelvis shows some possible thickening of the duodenum but may be secondary to nondistention but no other significant changes, no signs of perforation or free air, no other other obstructive process or other clear causes. Discussing with patient they mentioned that there was a recent list area outbreak which there is but they have not had any deli meats or cheeses which has been the source. She has not been able to give a stool sample so far. Blood cultures are pending. Discussed observation with patient, patient had oral challenge which she failed. She was not able to take oral metoprolol. Discussed with hospitalist. Accepted by Dr. Sutton, discussed adding on troponin, ultrasound right upper quadrant, IV Zosyn, IV labetalol and will continue fluids. Patient accepted, troponin was positive at 0.4, patient was given aspirin, labetalol which helped blood pressure, case is discussed with Cardiology by myself, EKG does not show any acute changes. Dr. Roblero Merged with [facility] cardiology suspects more demand ischemia but does recommend echo, treatment with nitro and heparin if trending upwards. ECHO ordered. Patient also had D-dimer added on by hospitalist this is elevated so CT dissection protocol was ordered and is laso negative. <Dimple Esquivel, DO - Last Filed: 01/19/22 19:03> Critical Care Time Critical Care Time: Yes Total Critical Care Time: 35 Attestation: The high probability of a clinically significant, sudden or life threatening deterioration of the [cardiac, pulm] system(s) required my full and direct attention, intervention and personal management. The aggregate critical care time was [] minutes. This time is in addition to time spent performing reported procedures but includes the following: [x] Data Review and interpretation [x] Patient assessment and monitoring of vital signs [x] Documentation [x] Medication orders and management Discharge Plan Departure Patient Disposition: Admitted As Inpatient Clinical Impression: Abdominal pain, Leukocytosis, Vomiting Admit Date/Time: 01/19/22 10:49 Admit Provider: Yovani Sutton
[2022-01-19 06:02] LABS: Add Manual Diff / Slide Review NO; Basophils Absolute Auto 100 /uL (0-100); Basophils Percent Auto 0.3 % (0-2); Eosinophils Absolute Auto 0 /uL (0-450); Hematocrit 40.8 % (36-46); Hemoglobin 13.6 g/dL (12.0-16.0); Lymphocytes Absolute Auto 700 /uL (1100-4500); Lymphocytes Percent Auto 2.9 % (25-40); Mean Corpuscular HGB Conc 33.4 % (30-36); Mean Corpuscular Hemoglobin 30.1 PG (26-34); Monocytes Absolute Auto 700 /uL (0-900); Monocytes Percent Auto 2.7 % (3-14); Neutrophils Absolute Auto 22800 /uL (1500-7000); Neutrophils Percent Auto 94.1 % (50-75); Platelet Count 357 X10^3/uL (150-400); Red Blood Cell Count 4.53 X10^6/uL (4.0-5.2); Red Cell Distribution Width 12.8 % (11.6-14.8); White Blood Cell Count 24.3 X10^3/uL (4.5-11.0)
[2022-01-19] MEDS: ONDANSETRON 4 MG/2 ML INJ IV ×2 (06:04→17:03)
[2022-01-19] MEDS: SODIUM CHLORIDE 0.9% 1,000 ML 1000 ML IV ×2 (06:04→08:15)
[2022-01-19] MEDS: HYDROMORPHONE 1 MG INJ IV (06:04)
[2022-01-19 06:08] LABS: Alanine Aminotransferase 33 IU/L (<35); Albumin 4.9 g/dL (3.5-5.0); Albumin Globulin Ratio 1.2 (1.0-2.8); Alkaline Phosphatase 77 U/L (38-126); Aspartate Aminotransferase 32 IU/L (14-36); Bilirubin Total 0.8 mg/dL (0.2-1.3); Blood Urea Nitrogen 14 mg/dL (7-17); Calcium 9.9 mg/dL (8.4-10.2); Carbon Dioxide 21 mmol/L (22-32); Chloride 102 mmol/L (98-107); Estimated Glomerular Filt Rate > 60 mL/min (>60); Glucose 141 mg/dL (70-100); HEMOLYSIS 27 (0-50); Lipase 35 U/L (23-300); Potassium 3.6 mmol/L (3.4-5.1); Sodium 135 mmol/L (137-145); Total Protein 8.9 g/dL (6.3-8.2)
[2022-01-19] MEDS: METOCLOPRAMIDE 10 MG/2 ML INJ IV (07:02)
[2022-01-19] MEDS: LORazepam 2 MG/ML INJ 0.5 MG IV (07:55)
[2022-01-19] MEDS: KETOROLAC 30 MG/ML VIAL IV (07:55)
[2022-01-19 09:00] LABS: Lactate (Lactic Acid) 1.5 mmol/L (0.7-2.1)
[2022-01-19 09:09] LABS: COVID-19 CEPHEID 4-PLEX PCR Negative (Negative); Influenza A - CEPHEID Flu A NEGATIVE (NEGATIVE); Influenza B - CEPHEID Flu B NEGATIVE (NEGATIVE); Respiratory Syncytial Virus Negative (Negative)
[2022-01-19 09:11] LABS: Bacteria Urine Occasional (0-1); Culture Indicated Urine Cult Not Indicated; RBC Urine None Seen (0-5/HPF); Squamous Epithelial Cell Urine 0-1 /HPF (0-5/HPF); WBC Urine 0-1/HPF (0-5/HPF)
[2022-01-19 09:38] LABS: Reflexed Lactate in 2 Hours Y
--- NOTE | 2022-01-19 10:31 | DI.US.S_ITS ---
PROCEDURE: US ABDOMEN LIMITED INDICATIONS: ABDOMINAL PAIN TECHNIQUE: Real-time scanning was performed of the abdominal and retroperitoneal organs, with image documentation. COMPARISON: [facility], CT, CT ABDOMEN PELVIS W CON, 01/19/2022, 6:29. FINDINGS: Liver: Liver is normal in size and homogeneous in echotexture. Gallbladder: No stones. Wall thickening is normal measuring 1.4 mm. Biliary ducts: Not well seen. Pancreas: Visualized portions of the pancreas are sonographically normal. Spleen: Spleen is normal in size and homogeneous in echotexture. Kidneys: Trace right pelviocaliectasis. IMPRESSION: Gallbladder is unremarkable. Dictated by: Keira Bennett M.D. on 01/19/2022 at 12:22 Approved by: Keira Bennett M.D. on 01/19/2022 at 12:24
[2022-01-19] MEDS: LABETALOL 20 MG/4 ML SYRINGE 10 MG IV ×2 (11:02→12:14)
[2022-01-19] MEDS: PIPERACILLIN/TAZO 4.5 GM in SODIUM CHLORIDE 0.9% 100 ML IV (11:03)
[2022-01-19 11:20] LABS: Creatine Kinase 111 U/L (30-135)
[2022-01-19] MEDS: SODIUM CHLORIDE 0.9% 1,000 ML 100 ML IV ×2 (11:28→18:16)
[2022-01-19 11:35] LABS: CKMB % Relative Index 2.2 % (1.5-5.0); Creatine Kinase MB 2.48 ng/mL (<2.37)
[2022-01-19 11:44] LABS: Magnesium 1.4 mg/dL (1.6-2.3)
--- NOTE | 2022-01-19 12:01 | DI.ECHO.S_ITS ---
[place] [facility]---------+ [facility] +---------+ : : [address] : [address] : : : : [id number] : : : : Phone: [phone]+ Echocardiogram Report + + :Name: MARLENE KING Study Date: 01/19/2022 Height: 61 in : :[facility] ReadingLocation: Weight: 151 lb : : Gender: Female BSA: 1.7 m2 : :: 1965 Age: 56 yrs BP: 173/79 mmHg: :Reason For Study: ELEVATED TROPONINS : :Ordering Physician: GIORGIO, : :AMY Garza D.O. Performed By: Sherice Guerra : :Referring: AMY ALVARES D.O : + + Interpretation Summary The left ventricle is normal in size and wall thickness. Left ventricular systolic function appears normal without focal wall motion abnormalities. The ejection fraction is estimated to be 60-65%. Diastolic parameters suggest probable normal left ventricular diastolic function and normal filling pressures. The right ventricle is normal in size and function. The left atrial size is normal. Right atrial size is normal. There is no significant valvular heart disease. The aortic root is normal size. Procedure: A two-dimensional transthoracic echocardiogram with color flow and Doppler was performed. The study quality was technically adequate. There is no prior echocardiogram noted for this patient. The patient was in sinus rhythm with heart rates between 75-88 bpm during the exam. Left Ventricle: The left ventricle is normal in size and wall thickness. Left ventricular systolic function appears normal without focal wall motion abnormalities. The ejection fraction is estimated to be 60-65%. Diastolic parameters suggest probable normal left ventricular diastolic function and normal filling pressures. Right Ventricle: The right ventricle is normal in size and function. Atria: The left atrial size is normal. Right atrial size is normal. There is no Doppler evidence for an interatrial shunt. Mitral Valve: There is a flat closure plane of the the mitral valve leaflets. There is trace mitral regurgitation. Aortic Valve: The aortic valve is trileaflet. The aortic valve opens well. There is no aortic valve stenosis. No aortic regurgitation is present. Tricuspid Valve: The tricuspid valve is normal in structure and function. There is a trace or physiologic amount of tricuspid regurgitation. Pulmonic Valve: The pulmonic valve is not well visualized. There is no pulmonic valvular regurgitation. There is no significant valvular heart disease. Great Vessels: The aortic root is normal size. The dimensions of the ascending aorta are normal. The IVC is of normal diameter and collapses greater than 50% with a sniff. This suggests a low right atrial pressure of 3 mm Hg. Pericardium/ Pleura There is no pericardial effusion. There is no pleural effusion. MMode/2D Measurements & Calculations LVIDd: 4.4 cm LVOT diam: 2.2 cm LVIDs: 2.9 cm Ao root diam: 2.8 cm FS: 33.8 % asc Aorta Diam: 3.2 cm EPSS: 0.60 cm Ao Arch Diam (Prox Trans): 2.9 cm IVSd: 0.68 cm LVPWd: 0.70 cm LV rico. diameter/BSA (cm/m^2): 2.6 LV sys. diameter/BSA (cm/m^2): 1.7 LA A2 area: 18.5 cm2 RA long axis: 4.6 cm LA A4 area: 13.2 cm2 RA area: 11.8 cm2 LA length (vol): 4.7 cm RA vol: 25.7 ml LA vol: 44.1 ml RA : 15.3 ml/m2 LA vol index: 26.3 ml/m2 IVC diam: 0.74 cm RVD1 (basal): 3.3 cm RVD2 (mid): 2.7 cm TAPSE: 2.5 cm Doppler Measurements & Calculations Ao V2 max: 150.3 cm/sec LVOT Max Alok: 102.4 cm/sec Ao V2 mean: 98.6 cm/sec LV V1 max P.2 mmHg Ao max P.0 mmHg LV V1 VTI: 22.0 cm Ao mean P.4 mmHg [place](I,D): 2.7 cm2 Ao V2 VTI: 30.0 cm [place](V,D): 2.5 cm2 sev ratio: 0.73 [place] indexed to BSA (cm^2/m^2): 1.6 MV E max alok: 85.1 cm/sec PA V2 max: 94.5 cm/sec MV A max alok: 90.7 cm/sec PA V2 mean: 63.6 cm/sec MV E/A: 0.94 PA mean P.8 mmHg Med Peak E' Alok: 6.8 cm/sec PA pr(Accel): 34.5 mmHg E/E' med: 12.5 Lat Peak E' Alok: 10.7 cm/sec E/E' lat: 7.9 E/e' average: 10.2 MV dec time: 0.19 sec SV(LVOT): 81.9 ml Reading Physician:03:04 PM
[2022-01-19] MEDS: MAGNESIUM SULFATE 4 GM/100 ML PIGGYBACK IV (12:17)
[2022-01-19 12:21] LABS: Adenovirus Not Detected (Not Detect); B. parapertussis Not Detected (Not Detecte); Bordetella pertussis Not Detected (Not Detecte); Chlamydophila pneumoniae Not Detected (Not Detect); Coronavirus 229E Not Detected (Not Detect); Coronavirus HKU1 Not Detected (Not Detect); Coronavirus NL 63 Not Detected (Not Detect); Coronavirus OC43 Not Detected (Not Detect); Human Metapneumovirus Not Detected (Not Detect); Human Rhinovirus/Enterovirus Not Detected (Not Detect); Influenza A Not Detected (Not Detect); Influenza B Not Detected (Not Detect); Mycoplasma pneumoniae Not Detected (Not Detect); Parainfluenza Virus 1 Not Detected (Not Detect); Parainfluenza Virus 2 Not Detected (Not Detect); Parainfluenza Virus 3 Not Detected (Not Detect); Parainfluenza Virus 4 Not Detected (Not Detect); Respiratory Syncytial Virus Not Detected (Not Detect); SARS- CoV-2 Not Detected (Not Detecte)
[2022-01-19 12:23] LABS: TSH w/ Reflex to FT4 0.43 uIU/mL (0.47-4.68)
[2022-01-19] MEDS: PROCHLORPERAZINE 10 MG/2 ML VIAL IV (12:48)
[2022-01-19] MEDS: ASPIRIN 81 MG CHEW TAB 324 MG PO (13:37)
[2022-01-19] MEDS: NITROGLYCERIN 0.4 MG SL TAB SL (13:41)
[2022-01-19 13:53] LABS: INR 1.1 (0.9-1.3); Prothrombin Time 12.7 SECONDS (10.1-12.7)
[2022-01-19 13:56] LABS: D Dimer 6282 ng/ml (<500); PTT Partial Thromboplastin Tim 27 SECONDS (26-36)
--- NOTE | 2022-01-19 14:00 | DI.CT.S_ITS ---
PROCEDURE: CT ANGIO CHEST ABDOMEN PELVIS INDICATIONS: dissection protocol, epigastric pain, + trop TECHNIQUE: Precontrast 5 mm thick sections acquired from the lung apices to the iliac crests. After the administration of intravenous contrast, 2.5 mm thick sections again acquired from the lung apices to the iliac crests. Maximum intensity projection (MIP) oblique sagittal and coronal reformats were then acquired. For radiation dose reduction, the following was used: automated exposure control. COMPARISON: [facility], CT, CT ABDOMEN PELVIS W CON, 08/15/2019, 15:02. [facility], CT, CT ABDOMEN PELVIS W CON, 01/19/2022, 6:29. FINDINGS: Image quality: Excellent. AORTA: The aorta demonstrates normal course and caliber. No aneurysmal dilatation, dissection, periaortic fat stranding or wall thickening. No aortic stenosis. CHEST: Lungs and pleura: No acute airspace opacities. No pleural effusions or pneumothorax. Central and peripheral airways are patent and normal in caliber. Mediastinum: Heart size is normal. No pericardial effusion. No mediastinal or hilar adenopathy by size criteria. Central pulmonary arteries are normal in size. Esophagus is normal in caliber. No hiatal hernias. Bones and chest wall: No axillary adenopathy by size criteria. Thyroid gland is unremarkable. No suspicious bony lesions. No vertebral body compression fractures. ABDOMEN: Vasculature: Celiac trunk and mesenteric arteries are patent. Renal arteries are also patent. Solid organs: Liver is normal in size and overall enhancement. An 8 mm in diameter hypervascular lesion is noted within the right hepatic lobe suggesting the presence of a small hepatic hemangioma (series 5/image 130). Gallbladder is unremarkable. Biliary system is non dilated. Pancreas enhances normally. Spleen is normal in size and enhancement. No adrenal nodules. Both kidneys are normal in size and enhancement, without hydronephrosis. 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 Peritoneum and bowel: No free fluid or air. Bowel loops are normal in caliber and wall thickness where visualized in the absence of oral contrast. The appendix is not visualized; however there is no discrete right lower quadrant fluid or fat stranding to suggest acute appendicitis. Nodes and vessels: No retroperitoneal or mesenteric adenopathy by size criteria. Inferior vena cava is normal in morphology. Miscellaneous: No ventral hernias. PELVIS: Genitourinary: Bladder wall thickness is normal. Miscellaneous: No inguinal hernias or adenopathy. No ventral hernias. Bones: No suspicious bony lesions. No vertebral body compression fractures. IMPRESSION: 1. No aortic dissection, stenosis, aneurysmal dilatation, or findings to suggest aortitis. 2. No acute thoracic or intra-abdominal findings. 3. Probable subcentimeter right hepatic hemangioma. If further characterization is warranted, nonemergent hepatic ultrasound could be used. Dictated by: Farheen Le M.D. on 01/19/2022 at 14:45 Approved by: Farheen Le M.D. on 01/19/2022 at 14:54
[2022-01-19 14:15] LABS: Troponin I 0.765 ng/mL (0.01-0.034)
[2022-01-19 15:24] LABS: Free T4, Direct Thyroxine 1.02 ng/dL (0.78-2.19)
[2022-01-19] MEDS: HEPARIN DRIP 25,000 UNIT/500 ML IV.SOLN 16.982 UNIT IV (15:56)
--- NOTE | 2022-01-19 17:00 | PM.HP.1 ---
History of Present Illness History of Present Illness Date Patient Seen: 01/19/22 Time Patient Seen: 17:00 Chief complaint: N/V x1day Narrative: May Martinez in a 56yo F with PMH of prior CVA, back surgery with SI fusion, hypothyroidism, total hysterectomy, and appendectomy who presents with 1 day of acute intractable NV, generalized abd pain and malaise. Patient History Medical History Arthritis Bitten by raccoon, initial encounter Hematoma of arm History of stroke Hypothyroidism Osteoarthritis of lumbar spine Radial head fracture, closed Sciatica Surgical History History of back surgery (2015) History of History of removal of ovarian cyst Hx of appendectomy Hx of dilation and curettage (1993) Hx of total hysterectomy (2009) Family & Social History Social History: household members spouse,family,children Prior Living Arrangements House Safety & Behavioral: Feels Safe in Current Yes Environment Been Physically Hurt or No Threatened By a Person Tobacco & Substance use: Smoking Status Never smoker alcohol intake former alcohol intake frequency 0-2 drinks per day Substance Use Type does not use Meds Home Medications and Allergies Home Medications Medication Instructions Recorded Confirmed Type thyroid (pork) 97.5 mg tablet 97.5 mg PO DAILY #0 tabs 12/15/12 01/19/22 History (Nature-Throid) buprenorphine 5 mcg/hour weekly 1 patch transdermal Q7D Chronic 12/17/19 01/19/22 History transdermal patch (Butrans) pain sertraline 100 mg tablet 50 mg PO DAILY 12/17/19 01/19/22 History tizanidine 4 mg capsule 4 mg PO BEDTIME PRN Muscle Spasm 12/17/19 01/19/22 History acetaminophen 325 mg tablet 650 mg PO Q6HR PRN Pain, Mild 12/26/19 01/19/22 Rx (1-3) #60 tabs hydromorphone 2 mg tablet 2 mg PO Q3H PRN Pain, Severe 12/26/19 01/19/22 Rx (7-10) #60 tabs phenazopyridine 100 mg tablet 100 mg PO TID PRN pain 6 doses #6 01/02/22 01/19/22 Rx (Pyridium) tabs Allergies Allergy/AdvReac Type Severity Reaction Status Date / Time erythromycin base AdvReac Severe Gastrointestinal Verified 01/19/22 07:39 [ERYTHROMYCIN BASE] Upset Review of Systems Review of Systems Narrative: All other systems reviewed with the patient and are negative unless otherwise stated. Exam Vital Signs (past 8 hours): - 01/19/22 09:15 01/19/22 09:31 01/19/22 09:45 Temperature Pulse Rate Respiratory Rate Blood Pressure 187/83 H 199/96 H 201/90 H Pulse Oximetry Oxygen Delivery Method 01/19/22 10:01 01/19/22 10:52 01/19/22 10:54 Temperature 98.6 F Pulse Rate 105 H 102 H Respiratory Rate 22 19 Blood Pressure 219/106 H Pulse Oximetry Oxygen Delivery Method 01/19/22 10:54 01/19/22 11:02 01/19/22 11:00 Temperature Pulse Rate 105 H Respiratory Rate Blood Pressure 229/103 H 213/105 H 213/105 H Pulse Oximetry Oxygen Delivery Method 01/19/22 11:00 01/19/22 11:11 01/19/22 11:11 Temperature Pulse Rate 100 H 89 Respiratory Rate 29 H 26 H Blood Pressure 204/104 H Pulse Oximetry Oxygen Delivery Method 01/19/22 11:15 01/19/22 11:15 01/19/22 11:30 Temperature Pulse Rate 87 Respiratory Rate 27 H Blood Pressure 192/96 H 198/98 H Pulse Oximetry 98 Oxygen Delivery Method 01/19/22 11:30 01/19/22 12:14 01/19/22 11:45 Temperature Pulse Rate 88 85 Respiratory Rate 26 H Blood Pressure 197/97 H 194/95 H Pulse Oximetry 99 Oxygen Delivery Method Room Air 01/19/22 11:45 01/19/22 12:00 01/19/22 12:00 Temperature Pulse Rate 86 87 Respiratory Rate 25 H 35 H Blood Pressure 211/100 H Pulse Oximetry 98 99 Oxygen Delivery Method 01/19/22 12:15 01/19/22 12:15 01/19/22 12:30 Temperature Pulse Rate 88 Respiratory Rate 19 Blood Pressure 197/97 H 185/88 H Pulse Oximetry 99 Oxygen Delivery Method 01/19/22 12:30 01/19/22 13:41 01/19/22 12:45 Temperature Pulse Rate 84 97 H Respiratory Rate 14 Blood Pressure 200/95 H 183/88 H Pulse Oximetry 97 Oxygen Delivery Method 01/19/22 12:45 01/19/22 13:00 01/19/22 13:00 Temperature Pulse Rate 85 85 Respiratory Rate 19 Blood Pressure 173/79 H Pulse Oximetry 98 98 Oxygen Delivery Method Room Air Room Air 01/19/22 13:15 01/19/22 13:16 01/19/22 13:16 Temperature Pulse Rate 81 81 Respiratory Rate 25 H Blood Pressure 187/80 H Pulse Oximetry 98 98 Oxygen Delivery Method Room Air 01/19/22 13:30 01/19/22 13:30 01/19/22 13:40 Temperature Pulse Rate 85 89 Respiratory Rate 26 H 24 Blood Pressure 186/84 H Pulse Oximetry 95 96 Oxygen Delivery Method Room Air 01/19/22 13:41 01/19/22 13:41 01/19/22 13:44 Temperature Pulse Rate 90 102 H Respiratory Rate 21 22 Blood Pressure 200/95 H Pulse Oximetry 97 95 Oxygen Delivery Method Room Air Room Air 01/19/22 13:45 01/19/22 13:45 01/19/22 14:00 Temperature Pulse Rate 100 H Respiratory Rate 22 Blood Pressure 157/78 H 175/84 H Pulse Oximetry 94 Oxygen Delivery Method Room Air 01/19/22 14:00 Temperature Pulse Rate 89 Respiratory Rate 22 Blood Pressure Pulse Oximetry 97 Oxygen Delivery Method Oxygen Delivery Method Room Air Narrative Exam Narrative: GEN: mild distress, ill-appearing and fatigued HEENT: moist mucous membranes, PERRL NECK: trachea midline, no JVD CV: regular rate and rhythm, no murmurs PULM: clear bilaterally ABD: soft, nontender, nondistended, no organomegaly EXT: warm and well perfused with no edema NEURO: awake, alert, oriented, no focal deficits Objective Labs Result Diagrams: 01/19/22 05:45 01/19/22 05:45 Labs: Laboratory Results - last 24 hr 01/19/22 01/19/22 01/19/22 05:45 05:45 05:45 WBC 24.3 H RBC 4.53 Hgb 13.6 Hct 40.8 MCV 90.0 MCH 30.1 MCHC 33.4 RDW 12.8 Plt Count 357 Neut % (Auto) 94.1 H Lymph % (Auto) 2.9 L Mobile % (Auto) 2.7 L Eos % (Auto) 0.0 L Baso % (Auto) 0.3 Neut # (Auto) 36102 H Lymph # (Auto) 700 L Mobile # (Auto) 700 Eos # (Auto) 0 Baso # (Auto) 100 PT INR APTT D-Dimer Sodium 135 L Potassium 3.6 Chloride 102 Carbon Dioxide 21 L BUN 14 Creatinine 0.56 Estimated GFR > 60 BUN/Creatinine Ratio 25.0 H Glucose 141 H Lactate 3.0 H Calcium 9.9 Magnesium Total Bilirubin 0.8 AST 32 ALT 33 Alkaline Phosphatase 77 Total Creatine Kinase CK-MB (CK-2) CK-MB (CK-2) Rel Index Troponin I Total Protein 8.9 H Albumin 4.9 Globulin 4.0 Albumin/Globulin Ratio 1.2 Lipase 35 TSH Free T4 Urine RBC Urine WBC Ur Squamous Epith Cells Urine Bacteria Ur Culture Indicated? Chlamy pneumoniae PCR Adenovirus (PCR) B. pertussis DNA (PCR) B.parapertussis DNA PCR Coronavirus OC43 (PCR) Coronavirus HKU1 (PCR) Coronavirus 229E (PCR) SARS-CoV-2 (PCR) Coronavirus NL63 (PCR) Human Metapneumovir PCR Influenza A (RT-PCR) Influenza Type A (PCR) Influenza B (RT-PCR) Influenza Type B (PCR) M. pneumoniae (PCR) Parainfluenza 1 (PCR) Parainfluenza 2 (PCR) Parainfluenza 3 (PCR) Parainfluenza 4 (PCR) RSV (PCR) Entero/Rhino (PCR) 01/19/22 01/19/22 01/19/22 06:54 08:00 08:01 WBC RBC Hgb Hct MCV MCH MCHC RDW Plt Count Neut % (Auto) Lymph % (Auto) Mobile % (Auto) Eos % (Auto) Baso % (Auto) Neut # (Auto) Lymph # (Auto) Mobile # (Auto) Eos # (Auto) Baso # (Auto) PT INR APTT D-Dimer Sodium Potassium Chloride Carbon Dioxide BUN Creatinine Estimated GFR BUN/Creatinine Ratio Glucose Lactate Calcium Magnesium Total Bilirubin AST ALT Alkaline Phosphatase Total Creatine Kinase CK-MB (CK-2) CK-MB (CK-2) Rel Index Troponin I Total Protein Albumin Globulin Albumin/Globulin Ratio Lipase TSH Free T4 Urine RBC None seen Urine WBC 0-1/hpf Ur Squamous Epith Cells 0-1 /hpf D Urine Bacteria Occasional (0-1) Ur Culture Indicated? Cult not indicated Chlamy pneumoniae PCR Not detected Adenovirus (PCR) Not detected B. pertussis DNA (PCR) Not detected B.parapertussis DNA PCR Not detected Coronavirus OC43 (PCR) Not detected Coronavirus HKU1 (PCR) Not detected Coronavirus 229E (PCR) Not detected SARS-CoV-2 (PCR) Not detected Negative Coronavirus NL63 (PCR) Not detected Human Metapneumovir PCR Not detected Influenza A (RT-PCR) Flu a negative Influenza Type A (PCR) Not detected Influenza B (RT-PCR) Flu b negative Influenza Type B (PCR) Not detected M. pneumoniae (PCR) Not detected Parainfluenza 1 (PCR) Not detected Parainfluenza 2 (PCR) Not detected Parainfluenza 3 (PCR) Not detected Parainfluenza 4 (PCR) Not detected RSV (PCR) Not detected Negative Entero/Rhino (PCR) Not detected 01/19/22 01/19/22 01/19/22 08:45 10:59 10:59 WBC RBC Hgb Hct MCV MCH MCHC RDW Plt Count Neut % (Auto) Lymph % (Auto) Mobile % (Auto) Eos % (Auto) Baso % (Auto) Neut # (Auto) Lymph # (Auto) Mobile # (Auto) Eos # (Auto) Baso # (Auto) PT INR APTT D-Dimer Sodium Potassium Chloride Carbon Dioxide BUN Creatinine Estimated GFR BUN/Creatinine Ratio Glucose Lactate 1.5 Calcium Magnesium 1.4 L Total Bilirubin AST ALT Alkaline Phosphatase Total Creatine Kinase 111 CK-MB (CK-2) 2.48 H CK-MB (CK-2) Rel Index 2.2 Troponin I 0.400 H* Total Protein Albumin Globulin Albumin/Globulin Ratio Lipase TSH Free T4 Urine RBC Urine WBC Ur Squamous Epith Cells Urine Bacteria Ur Culture Indicated? Chlamy pneumoniae PCR Adenovirus (PCR) B. pertussis DNA (PCR) B.parapertussis DNA PCR Coronavirus OC43 (PCR) Coronavirus HKU1 (PCR) Coronavirus 229E (PCR) SARS-CoV-2 (PCR) Coronavirus NL63 (PCR) Human Metapneumovir PCR Influenza A (RT-PCR) Influenza Type A (PCR) Influenza B (RT-PCR) Influenza Type B (PCR) M. pneumoniae (PCR) Parainfluenza 1 (PCR) Parainfluenza 2 (PCR) Parainfluenza 3 (PCR) Parainfluenza 4 (PCR) RSV (PCR) Entero/Rhino (PCR) 01/19/22 01/19/22 01/19/22 10:59 13:34 13:34 WBC RBC Hgb Hct MCV MCH MCHC RDW Plt Count Neut % (Auto) Lymph % (Auto) Mobile % (Auto) Eos % (Auto) Baso % (Auto) Neut # (Auto) Lymph # (Auto) Mobile # (Auto) Eos # (Auto) Baso # (Auto) PT INR APTT D-Dimer 6282 H Sodium Potassium Chloride Carbon Dioxide BUN Creatinine Estimated GFR BUN/Creatinine Ratio Glucose Lactate Calcium Magnesium Total Bilirubin AST ALT Alkaline Phosphatase Total Creatine Kinase CK-MB (CK-2) CK-MB (CK-2) Rel Index Troponin I 0.765 H* Total Protein Albumin Globulin Albumin/Globulin Ratio Lipase TSH 0.43 L Free T4 1.02 Urine RBC Urine WBC Ur Squamous Epith Cells Urine Bacteria Ur Culture Indicated? Chlamy pneumoniae PCR Adenovirus (PCR) B. pertussis DNA (PCR) B.parapertussis DNA PCR Coronavirus OC43 (PCR) Coronavirus HKU1 (PCR) Coronavirus 229E (PCR) SARS-CoV-2 (PCR) Coronavirus NL63 (PCR) Human Metapneumovir PCR Influenza A (RT-PCR) Influenza Type A (PCR) Influenza B (RT-PCR) Influenza Type B (PCR) M. pneumoniae (PCR) Parainfluenza 1 (PCR) Parainfluenza 2 (PCR) Parainfluenza 3 (PCR) Parainfluenza 4 (PCR) RSV (PCR) Entero/Rhino (PCR) 01/19/22 13:34 WBC RBC Hgb Hct MCV MCH MCHC RDW Plt Count Neut % (Auto) Lymph % (Auto) Mobile % (Auto) Eos % (Auto) Baso % (Auto) Neut # (Auto) Lymph # (Auto) Mobile # (Auto) Eos # (Auto) Baso # (Auto) PT 12.7 INR 1.1 APTT 27 D-Dimer Sodium Potassium Chloride Carbon Dioxide BUN Creatinine Estimated GFR BUN/Creatinine Ratio Glucose Lactate Calcium Magnesium Total Bilirubin AST ALT Alkaline Phosphatase Total Creatine Kinase CK-MB (CK-2) CK-MB (CK-2) Rel Index Troponin I Total Protein Albumin Globulin Albumin/Globulin Ratio Lipase TSH Free T4 Urine RBC Urine WBC Ur Squamous Epith Cells Urine Bacteria Ur Culture Indicated? Chlamy pneumoniae PCR Adenovirus (PCR) B. pertussis DNA (PCR) B.parapertussis DNA PCR Coronavirus OC43 (PCR) Coronavirus HKU1 (PCR) Coronavirus 229E (PCR) SARS-CoV-2 (PCR) Coronavirus NL63 (PCR) Human Metapneumovir PCR Influenza A (RT-PCR) Influenza Type A (PCR) Influenza B (RT-PCR) Influenza Type B (PCR) M. pneumoniae (PCR) Parainfluenza 1 (PCR) Parainfluenza 2 (PCR) Parainfluenza 3 (PCR) Parainfluenza 4 (PCR) RSV (PCR) Entero/Rhino (PCR) Assessment & Plan Assessment & Plan narrative: # acute abd pain, leukocytosis and nausea vomiting -suspect viral gastroenteritis as patient had some diarrhea at home, CT angio abdomen pelvis did not find source of abdominal pain, no PE or dissection -CXR and UA normal, CRP and ESR pending, Dimer 6282 -resp PCR, not having current diarrhea to check stool PCR -continue Zosyn -f/u blood cultures -f/u procal -continue antiemetics PRN -dilaudid PRN # NSTEMI vs myocardial demand ischemia -troponin 0.4>0.765, no CP or EKG changes -cardiology called and felt it was likely demand ischemia and to get echo -start heparin drip given concern for NSTEMI -echo reassuring with EF 60-65% and no focal WMA's -continue heparin x48 hrs -if troponins continue to rise consider transferring for cardiology consult for possible myocarditis vs heart cath # hypothyroidism, chronic -continue home thyroid medication -TSH decreased at 0.43 but T4 normal at 1.03 # chronic pain -continue home Dilaudid 2mg q3h p.o. as needed once able to tolerate orals, use IV Dilaudid in the meantime # depression, chronic -continue home sertraline Code status is full. COVID negative. DVT prophylaxis with SCDs. Proxy is Tobin. I have reviewed home meds and used all available resources to reconcile the home meds. This patient will be admitted as inpatient and will require greater than 2 midnights of hospital time to treat NSTEMI, abd pain and NV. Time Spent With Patient Critical Care time: I spent a total of [] minutes of critical care time on this patient's care today; this time is exclusive of procedural time. Quality VTE Deep Vein Thrombosis/Pulmonary Embolism Present on Admission: No
[2022-01-19] MEDS: HYDROMORPHONE 0.5 MG INJ IV (17:03)
[2022-01-19 17:25] LABS: C-Reactive Protein Quant 1.8 mg/dL (<1.0)
[2022-01-19 17:37] LABS: Creatine Kinase 171 U/L (30-135)
--- NOTE | 2022-01-19 17:37 | PM.HP.1 ---
History of Present Illness History of Present Illness Date Patient Seen: 01/19/22 Time Patient Seen: 17:38 Chief complaint: N/V x1day Narrative: May Martinez in a 56yo F with PMH of Campylobacter, prior CVA, back surgery with SI fusion, hypothyroidism, total hysterectomy, and appendectomy who presents with 1 day of acute intractable NV, generalized abd pain and malaise. Patient states she was in her normal state of health until last night she had sudden onset abdominal pain, cramping and some diarrhea. She then had intractable nausea and vomiting so the night she states she feels very weak and sick. Denies any chest pain. She did not eat out or have any foods of her normal routine yesterday. She denies respiratory symptoms. She had history of Campylobacter although had diarrhea with that. She does not have any current diarrhea. She also had a recent UTI which was treated previously and denies current dysuria. Patient History Medical History Arthritis Bitten by joyon, initial encounter Hematoma of arm History of stroke Hypothyroidism Osteoarthritis of lumbar spine Radial head fracture, closed Sciatica Surgical History History of back surgery (2015) History of History of removal of ovarian cyst Hx of appendectomy Hx of dilation and curettage (1993) Hx of total hysterectomy (2009) Family & Social History Social History: household members spouse,family,children Prior Living Arrangements House Safety & Behavioral: Feels Safe in Current Yes Environment Been Physically Hurt or No Threatened By a Person Tobacco & Substance use: Smoking Status Never smoker alcohol intake former alcohol intake frequency 0-2 drinks per day Substance Use Type does not use Meds Home Medications and Allergies Home Medications Medication Instructions Recorded Confirmed Type thyroid (pork) 97.5 mg tablet 97.5 mg PO DAILY #0 tabs 12/15/12 01/19/22 History (Nature-Throid) buprenorphine 5 mcg/hour weekly 1 patch transdermal Q7D Chronic 12/17/19 01/19/22 History transdermal patch (Butrans) pain sertraline 100 mg tablet 50 mg PO DAILY 12/17/19 01/19/22 History tizanidine 4 mg capsule 4 mg PO BEDTIME PRN Muscle Spasm 12/17/19 01/19/22 History acetaminophen 325 mg tablet 650 mg PO Q6HR PRN Pain, Mild 12/26/19 01/19/22 Rx (1-3) #60 tabs hydromorphone 2 mg tablet 2 mg PO Q3H PRN Pain, Severe 12/26/19 01/19/22 Rx (7-10) #60 tabs phenazopyridine 100 mg tablet 100 mg PO TID PRN pain 6 doses #6 01/02/22 01/19/22 Rx (Pyridium) tabs Allergies Allergy/AdvReac Type Severity Reaction Status Date / Time erythromycin base AdvReac Severe Gastrointestinal Verified 01/19/22 07:39 [ERYTHROMYCIN BASE] Upset Review of Systems Review of Systems Narrative: All other systems reviewed with the patient and are negative unless otherwise stated. Exam Vital Signs (past 8 hours): - 01/19/22 09:45 01/19/22 10:01 01/19/22 10:52 Temperature Pulse Rate 105 H Respiratory Rate 22 Blood Pressure 201/90 H 219/106 H Pulse Oximetry Oxygen Delivery Method 01/19/22 10:54 01/19/22 10:54 01/19/22 11:02 Temperature 98.6 F Pulse Rate 102 H 105 H Respiratory Rate 19 Blood Pressure 229/103 H 213/105 H Pulse Oximetry Oxygen Delivery Method 01/19/22 11:00 01/19/22 11:00 01/19/22 11:11 Temperature Pulse Rate 100 H Respiratory Rate 29 H Blood Pressure 213/105 H 204/104 H Pulse Oximetry Oxygen Delivery Method 01/19/22 11:11 01/19/22 11:15 01/19/22 11:15 Temperature Pulse Rate 89 87 Respiratory Rate 26 H 27 H Blood Pressure 192/96 H Pulse Oximetry 98 Oxygen Delivery Method 01/19/22 11:30 01/19/22 11:30 01/19/22 12:14 Temperature Pulse Rate 88 85 Respiratory Rate 26 H Blood Pressure 198/98 H 197/97 H Pulse Oximetry 99 Oxygen Delivery Method Room Air 01/19/22 11:45 01/19/22 11:45 01/19/22 12:00 Temperature Pulse Rate 86 Respiratory Rate 25 H Blood Pressure 194/95 H 211/100 H Pulse Oximetry 98 Oxygen Delivery Method 01/19/22 12:00 01/19/22 12:15 01/19/22 12:15 Temperature Pulse Rate 87 88 Respiratory Rate 35 H 19 Blood Pressure 197/97 H Pulse Oximetry 99 99 Oxygen Delivery Method 01/19/22 12:30 01/19/22 12:30 01/19/22 13:41 Temperature Pulse Rate 84 97 H Respiratory Rate 14 Blood Pressure 185/88 H 200/95 H Pulse Oximetry 97 Oxygen Delivery Method 01/19/22 12:45 01/19/22 12:45 01/19/22 13:00 Temperature Pulse Rate 85 Respiratory Rate 19 Blood Pressure 183/88 H 173/79 H Pulse Oximetry 98 Oxygen Delivery Method Room Air 01/19/22 13:00 01/19/22 13:15 01/19/22 13:16 Temperature Pulse Rate 85 81 81 Respiratory Rate 25 H Blood Pressure Pulse Oximetry 98 98 98 Oxygen Delivery Method Room Air Room Air 01/19/22 13:16 01/19/22 13:30 01/19/22 13:30 Temperature Pulse Rate 85 Respiratory Rate 26 H Blood Pressure 187/80 H 186/84 H Pulse Oximetry 95 Oxygen Delivery Method 01/19/22 13:40 01/19/22 13:41 01/19/22 13:41 Temperature Pulse Rate 89 90 Respiratory Rate 24 21 Blood Pressure 200/95 H Pulse Oximetry 96 97 Oxygen Delivery Method Room Air Room Air 01/19/22 13:44 01/19/22 13:45 01/19/22 13:45 Temperature Pulse Rate 102 H 100 H Respiratory Rate 22 22 Blood Pressure 157/78 H Pulse Oximetry 95 94 Oxygen Delivery Method Room Air Room Air 01/19/22 14:00 01/19/22 14:00 Temperature Pulse Rate 89 Respiratory Rate 22 Blood Pressure 175/84 H Pulse Oximetry 97 Oxygen Delivery Method Oxygen Delivery Method Room Air Narrative Exam Narrative: GEN: no acute distress, appears ill HEENT: moist mucous membranes, PERRL NECK: trachea midline, no JVD CV: regular rate and rhythm, no murmurs PULM: clear bilaterally ABD: soft, tenderness to lower quadrants, nondistended, no organomegaly EXT: warm and well perfused with no edema NEURO: awake, alert, oriented, no focal deficits Objective Labs Result Diagrams: 01/19/22 05:45 01/19/22 05:45 Labs: Laboratory Results - last 24 hr 01/19/22 01/19/22 01/19/22 05:45 05:45 05:45 WBC 24.3 H RBC 4.53 Hgb 13.6 Hct 40.8 MCV 90.0 MCH 30.1 MCHC 33.4 RDW 12.8 Plt Count 357 Neut % (Auto) 94.1 H Lymph % (Auto) 2.9 L [place] % (Auto) 2.7 L Eos % (Auto) 0.0 L Baso % (Auto) 0.3 Neut # (Auto) 56847 H Lymph # (Auto) 700 L [place] # (Auto) 700 Eos # (Auto) 0 Baso # (Auto) 100 PT INR APTT D-Dimer Sodium 135 L Potassium 3.6 Chloride 102 Carbon Dioxide 21 L BUN 14 Creatinine 0.56 Estimated GFR > 60 BUN/Creatinine Ratio 25.0 H Glucose 141 H Lactate 3.0 H Calcium 9.9 Magnesium Total Bilirubin 0.8 AST 32 ALT 33 Alkaline Phosphatase 77 Total Creatine Kinase CK-MB (CK-2) CK-MB (CK-2) Rel Index Troponin I C-Reactive Protein Total Protein 8.9 H Albumin 4.9 Globulin 4.0 Albumin/Globulin Ratio 1.2 Lipase 35 TSH Free T4 Urine RBC Urine WBC Ur Squamous Epith Cells Urine Bacteria Ur Culture Indicated? Chlamy pneumoniae PCR Adenovirus (PCR) B. pertussis DNA (PCR) B.parapertussis DNA PCR Coronavirus OC43 (PCR) Coronavirus HKU1 (PCR) Coronavirus 229E (PCR) SARS-CoV-2 (PCR) Coronavirus NL63 (PCR) Human Metapneumovir PCR Influenza A (RT-PCR) Influenza Type A (PCR) Influenza B (RT-PCR) Influenza Type B (PCR) M. pneumoniae (PCR) Parainfluenza 1 (PCR) Parainfluenza 2 (PCR) Parainfluenza 3 (PCR) Parainfluenza 4 (PCR) RSV (PCR) Entero/Rhino (PCR) 01/19/22 01/19/22 01/19/22 06:54 08:00 08:01 WBC RBC Hgb Hct MCV MCH MCHC RDW Plt Count Neut % (Auto) Lymph % (Auto) [place] % (Auto) Eos % (Auto) Baso % (Auto) Neut # (Auto) Lymph # (Auto) [place] # (Auto) Eos # (Auto) Baso # (Auto) PT INR APTT D-Dimer Sodium Potassium Chloride Carbon Dioxide BUN Creatinine Estimated GFR BUN/Creatinine Ratio Glucose Lactate Calcium Magnesium Total Bilirubin AST ALT Alkaline Phosphatase Total Creatine Kinase CK-MB (CK-2) CK-MB (CK-2) Rel Index Troponin I C-Reactive Protein Total Protein Albumin Globulin Albumin/Globulin Ratio Lipase TSH Free T4 Urine RBC None seen Urine WBC 0-1/hpf Ur Squamous Epith Cells 0-1 /hpf D Urine Bacteria Occasional (0-1) Ur Culture Indicated? Cult not indicated Chlamy pneumoniae PCR Not detected Adenovirus (PCR) Not detected B. pertussis DNA (PCR) Not detected B.parapertussis DNA PCR Not detected Coronavirus OC43 (PCR) Not detected Coronavirus HKU1 (PCR) Not detected Coronavirus 229E (PCR) Not detected SARS-CoV-2 (PCR) Not detected Negative Coronavirus NL63 (PCR) Not detected Human Metapneumovir PCR Not detected Influenza A (RT-PCR) Flu a negative Influenza Type A (PCR) Not detected Influenza B (RT-PCR) Flu b negative Influenza Type B (PCR) Not detected M. pneumoniae (PCR) Not detected Parainfluenza 1 (PCR) Not detected Parainfluenza 2 (PCR) Not detected Parainfluenza 3 (PCR) Not detected Parainfluenza 4 (PCR) Not detected RSV (PCR) Not detected Negative Entero/Rhino (PCR) Not detected 01/19/22 01/19/22 01/19/22 08:45 10:59 10:59 WBC RBC Hgb Hct MCV MCH MCHC RDW Plt Count Neut % (Auto) Lymph % (Auto) [place] % (Auto) Eos % (Auto) Baso % (Auto) Neut # (Auto) Lymph # (Auto) [place] # (Auto) Eos # (Auto) Baso # (Auto) PT INR APTT D-Dimer Sodium Potassium Chloride Carbon Dioxide BUN Creatinine Estimated GFR BUN/Creatinine Ratio Glucose Lactate 1.5 Calcium Magnesium 1.4 L Total Bilirubin AST ALT Alkaline Phosphatase Total Creatine Kinase 111 CK-MB (CK-2) 2.48 H CK-MB (CK-2) Rel Index 2.2 Troponin I 0.400 H* C-Reactive Protein Total Protein Albumin Globulin Albumin/Globulin Ratio Lipase TSH Free T4 Urine RBC Urine WBC Ur Squamous Epith Cells Urine Bacteria Ur Culture Indicated? Chlamy pneumoniae PCR Adenovirus (PCR) B. pertussis DNA (PCR) B.parapertussis DNA PCR Coronavirus OC43 (PCR) Coronavirus HKU1 (PCR) Coronavirus 229E (PCR) SARS-CoV-2 (PCR) Coronavirus NL63 (PCR) Human Metapneumovir PCR Influenza A (RT-PCR) Influenza Type A (PCR) Influenza B (RT-PCR) Influenza Type B (PCR) M. pneumoniae (PCR) Parainfluenza 1 (PCR) Parainfluenza 2 (PCR) Parainfluenza 3 (PCR) Parainfluenza 4 (PCR) RSV (PCR) Entero/Rhino (PCR) 01/19/22 01/19/22 01/19/22 10:59 13:34 13:34 WBC RBC Hgb Hct MCV MCH MCHC RDW Plt Count Neut % (Auto) Lymph % (Auto) [place] % (Auto) Eos % (Auto) Baso % (Auto) Neut # (Auto) Lymph # (Auto) [place] # (Auto) Eos # (Auto) Baso # (Auto) PT INR APTT D-Dimer 6282 H Sodium Potassium Chloride Carbon Dioxide BUN Creatinine Estimated GFR BUN/Creatinine Ratio Glucose Lactate Calcium Magnesium Total Bilirubin AST ALT Alkaline Phosphatase Total Creatine Kinase CK-MB (CK-2) CK-MB (CK-2) Rel Index Troponin I 0.765 H* C-Reactive Protein Total Protein Albumin Globulin Albumin/Globulin Ratio Lipase TSH 0.43 L Free T4 1.02 Urine RBC Urine WBC Ur Squamous Epith Cells Urine Bacteria Ur Culture Indicated? Chlamy pneumoniae PCR Adenovirus (PCR) B. pertussis DNA (PCR) B.parapertussis DNA PCR Coronavirus OC43 (PCR) Coronavirus HKU1 (PCR) Coronavirus 229E (PCR) SARS-CoV-2 (PCR) Coronavirus NL63 (PCR) Human Metapneumovir PCR Influenza A (RT-PCR) Influenza Type A (PCR) Influenza B (RT-PCR) Influenza Type B (PCR) M. pneumoniae (PCR) Parainfluenza 1 (PCR) Parainfluenza 2 (PCR) Parainfluenza 3 (PCR) Parainfluenza 4 (PCR) RSV (PCR) Entero/Rhino (PCR) 01/19/22 01/19/22 13:34 13:34 WBC RBC Hgb Hct MCV MCH MCHC RDW Plt Count Neut % (Auto) Lymph % (Auto) [place] % (Auto) Eos % (Auto) Baso % (Auto) Neut # (Auto) Lymph # (Auto) [place] # (Auto) Eos # (Auto) Baso # (Auto) PT 12.7 INR 1.1 APTT 27 D-Dimer Sodium Potassium Chloride Carbon Dioxide BUN Creatinine Estimated GFR BUN/Creatinine Ratio Glucose Lactate Calcium Magnesium Total Bilirubin AST ALT Alkaline Phosphatase Total Creatine Kinase CK-MB (CK-2) CK-MB (CK-2) Rel Index Troponin I C-Reactive Protein 1.8 H Total Protein Albumin Globulin Albumin/Globulin Ratio Lipase TSH Free T4 Urine RBC Urine WBC Ur Squamous Epith Cells Urine Bacteria Ur Culture Indicated? Chlamy pneumoniae PCR Adenovirus (PCR) B. pertussis DNA (PCR) B.parapertussis DNA PCR Coronavirus OC43 (PCR) Coronavirus HKU1 (PCR) Coronavirus 229E (PCR) SARS-CoV-2 (PCR) Coronavirus NL63 (PCR) Human Metapneumovir PCR Influenza A (RT-PCR) Influenza Type A (PCR) Influenza B (RT-PCR) Influenza Type B (PCR) M. pneumoniae (PCR) Parainfluenza 1 (PCR) Parainfluenza 2 (PCR) Parainfluenza 3 (PCR) Parainfluenza 4 (PCR) RSV (PCR) Entero/Rhino (PCR) Assessment & Plan Assessment & Plan narrative: # acute abd pain, leukocytosis and nausea vomiting -suspect viral gastroenteritis as patient had some diarrhea at home, CT angio abdomen pelvis did not find source of abdominal pain, no PE or dissection -CXR and UA normal, CRP and ESR pending, Dimer 6282 -resp PCR, not having current diarrhea to check stool PCR -continue Zosyn -f/u blood cultures -f/u procal -continue antiemetics PRN -dilaudid PRN # NSTEMI vs myocardial demand ischemia -troponin 0.4>0.765, no CP or EKG changes -cardiology called and felt it was likely demand ischemia and to get echo -start heparin drip given concern for NSTEMI -echo reassuring with EF 60-65% and no focal WMA's -continue heparin x48 hrs -troponins peaked at 0.765 and now down trending to 0.709 # hypothyroidism, chronic -continue home thyroid medication -TSH decreased at 0.43 but T4 normal at 1.03 # chronic pain -continue home Dilaudid 2mg q3h p.o. as needed once able to tolerate orals, use IV Dilaudid in the meantime # depression, chronic -continue home sertraline Code status is full. COVID negative. DVT prophylaxis with SCDs. Proxy is Tobin. I have reviewed home meds and used all available resources to reconcile the home meds. This patient will be admitted as inpatient and will require greater than 2 midnights of hospital time to treat NSTEMI, abd pain and NV. Time Spent With Patient Critical Care time: I spent a total of [] minutes of critical care time on this patient's care today; this time is exclusive of procedural time. Quality VTE Deep Vein Thrombosis/Pulmonary Embolism Present on Admission: No
[2022-01-19 17:50] LABS: CKMB % Relative Index 2.5 % (1.5-5.0); Creatine Kinase MB 4.26 ng/mL (<2.37)
[2022-01-19 18:15] LABS: Troponin I 0.709 ng/mL (0.01-0.034)
[2022-01-19 18:27] LABS: Procalcitonin 0.06 ng/mL (<0.5)
[2022-01-19] MEDS: PIPERACILLIN/TAZO 3.375 GM in SODIUM CHLORIDE 0.9% 100 ML IV (18:57)
[2022-01-19 20:42] LABS: Erythrocyte Sedimentation Rate 16 MM/HR (0-20)
[2022-01-19 22:37] LABS: INR 1.1 (0.9-1.3); Prothrombin Time 13.1 SECONDS (10.1-12.7)
[2022-01-19 22:40] LABS: PTT Partial Thromboplastin Tim 48 SECONDS (26-36)
[2022-01-19 22:45] LABS: Creatine Kinase 165 U/L (30-135)
[2022-01-19] MEDS: MELATONIN 3 MG TABLET 6 MG PO (22:55)
[2022-01-19 23:00] LABS: CKMB % Relative Index 2.4 % (1.5-5.0)
[2022-01-19 23:04] LABS: Troponin I 0.485 ng/mL (0.01-0.034)
[2022-01-20] MEDS: HYDROMORPHONE 0.5 MG INJ IV ×3 (01:07→21:47)
[2022-01-20] MEDS: PIPERACILLIN/TAZO 3.375 GM in SODIUM CHLORIDE 0.9% 100 ML IV ×3 (02:43→17:34)
[2022-01-20 04:52] LABS: Add Manual Diff / Slide Review NO; Basophils Absolute Auto 0 /uL (0-100); Basophils Percent Auto 0.2 % (0-2); Eosinophils Absolute Auto 0 /uL (0-450); Eosinophils Percent Auto 0.1 % (2-4); Hematocrit 35.8 % (36-46); Hemoglobin 12.2 g/dL (12.0-16.0); Lymphocytes Absolute Auto 2000 /uL (1100-4500); Lymphocytes Percent Auto 15.1 % (25-40); Mean Corpuscular HGB Conc 33.9 % (30-36); Mean Corpuscular Hemoglobin 30.5 PG (26-34); Mean Corpuscular Volume 89.7 fL (80-100); Monocytes Absolute Auto 1200 /uL (0-900); Monocytes Percent Auto 9.2 % (3-14); Neutrophils Absolute Auto 10100 /uL (1500-7000); Neutrophils Percent Auto 75.4 % (50-75); Platelet Count 292 X10^3/uL (150-400); Red Blood Cell Count 3.99 X10^6/uL (4.0-5.2); Red Cell Distribution Width 13.3 % (11.6-14.8); White Blood Cell Count 13.4 X10^3/uL (4.5-11.0)
[2022-01-20 04:59] LABS: PTT Partial Thromboplastin Tim 49 SECONDS (26-36)
[2022-01-20 05:03] LABS: BUN Creatinine Ratio 17.9 (6-22); Blood Urea Nitrogen 10 mg/dL (7-17); Calcium 8.5 mg/dL (8.4-10.2); Carbon Dioxide 24 mmol/L (22-32); Chloride 104 mmol/L (98-107); Creatine Kinase 141 U/L (30-135); Estimated Glomerular Filt Rate > 60 mL/min (>60); Glucose 97 mg/dL (70-100); HEMOLYSIS < 15 (0-50); Potassium 3.4 mmol/L (3.4-5.1); Sodium 133 mmol/L (137-145)
[2022-01-20 05:19] LABS: CKMB % Relative Index 2.1 % (1.5-5.0); Creatine Kinase MB 2.94 ng/mL (<2.37)
[2022-01-20 05:30] LABS: Troponin I 0.271 ng/mL (0.01-0.034)
[2022-01-20 06:00] VITALS: BP 132/70; PULSE 68; RESP 16; TEMP 36.8; O2SAT 96
[2022-01-20] MEDS: ACETAMINOPHEN 325 MG TABLET 650 MG PO (06:52)
[2022-01-20] MEDS: ASPIRIN EC 81 MG TABLET PO (09:34)
[2022-01-20] MEDS: SERTRALINE 50 MG TABLET PO (09:35)
[2022-01-20 10:08] VITALS: BP 174/86; PULSE 82; RESP 16; TEMP 36.9; O2SAT 97
[2022-01-20 10:38] VITALS: BP 188/94; PULSE 81
[2022-01-20] MEDS: PROCHLORPERAZINE 10 MG/2 ML VIAL IV (10:38)
--- NOTE | 2022-01-20 11:25 | P.PN_ITS ---
Subjective Subjective Date Patient Seen: 01/20/22 Time Patient Seen: 11:27 Interval history: Was feeling much better, but then attempted to eat cream of wheat and had NV again. Currently feeling poorly again. Exam Vital Signs (past 8 hours): - 01/20/22 06:00 01/20/22 10:38 Temperature 98.3 F Pulse Rate 68 81 Respiratory Rate 16 Blood Pressure 132/70 188/94 H Pulse Oximetry 96 Oxygen Flow Rate 0 Oxygen Delivery Method Room Air Oxygen Flow Rate 0 Narrative Exam Narrative: GEN: no acute distress, appears ill and fatigued HEENT: moist mucous membranes, PERRL NECK: trachea midline, no JVD CV: regular rate and rhythm, no murmurs PULM: clear bilaterally ABD: soft, tenderness to lower quadrants, nondistended, no organomegaly EXT: warm and well perfused with no edema NEURO: awake, alert, oriented, no focal deficits Objective Labs Result Diagrams: 01/20/22 04:33 01/20/22 04:33 Labs: Laboratory Results - last 24 hr 01/19/22 01/19/22 01/19/22 08:00 10:59 10:59 WBC RBC Hgb Hct MCV MCH MCHC RDW Plt Count Neut % (Auto) Lymph % (Auto) [place] % (Auto) Eos % (Auto) Baso % (Auto) Neut # (Auto) Lymph # (Auto) [place] # (Auto) Eos # (Auto) Baso # (Auto) ESR PT INR APTT D-Dimer Sodium Potassium Chloride Carbon Dioxide BUN Creatinine Estimated GFR BUN/Creatinine Ratio Glucose Calcium Magnesium 1.4 L Total Creatine Kinase CK-MB (CK-2) 2.48 H CK-MB (CK-2) Rel Index 2.2 Troponin I 0.400 H* C-Reactive Protein Procalcitonin TSH Free T4 Chlamy pneumoniae PCR Not detected Adenovirus (PCR) Not detected B. pertussis DNA (PCR) Not detected B.parapertussis DNA PCR Not detected Coronavirus OC43 (PCR) Not detected Coronavirus HKU1 (PCR) Not detected Coronavirus 229E (PCR) Not detected SARS-CoV-2 (PCR) Not detected Coronavirus NL63 (PCR) Not detected Human Metapneumovir PCR Not detected Influenza Type A (PCR) Not detected Influenza Type B (PCR) Not detected M. pneumoniae (PCR) Not detected Parainfluenza 1 (PCR) Not detected Parainfluenza 2 (PCR) Not detected Parainfluenza 3 (PCR) Not detected Parainfluenza 4 (PCR) Not detected RSV (PCR) Not detected Entero/Rhino (PCR) Not detected 01/19/22 01/19/22 01/19/22 10:59 13:34 13:34 WBC RBC Hgb Hct MCV MCH MCHC RDW Plt Count Neut % (Auto) Lymph % (Auto) [place] % (Auto) Eos % (Auto) Baso % (Auto) Neut # (Auto) Lymph # (Auto) [place] # (Auto) Eos # (Auto) Baso # (Auto) ESR PT INR APTT D-Dimer 6282 H Sodium Potassium Chloride Carbon Dioxide BUN Creatinine Estimated GFR BUN/Creatinine Ratio Glucose Calcium Magnesium Total Creatine Kinase CK-MB (CK-2) CK-MB (CK-2) Rel Index Troponin I 0.765 H* C-Reactive Protein Procalcitonin TSH 0.43 L Free T4 1.02 Chlamy pneumoniae PCR Adenovirus (PCR) B. pertussis DNA (PCR) B.parapertussis DNA PCR Coronavirus OC43 (PCR) Coronavirus HKU1 (PCR) Coronavirus 229E (PCR) SARS-CoV-2 (PCR) Coronavirus NL63 (PCR) Human Metapneumovir PCR Influenza Type A (PCR) Influenza Type B (PCR) M. pneumoniae (PCR) Parainfluenza 1 (PCR) Parainfluenza 2 (PCR) Parainfluenza 3 (PCR) Parainfluenza 4 (PCR) RSV (PCR) Entero/Rhino (PCR) 01/19/22 01/19/22 01/19/22 13:34 13:34 13:34 WBC RBC Hgb Hct MCV MCH MCHC RDW Plt Count Neut % (Auto) Lymph % (Auto) [place] % (Auto) Eos % (Auto) Baso % (Auto) Neut # (Auto) Lymph # (Auto) [place] # (Auto) Eos # (Auto) Baso # (Auto) ESR 16 PT 12.7 INR 1.1 APTT 27 D-Dimer Sodium Potassium Chloride Carbon Dioxide BUN Creatinine Estimated GFR BUN/Creatinine Ratio Glucose Calcium Magnesium Total Creatine Kinase CK-MB (CK-2) CK-MB (CK-2) Rel Index Troponin I C-Reactive Protein 1.8 H Procalcitonin TSH Free T4 Chlamy pneumoniae PCR Adenovirus (PCR) B. pertussis DNA (PCR) B.parapertussis DNA PCR Coronavirus OC43 (PCR) Coronavirus HKU1 (PCR) Coronavirus 229E (PCR) SARS-CoV-2 (PCR) Coronavirus NL63 (PCR) Human Metapneumovir PCR Influenza Type A (PCR) Influenza Type B (PCR) M. pneumoniae (PCR) Parainfluenza 1 (PCR) Parainfluenza 2 (PCR) Parainfluenza 3 (PCR) Parainfluenza 4 (PCR) RSV (PCR) Entero/Rhino (PCR) 01/19/22 01/19/22 01/19/22 17:17 17:17 22:20 WBC RBC Hgb Hct MCV MCH MCHC RDW Plt Count Neut % (Auto) Lymph % (Auto) [place] % (Auto) Eos % (Auto) Baso % (Auto) Neut # (Auto) Lymph # (Auto) [place] # (Auto) Eos # (Auto) Baso # (Auto) ESR PT INR APTT D-Dimer Sodium Potassium Chloride Carbon Dioxide BUN Creatinine Estimated GFR BUN/Creatinine Ratio Glucose Calcium Magnesium Total Creatine Kinase 171 H 165 H CK-MB (CK-2) 4.26 H D 3.90 H CK-MB (CK-2) Rel Index 2.5 2.4 Troponin I 0.709 H* 0.485 H* C-Reactive Protein Procalcitonin 0.06 TSH Free T4 Chlamy pneumoniae PCR Adenovirus (PCR) B. pertussis DNA (PCR) B.parapertussis DNA PCR Coronavirus OC43 (PCR) Coronavirus HKU1 (PCR) Coronavirus 229E (PCR) SARS-CoV-2 (PCR) Coronavirus NL63 (PCR) Human Metapneumovir PCR Influenza Type A (PCR) Influenza Type B (PCR) M. pneumoniae (PCR) Parainfluenza 1 (PCR) Parainfluenza 2 (PCR) Parainfluenza 3 (PCR) Parainfluenza 4 (PCR) RSV (PCR) Entero/Rhino (PCR) 01/19/22 01/20/22 01/20/22 22:20 04:33 04:33 WBC 13.4 H RBC 3.99 L Hgb 12.2 Hct 35.8 L MCV 89.7 MCH 30.5 MCHC 33.9 RDW 13.3 Plt Count 292 Neut % (Auto) 75.4 H Lymph % (Auto) 15.1 L [place] % (Auto) 9.2 Eos % (Auto) 0.1 L Baso % (Auto) 0.2 Neut # (Auto) 37591 H Lymph # (Auto) 2000 [place] # (Auto) 1200 H Eos # (Auto) 0 Baso # (Auto) 0 ESR PT 13.1 H INR 1.1 APTT 48 H D D-Dimer Sodium Potassium Chloride Carbon Dioxide BUN Creatinine Estimated GFR BUN/Creatinine Ratio Glucose Calcium Magnesium Total Creatine Kinase 141 H CK-MB (CK-2) 2.94 H CK-MB (CK-2) Rel Index 2.1 Troponin I 0.271 H* C-Reactive Protein Procalcitonin TSH Free T4 Chlamy pneumoniae PCR Adenovirus (PCR) B. pertussis DNA (PCR) B.parapertussis DNA PCR Coronavirus OC43 (PCR) Coronavirus HKU1 (PCR) Coronavirus 229E (PCR) SARS-CoV-2 (PCR) Coronavirus NL63 (PCR) Human Metapneumovir PCR Influenza Type A (PCR) Influenza Type B (PCR) M. pneumoniae (PCR) Parainfluenza 1 (PCR) Parainfluenza 2 (PCR) Parainfluenza 3 (PCR) Parainfluenza 4 (PCR) RSV (PCR) Entero/Rhino (PCR) 01/20/22 01/20/22 04:33 04:33 WBC RBC Hgb Hct MCV MCH MCHC RDW Plt Count Neut % (Auto) Lymph % (Auto) [place] % (Auto) Eos % (Auto) Baso % (Auto) Neut # (Auto) Lymph # (Auto) [place] # (Auto) Eos # (Auto) Baso # (Auto) ESR PT INR APTT 49 H D-Dimer Sodium 133 L Potassium 3.4 Chloride 104 Carbon Dioxide 24 BUN 10 Creatinine 0.56 Estimated GFR > 60 BUN/Creatinine Ratio 17.9 Glucose 97 Calcium 8.5 Magnesium Total Creatine Kinase CK-MB (CK-2) CK-MB (CK-2) Rel Index Troponin I C-Reactive Protein Procalcitonin TSH Free T4 Chlamy pneumoniae PCR Adenovirus (PCR) B. pertussis DNA (PCR) B.parapertussis DNA PCR Coronavirus OC43 (PCR) Coronavirus HKU1 (PCR) Coronavirus 229E (PCR) SARS-CoV-2 (PCR) Coronavirus NL63 (PCR) Human Metapneumovir PCR Influenza Type A (PCR) Influenza Type B (PCR) M. pneumoniae (PCR) Parainfluenza 1 (PCR) Parainfluenza 2 (PCR) Parainfluenza 3 (PCR) Parainfluenza 4 (PCR) RSV (PCR) Entero/Rhino (PCR) PFSH Medical History Arthritis Bitten by angi, initial encounter Hematoma of arm History of stroke Hypothyroidism Osteoarthritis of lumbar spine Radial head fracture, closed Sciatica Surgical History History of back surgery (2015) History of History of removal of ovarian cyst Hx of appendectomy Hx of dilation and curettage (1993) Hx of total hysterectomy (2009) Social History household members: spouse, family and children Smoking Status: Never smoker alcohol intake: former Assessment & Plan Assessment & Plan narrative: # acute abd pain, leukocytosis and nausea vomiting -suspect viral gastroenteritis as patient had some diarrhea at home, CT angio abdomen pelvis did not find source of abdominal pain, no PE or dissection -CXR and UA normal, CRP and ESR pending, Dimer 6282 -resp PCR, not having current diarrhea to check stool PCR -continue Zosyn -blood cultures neg at 24 hours -procal 0.06 -continue antiemetics PRN, increase zofran to q6h PRN and add ativan PRN -dilaudid PRN # NSTEMI vs myocardial demand ischemia -troponin 0.4>0.765, no CP or EKG changes -cardiology called and felt it was likely demand ischemia and to get echo -start heparin drip given concern for NSTEMI -echo reassuring with EF 60-65% and no focal WMA's -continue heparin x48 hrs -troponins peaked at 0.765 and now down trending # hypothyroidism, chronic -continue home thyroid medication -TSH decreased at 0.43 but T4 normal at 1.03 # chronic pain -continue home Dilaudid 2mg q3h p.o. as needed once able to tolerate orals, use IV Dilaudid in the meantime # depression, chronic -continue home sertraline Code status is full. COVID negative. DVT prophylaxis with SCDs. Proxy is Tobin. I have reviewed home meds and used all available resources to reconcile the home meds. Dispo: Home likely 01/21. Time Spent With Patient Critical Care time: I spent a total of [] minutes of critical care time on this patient's care today; this time is exclusive of procedural time. Quality VTE Deep Vein Thrombosis/Pulmonary Embolism Present on Admission: No
[2022-01-20] MEDS: ONDANSETRON 4 MG/2 ML INJ IV ×3 (12:58→22:57)
--- NOTE | 2022-01-20 13:05 | CM.DANOTE ---
DCP: Case received, EMR reviewed and met with patient. Introduced self and role. Was able to obtain information regarding patient's baseline activity level prior to hospitalization. DCP assessment completed with information currently available. Patient is a 56 year old female who admitted yesterday morning to the care of the hospitalist team. PCP: Dr. Yu, [facility]. Payer: confirmed: Ashley SONG. Patient came to the hospital via ambulance secondary to havint periumbilical epigastric abdominal pain. Patient had noted pain, nausea and vomiting since last night. Patient diagnosed with viral gastroenteritis. Met with patient in her room. She is alert and oriented, sitting on the edge of the bed. At her baseline, she is independent, resides in [place] with spouse, Tobin. She is employed at [employer]. P: DCP to continue to follow. Plan is home when medically stable. Julia Davis RN/Finger Buff Sewer Discharge Planning/Care Management CM Discharge Assessment Start: 01/20/22 13:03 Freq: Status: Active Protocol: Document 01/20/22 13:04 (Rec: 01/20/22 13:05 [id number]) Discharge Planning Assessment Assigned Body Sander Julia Davis RN/Finger Buff [employer]er Advance Directives? No History Provided By Patient,Medical Record Prior Living Arrangements House Household Members spouse,family,children Type of transporation used prior to Drives own vehicle admit Independent with ADL's Yes Is patient alert and oriented? Yes Caregiver for Another No Barriers to Discharge No Discharge Plan Home Transportation Arrangement Spouse Referrals Initiated None needed Whiteboard Updated in Patient Room with Yes name and ext. # of Body Sander Review Status In Process Next Review Type Continued Stay Review
[2022-01-20] MEDS: LORazepam 2 MG/ML INJ 0.5 MG IV ×2 (15:00→20:02)
[2022-01-20] MEDS: SODIUM CHLORIDE 0.9% 1,000 ML 100 ML IV (18:43)
[2022-01-20 21:00] VITALS: BP 187/83; PULSE 102; RESP 19; TEMP 37.6; O2SAT 94
[2022-01-20] MEDS: HEPARIN DRIP 25,000 UNIT/500 ML IV.SOLN 16.982 UNIT IV (22:53)
[2022-01-21] VITALS: BP 189/95; PULSE 84; RESP 17; TEMP 37; O2SAT 96
[2022-01-21] MEDS: LORazepam 2 MG/ML INJ 0.5 MG IV ×2 (00:15→15:55)
[2022-01-21 00:58] VITALS: BP 174/87; PULSE 84
[2022-01-21] MEDS: HYDROMORPHONE 0.5 MG INJ IV ×2 (01:21→06:13)
[2022-01-21] MEDS: PIPERACILLIN/TAZO 3.375 GM in SODIUM CHLORIDE 0.9% 100 ML IV ×3 (02:38→18:45)
[2022-01-21] MEDS: ONDANSETRON 4 MG/2 ML INJ IV ×3 (05:09→18:45)
[2022-01-21] MEDS: SODIUM CHLORIDE 0.9% 1,000 ML 100 ML IV ×2 (05:09→15:09)
[2022-01-21 06:17] LABS: Add Manual Diff / Slide Review NO; Basophils Absolute Auto 0 /uL (0-100); Basophils Percent Auto 0.4 % (0-2); Eosinophils Absolute Auto 0 /uL (0-450); Eosinophils Percent Auto 0.1 % (2-4); Hematocrit 37.4 % (36-46); Hemoglobin 12.9 g/dL (12.0-16.0); Lymphocytes Absolute Auto 2700 /uL (1100-4500); Lymphocytes Percent Auto 19.4 % (25-40); Mean Corpuscular HGB Conc 34.5 % (30-36); Mean Corpuscular Hemoglobin 30.7 PG (26-34); Monocytes Absolute Auto 1400 /uL (0-900); Monocytes Percent Auto 10.1 % (3-14); Neutrophils Absolute Auto 9600 /uL (1500-7000); Platelet Count 293 X10^3/uL (150-400); Red Cell Distribution Width 12.7 % (11.6-14.8); White Blood Cell Count 13.7 X10^3/uL (4.5-11.0)
[2022-01-21 06:22] LABS: BUN Creatinine Ratio 17.2 (6-22); Blood Urea Nitrogen 10 mg/dL (7-17); Calcium 8.5 mg/dL (8.4-10.2); Carbon Dioxide 25 mmol/L (22-32); Chloride 100 mmol/L (98-107); Estimated Glomerular Filt Rate > 60 mL/min (>60); Glucose 92 mg/dL (70-100); HEMOLYSIS < 15 (0-50); Sodium 134 mmol/L (137-145)
[2022-01-21 07:34] LABS: PTT Partial Thromboplastin Tim 54 SECONDS (26-36)
[2022-01-21 08:00] VITALS: BP 154/72; PULSE 74; RESP 20; TEMP 36.6; O2SAT 96
[2022-01-21] MEDS: ASPIRIN EC 81 MG TABLET PO (09:36)
[2022-01-21] MEDS: SERTRALINE 50 MG TABLET PO (09:36)
[2022-01-21] MEDS: POTASSIUM CHLORIDE 20 MEQ TAB 40 MEQ PO (10:50)
--- NOTE | 2022-01-21 13:03 | PC.NURSE ---
Alert and oriented, follows commands offers slight c/o nausea. Medications per orders seem to be of good affect. Tool a little b'fast and doing a bit better with lunch.
[2022-01-21 14:00] VITALS: BP 156/72; PULSE 77; RESP 18; TEMP 37.4; O2SAT 98
--- NOTE | 2022-01-21 19:48 | P.PN_ITS ---
Subjective Subjective Interval history: 56-year-old female with prior cerebrovascular accident, back surgery with previous SI fusion, hypothyroidism, prior total hysterectomy and appendectomy who is presently hospital day 2. Admitted with intractable nausea vomiting, generalized abdominal pain, and malaise. Troponin bumped inches felt to have NSTEMI versus demand ischemia. Gastroenteritis was felt to be viral in nature. Patient reports she is feeling much better today. We did restart IV fluids last night and she feels as if she is finally turned the corner. She is not having any nausea today. She is able to tolerate liquids, but has not had enough to maintain hydration. She also reports she is eating very little. She states she is finally passing some gas which she had not done in a couple of days. Exam Vital Signs (past 8 hours): - 01/21/22 14:00 Temperature 99.4 F Pulse Rate 77 Respiratory Rate 18 Blood Pressure 156/72 H Pulse Oximetry 98 Oxygen Delivery Method Room Air Oxygen Flow Rate 0 Narrative Exam Narrative: GEN: Very pleasant middle-aged female, Alert and oriented x 3, NAD HEENT:NC, Face symmetric CHEST: Respiratory excursions symmetric, CTAB CV: RRR, no M/R/G ABD: Soft, NT/ND, BT present in all 4 quadrants, no organomegaly or masses EXTR: warm, well perfused, no C/C/E SKIN: warm and dry, no rash NEURO: Alert and oriented x 3, nonfocal Objective Labs Result Diagrams: 01/21/22 05:55 01/21/22 05:55 Labs: Laboratory Results - last 24 hr 01/21/22 01/21/22 01/21/22 05:55 05:55 07:15 WBC 13.7 H RBC 4.20 Hgb 12.9 Hct 37.4 MCV 89.0 MCH 30.7 MCHC 34.5 RDW 12.7 Plt Count 293 Neut % (Auto) 70.0 Lymph % (Auto) 19.4 L Hickman % (Auto) 10.1 Eos % (Auto) 0.1 L Baso % (Auto) 0.4 Neut # (Auto) 9600 H Lymph # (Auto) 2700 Hickman # (Auto) 1400 H Eos # (Auto) 0 Baso # (Auto) 0 APTT 54 H Sodium 134 L Potassium 3.0 L Chloride 100 Carbon Dioxide 25 BUN 10 Creatinine 0.58 Estimated GFR > 60 BUN/Creatinine Ratio 17.2 Glucose 92 Calcium 8.5 PFSH Medical History Arthritis Bitten by mary jomariellasoha, initial encounter Hematoma of arm History of stroke Hypothyroidism Osteoarthritis of lumbar spine Radial head fracture, closed Sciatica Surgical History History of back surgery (2015) History of History of removal of ovarian cyst Hx of appendectomy Hx of dilation and curettage (1993) Hx of total hysterectomy (2009) Social History household members: spouse, family and children Smoking Status: Never smoker alcohol intake: former Assessment & Plan Assessment & Plan narrative: One. Suspected acute gastroenteritis Patient presented with abdominal pain, nausea and vomiting, which started January 16. She is gradually improved with supportive care. She has no e vidence of bacterial infection. She is not had any diarrhea. Will plan to saline lock IV fluids in the morning, continue to encourage oral fluid intake, and likely discharge home tomorrow. White blood cell count is down to 13.7. 2. NSTEMI versus myocardial demand ischemia Echocardiogram was done which revealed normal wall motion and an EF of 60-65%. She is not having any cardiac symptoms. Troponins were trending down from 0.485 on January 19 to 0.271 yesterday. 3. Hypokalemia Repleting. Rechecked tomorrow. 4. Hypothyroidism Continue outpatient medications . 5. Chronic pain continue usual home Dilaudid. 6. Depression continue sertraline Code status Full Prophylaxis SCDs Disposition Likely discharge home tomorrow Time Spent With Patient Critical Care time: I spent a total of [] minutes of critical care time on this patient's care today; this time is exclusive of procedural time. Quality VTE Deep Vein Thrombosis/Pulmonary Embolism Present on Admission: No
[2022-01-21 22:00] VITALS: BP 103/64; PULSE 69; RESP 16; TEMP 36.4; O2SAT 97
[2022-01-22] VITALS: BP 122/78; PULSE 60; RESP 14; TEMP 37.7; O2SAT 100
[2022-01-22] MEDS: ONDANSETRON 4 MG/2 ML INJ IV ×2 (00:23→06:13)
[2022-01-22] MEDS: PIPERACILLIN/TAZO 3.375 GM in SODIUM CHLORIDE 0.9% 100 ML IV (01:48)
[2022-01-22 01:49] VITALS: TEMP 37.8
[2022-01-22] MEDS: ACETAMINOPHEN 325 MG TABLET 650 MG PO (01:49)
[2022-01-22] MEDS: SODIUM CHLORIDE 0.9% 1,000 ML 100 ML IV (01:50)
[2022-01-22] MEDS: MELATONIN 3 MG TABLET 6 MG PO (01:51)
[2022-01-22] MEDS: LORazepam 2 MG/ML INJ 0.5 MG IV (01:51)
[2022-01-22 02:51] VITALS: TEMP 37.2
[2022-01-22 04:51] LABS: Add Manual Diff / Slide Review NO; Basophils Absolute Auto 0 /uL (0-100); Basophils Percent Auto 0.4 % (0-2); Eosinophils Absolute Auto 100 /uL (0-450); Eosinophils Percent Auto 0.5 % (2-4); Hematocrit 33.5 % (36-46); Hemoglobin 11.5 g/dL (12.0-16.0); Lymphocytes Absolute Auto 2500 /uL (1100-4500); Mean Corpuscular HGB Conc 34.4 % (30-36); Mean Corpuscular Hemoglobin 30.8 PG (26-34); Mean Corpuscular Volume 89.5 fL (80-100); Monocytes Absolute Auto 1000 /uL (0-900); Monocytes Percent Auto 9.9 % (3-14); Neutrophils Absolute Auto 6700 /uL (1500-7000); Neutrophils Percent Auto 65.2 % (50-75); Platelet Count 254 X10^3/uL (150-400); Red Blood Cell Count 3.74 X10^6/uL (4.0-5.2); Red Cell Distribution Width 12.8 % (11.6-14.8); White Blood Cell Count 10.3 X10^3/uL (4.5-11.0)
[2022-01-22 04:54] LABS: BUN Creatinine Ratio 15.2 (6-22); Blood Urea Nitrogen 10 mg/dL (7-17); Calcium 7.9 mg/dL (8.4-10.2); Carbon Dioxide 24 mmol/L (22-32); Chloride 103 mmol/L (98-107); Estimated Glomerular Filt Rate > 60 mL/min (>60); Glucose 85 mg/dL (70-100); HEMOLYSIS 20 (0-50); Potassium 3.3 mmol/L (3.4-5.1); Sodium 133 mmol/L (137-145)
[2022-01-22 06:00] VITALS: BP 129/69; PULSE 60; RESP 16; TEMP 36.7; O2SAT 98
[2022-01-22 07:51] LABS: PTT Partial Thromboplastin Tim 69 SECONDS (26-36)
[2022-01-22] MEDS: ASPIRIN EC 81 MG TABLET PO (08:56)
[2022-01-22] MEDS: SERTRALINE 50 MG TABLET PO (08:56)
[2022-01-22] MEDS: POTASSIUM CHLORIDE 20 MEQ TAB PO ×2 (08:56→11:39)
--- NOTE | 2022-01-22 10:59 | PC.NURSE ---
Patient is going to be discharged home soon. She has been d/cd from her heparin gtt. IVF stopped. She tolerated toast and juice. Her will be here soon to get her.
--- NOTE | 2022-01-22 20:06 | P.DS_ITS ---
History of Present Illness History of Present Illness Chief complaint: N/V x1day Narrative: Per history and physical: May Martinez in a 56yo F with PMH of Campylobacter, prior CVA, back surgery with SI fusion, hypothyroidism, total hysterectomy, and appendectomy who presents with 1 day of acute intractable NV, generalized abd pain and malaise.? Patient states she was in her normal state of health until last night she had sudden onset abdominal pain, cramping and some diarrhea.? She then had intractable nausea and vomiting so the night she states she feels very weak and sick. Denies any chest pain.? She did not eat out or have any foods of her normal routine yesterday.? She denies respiratory symptoms.? She had history of Campylobacter although had diarrhea with that.? She does not have any current diarrhea.? She also had a recent UTI which was treated previously and denies current dysuria. Discharge Providers Provider Date of admission: 01/19/22 10:49 Discharge Date: 01/22/22 Primary care physician: FRANDY Chang Discharge provider: Jannet Esparza MD Summary Hospital Course Discharge Diagnosis: Acute gastroenteritis, suspected viral etiology, improved NSTEMI versus myocardial demand ischemia-suspect myocardial demand ischemia, improved Hypokalemia, repleting Hypothyroidism, chronic, stable Chronic pain syndrome, stable Depression, chronic, stable Hospital Course: Patient presented with significant abdominal pain followed by intense nausea and vomiting. She was ultimately admitted secondary to dehydration. She had significant issues with elevated blood pressures and subsequently had a troponin elevation. She was placed on a heparin drip times 48 hours. Echocardiogram was done which was reassuring without wall motion abnormalities. She had no chest pain or EKG changes. Troponin peaked and then began trending down on the date of admission. She was doing significantly better on the day following admission. She was not having any nausea or vomiting. She subsequently ate some cream of wheat and had recurrent symptoms. She ultimately required resumption of IV fluids and scheduled antiemetics. She was feeling improved by January 21. However, she was still not drinking adequate fluids. Fluids were subsequently discontinued on the morning of January 22. Patient was able to eat a small breakfast, was drinking adequate fluids, and felt ready to go home. Status at Discharge Cognitive/behavioral status at discharge: at baseline, oriented Functional status at discharge: independent ambulation Overall status at discharge: patient is progressing back to baseline Exam Vital Signs (past 8 hours): Oxygen Delivery Method Room Air Oxygen Flow Rate 0 Narrative Exam Narrative: GEN:? Very pleasant middle-aged female, Alert and oriented x 3, NAD HEENT:NC, Face symmetric CHEST: Respiratory excursions symmetric, CTAB CV: RRR, no M/R/G ABD: Soft, NT/ND, BT present in all 4 quadrants, no organomegaly or masses EXTR: warm, well perfused, no C/C/E SKIN: warm and dry, no rash NEURO: Alert and oriented x 3, nonfocal Objective Labs Result Diagrams: 01/22/22 04:34 01/22/22 04:34 Labs: Laboratory Results - last 24 hr 01/22/22 01/22/22 01/22/22 04:34 04:34 07:15 WBC 10.3 RBC 3.74 L Hgb 11.5 L Hct 33.5 L MCV 89.5 MCH 30.8 MCHC 34.4 RDW 12.8 Plt Count 254 Neut % (Auto) 65.2 Lymph % (Auto) 24.0 L Throckmorton % (Auto) 9.9 Eos % (Auto) 0.5 L Baso % (Auto) 0.4 Neut # (Auto) 6700 Lymph # (Auto) 2500 Throckmorton # (Auto) 1000 H Eos # (Auto) 100 Baso # (Auto) 0 APTT 69 H D Sodium 133 L Potassium 3.3 L Chloride 103 Carbon Dioxide 24 BUN 10 Creatinine 0.66 Estimated GFR > 60 BUN/Creatinine Ratio 15.2 Glucose 85 Calcium 7.9 L PFSH Medical History Arthritis Bitten by angi, initial encounter Hematoma of arm History of stroke Hypothyroidism Osteoarthritis of lumbar spine Radial head fracture, closed Sciatica Surgical History History of back surgery (2015) History of History of removal of ovarian cyst Hx of appendectomy Hx of dilation and curettage (1993) Hx of total hysterectomy (2009) Social History household members: spouse, family and children Smoking Status: Never smoker alcohol intake: former Discharge Plan Discharge Plan Patient Disposition: Home Provider Discharge Comment: Continue increasing your food intake as tolerated, start w/low fiber foods. Drink at least 2 liters of noncaffeinated fluid daily. Return to the ER for: fevers/chills, shortness of breath, inability to hold down fluids/food Discharge orders & Medications Prescriptions: New aspirin 81 mg Tablet,Delayed Release (Dr/Ec) 81 mg PO DAILY Qty: 30 0RF ondansetron 4 mg tablet,disintegrating 4 mg PO Q8H PRN (Reason: nausea and vomiting) Qty: 20 0RF Continued phenazopyridine [Pyridium] 100 mg tablet 100 mg PO TID PRN (Reason: pain) Qty: 6 0RF Nature-Throid 97.5 mg Tablet 97.5 mg PO DAILY Qty: 0 sertraline 100 mg Tablet 50 mg PO DAILY tizanidine 4 mg Capsule 4 mg PO BEDTIME PRN (Reason: Muscle Spasm) buprenorphine [Butrans] 5 mcg/hour Patch Weekly 1 patch TRANSDERMAL Q7D acetaminophen 325 mg Tablet 650 mg PO Q6HR PRN (Reason: Pain, Mild (1-3)) Qty: 60 0RF hydromorphone 2 mg Tablet 2 mg PO Q3H PRN (Reason: Pain, Severe (7-10)) Qty: 60 0RF Follow up/Referrals: Margi Burns ARNP [Primary Care Provider] - Diet/Activity/Treatments Diet: Diet as Tolerated Activity: As tolerated Visit Report/Discharge Packet Instructions: DI for Nausea -- Adult, Nausea and Vomiting-Adult Discharge Data Primary Care Provider: Margi Burns Attending Provider: Yovani Sutton VTE Deep Vein Thrombosis/Pulmonary Embolism Present on Admission: No
== END 2022-01-22 12:04 | disposition home or self-care (01) | DRG 392 ==
LOC: ED 09:27 → AC 11:23
PROVIDERS: Emergency Medicine; Internal Medicine; Admitting Provider Student in an Organized Health Care Education/Training Program; Emergency Provider Emergency Medicine; Family Provider Student in an Organized Health Care Education/Training Program; PCP Nurse Practitioner; Referring Provider Emergency Medicine; Visit Provider Student in an Organized Health Care Education/Training Program
DX: A08.4 Viral intestinal infection, unspecified (principal); I24.8 Other forms of acute ischemic heart disease; E03.9 Hypothyroidism, unspecified; G89.29 Other chronic pain; F32.A Depression, unspecified; E87.6 Hypokalemia; E86.0 Dehydration; Z20.822 Contact with and (suspected) exposure to COVID-19
CPT/HCPCS: 0241U; 36415; 71275; 74174; 74177; 76705; 80048; 80053; 81003; 81015; 82550; 82553; 83605; 83690; 83735; 84145; 84439; 84443; 84484; 85025; 85379; 85610; 85651; 85730; 86140; 87040; 87086; 87633; 93005; 93306; 96361; 96365; 96366; 96367; 96375; 96376; 99284; 99291; G0378; J0780; J1170; J1644; J1885; J2060; J2405; J2543; J2765; J3475; Q9967

== ENCOUNTER → 2022-07-08 11:08 | Outpatient (CLI) | payer OTHER, SELFPAY ==
[2022-01-19 14:29] VITALS: BMI 29.5
--- NOTE | 2022-07-08 11:10 | DI.MRI.S_ITS ---
PROCEDURE: MR FOOT RT WO CON INDICATIONS: Plantar fascial fibromatosis. TECHNIQUE: Noncontrast sagittal T1 spin echo and T2 fast spin echo with fat saturation, long-axis T1 spin echo and T2 fast spin echo with fat saturation, short-axis T1 spin echo and T2 fast spin echo with fat saturation through the forefoot. COMPARISON: None. FINDINGS: Image quality: Excellent. Bones and joints: Osteoarthritic changes are noted in midfoot and forefoot more notably in 1st MTP joint and 1st interphalangeal joint with significant joint space narrowing, subchondral sclerosis and small marginal osteophyte formation. Nonspecific subcortical cystic area involving 1st metatarsal base and 1st metatarsal head are seen. No metatarsal stress fracture. No acute fracture or dislocation. No suspicious bony lesions. Soft tissues: The visualized plantar foot muscles demonstrate normal signal and bulk. Visualized flexor and extensor tendons appear intact, without tenosynovitis. The distal insertions of the peroneus brevis and longus tendons appear intact. The principal Lisfranc ligament appears intact. No soft tissue ganglion cysts or bursal fluid collections. There is subtle nodular thickening involving plantar fascia at the level of midfoot and hindfoot most notably near its insertion on plantar calcaneus and measures up to 3 mm in thickness. IMPRESSION: 1. Subtle nodular thickening involving plantar fascia at the level of midfoot and hindfoot particularly near its insertion on plantar calcaneus concerning for very mild plantar fascial fibromatosis versus low-grade plantar fasciitis. No large soft tissue mass is seen in right foot. 2. [id number] right foot osteoarthritis most notably in great toe. No fracture or dislocation. No suspicious intraosseous lesion. 3. Tendons and ligaments of right foot are grossly intact. Dictated by: Marino Simon M.D. on 07/10/2022 at 8:51 Approved by: Marino Simon M.D. on 07/10/2022 at 8:56
== END ==
PROVIDERS: Family Provider Student in an Organized Health Care Education/Training Program; PCP Physician Assistant; Referring Provider Podiatrist; Visit Provider Podiatrist
DX: M72.2 Plantar fascial fibromatosis (principal); M19.071 Primary osteoarthritis, right ankle and foot
CPT/HCPCS: 73718

== ENCOUNTER → 2023-08-28 07:56 | Outpatient (CLI) | payer OTHER, SELFPAY ==
[2022-01-19 14:29] VITALS: BMI 29.5
--- NOTE | 2023-08-28 | DI.US.S_ITS ---
PROCEDURE: US ABDOMEN LIMITED INDICATIONS: ELEVATED LFT's TECHNIQUE: Real-time scanning was performed of the abdominal and retroperitoneal organs, with image documentation. COMPARISON: [facility], US, US ABDOMEN LIMITED, 01/19/2022, 11:49. FINDINGS: Liver: Liver is normal in size and homogeneous in echotexture. Gallbladder: No gallstones. No wall thickening. No pericholecystic edema. Negative sonographic Mejias's sign. Biliary ducts: Intrahepatic bile ducts are non-dilated. Extrahepatic bile duct caliber measures 4 mm. Normal is 6-7 mm or less in diameter, or 10 mm or less post-cholecystectomy. Pancreas: Visualized portions of the pancreas are sonographically normal. Miscellaneous: No free abdominal fluid. IMPRESSION: Normal right upper quadrant ultrasound. No findings to explain the patient's elevated LFTs. Dictated by: Royer Coffman M.D. on 08/28/2023 at 9:56 Approved by: Royer Coffman M.D. on 08/28/2023 at 9:57
== END ==
PROVIDERS: Family Provider Student in an Organized Health Care Education/Training Program; PCP Physician Assistant; Referring Provider Physician Assistant; Visit Provider Physician Assistant
DX: R79.89 Other specified abnormal findings of blood chemistry (principal)
CPT/HCPCS: 76705

== ENCOUNTER → 2024-05-13 12:34 | Outpatient (CLI) | payer OTHER, SELFPAY ==
[2022-01-19 14:29] VITALS: BMI 29.5
--- NOTE | 2024-05-13 12:39 | DI.RAD.S_ITS ---
PROCEDURE: XR LUMBAR SPINE 2-3V INDICATIONS: CHRONIC BACK PAIN TECHNIQUE: 3 views of the lumbar spine were acquired. COMPARISON: [facility], CR, XR LUMBAR SPINE 2-3V, 12/24/2019, 14:51. FINDINGS: Lumbar spine curvature and alignment: Mild dextroscoliosis with the apex at L3 appreciated. Bones: There are no osseous abnormalities. Disc spaces: L5-S1 fusion provided by interbody spacer , pedicle screws and short interbody struts noted. There is no postsurgical complication. Moderate L2-3 and L3-4 degenerative disc disease seen. Small stabilization rods extending across the SI joint are seen as before. SI joints are normal normal in width Soft tissues: No soft tissue swelling, calcification or mass. IMPRESSION: L5-S1 anterior/posterior fusion. No postsurgical complication Degeneration Dictated by: Stevan Baron M.D. on 05/14/2024 at 10:50 Approved by: Stevan Baron M.D. on 05/14/2024 at 10:53
--- NOTE | 2024-05-13 12:40 | DI.RAD.S_ITS ---
PROCEDURE: XR SACRUM COCCYX MIN 2V INDICATIONS: CHRONIC BACK PAIN TECHNIQUE: 3 views of the sacrum and coccyx acquired. COMPARISON: None. FINDINGS: Bones: There are no osseous abnormalities. SI and hip joints: 3 short rods, extend across the right SI joint, providing stabilization as previously seen. Both SI joints are normal in width and alignment. Both hip joints are also normal with align with arthritic change. Soft tissues: No soft tissue swelling, calcification or mass. IMPRESSION: Normal pelvis Dictated by: Stevan Baron M.D. on 05/14/2024 at 10:53 Approved by: Stevan Baron M.D. on 05/14/2024 at 10:54
== END ==
PROVIDERS: Family Provider Student in an Organized Health Care Education/Training Program; PCP Physician Assistant; Referring Provider Physician Assistant; Visit Provider Physician Assistant
DX: M54.9 Dorsalgia, unspecified (principal); G89.29 Other chronic pain; Z98.890 Other specified postprocedural states; Z98.1 Arthrodesis status
CPT/HCPCS: 72100; 72220

== ENCOUNTER → 2024-05-21 09:01 | Outpatient (CLI) | payer OTHER, SELFPAY ==
[2022-01-19 14:29] VITALS: BMI 29.5
--- NOTE | 2024-05-21 09:03 | DI.MRI.S_ITS ---
PROCEDURE: MR PELVIS WO CON INDICATIONS: Low back pain, prior surgery TECHNIQUE: Noncontrast axial and oblique coronal T1 spin echo and STIR through the sacroiliac joints. COMPARISON: None. FINDINGS: Image quality: Excellent. Bones: Please refer to separate report regarding lumbar spine finding. Screw fixation of the right sacroiliac joint. There is a small osseous hemangioma in S2 vertebral body (06:16). The sacrum is intact. The left sacroiliac joint is unremarkable. The sacral neural foramen are widely patent. Soft tissues: There is muscle edema with moderate fatty atrophy of the right erector spinae. IMPRESSION: 1. Screw fixation of the right sacroiliac joint. Unremarkable left sacroiliac joint. 2. Muscle edema with moderate fatty atrophy of the right erector spinae, nonspecific and may be secondary to denervation. Dictated by: Lori Carvalho M.D. on 05/21/2024 at 11:04 Approved by: Lori Carvalho M.D. on 05/21/2024 at 11:10
--- NOTE | 2024-05-21 09:03 | DI.MRI.S_ITS ---
PROCEDURE: MR LUMBAR SPINE WO CON INDICATIONS: Low back pain, prior surgery TECHNIQUE: Noncontrast sagittal T1 spin echo and T2 fast echo, sagittal STIR, and T2 fast spin echo through the lumbar spine. In cases with scoliosis, additional coronal T2 fast spin echo may be performed. COMPARISON: [facility] MR, MR LUMBAR SPINE WITHOUT CONTRAST, 06/29/2021, 10:34. FINDINGS: Image quality: Excellent Posterior fusion instrumentation at L5-S1. Mild dextroscoliosis lumbar spine, centered at L3-4. Straightening of the lumbar spine. Mild retrolisthesis of L3 on L4. Vertebral body height of the lumbar spine are well maintained. Mild fibrovascular end plate change at L2-3. Multilevel disc bulge and disc desiccation. Conus terminates at the level of L1-2, and is unremarkable. Right neural foraminal stenosis: mild at L2-3, L4-5. Left neural foraminal stenosis: Mild at L3-4, L4-5. Axial images: T12-L1: Mild bilateral facet arthropathy. No central canal stenosis. L1-2: Mild disc bulge. Mild bilateral facet arthropathy. No central canal stenosis. L2-3: Moderate bilateral facet arthropathy. Mild disc bulge. Epidural lipomatosis. Mild central canal stenosis. L3-4: Moderate bilateral facet arthropathy. Mild disc bulge. No central canal stenosis. L4-5: Moderate bilateral facet arthropathy. Disc bulge. No central canal stenosis. L5-S1: Mild bilateral facet arthropathy. Status post right laminotomy. No central canal stenosis. Screw fixation of the right sacroiliac joint, partially visualized. Severe fatty atrophy of the right erector spinae , at the level of L5-S1, extending to the level of the sacrum inferiorly. No abdominal aortic aneurysm. IMPRESSION: 1. Posterior fusion instrumentation at L5-S1. 2. Multilevel degenerative changes of lumbar spine, most pronounced at L2-3, where there is mild central canal stenosis and mild right neural foraminal stenosis, grossly unchanged from prior exam. Dictated by: Lori Carvalho M.D. on 05/21/2024 at 10:54 Approved by: Lori Carvalho M.D. on 05/21/2024 at 11:04
== END ==
PROVIDERS: Family Provider Student in an Organized Health Care Education/Training Program; PCP Physician Assistant; Referring Provider Physician Assistant; Visit Provider Physician Assistant
DX: M54.9 Dorsalgia, unspecified (principal); G89.29 Other chronic pain; Z98.890 Other specified postprocedural states; R60.0 Localized edema; N81.84 Pelvic muscle wasting; Z98.1 Arthrodesis status; M51.369 Other intervertebral disc degeneration, lumbar region without mention of lumbar back pain or lower extremity pain; M48.061 Spinal stenosis, lumbar region without neurogenic claudication
CPT/HCPCS: 72148; 72195

== ENCOUNTER → 2024-06-25 09:34 | Outpatient (CLI) | payer OTHER, SELFPAY ==
[2022-01-19 14:29] VITALS: BMI 29.5
--- NOTE | 2024-06-25 09:36 | DI.CT.S_ITS ---
PROCEDURE: CT LUMBAR SPINE WO CON INDICATIONS: Low back pain TECHNIQUE: Noncontrast 3 mm thick sections acquired from the T12 level to the sacrum. Sagittal and coronal reformats were constructed. For radiation dose reduction, the following was used: automated exposure control. COMPARISON: [facility], MR, MR LUMBAR SPINE WO CON, 05/21/2024, 9:12. [facility], CT, L-SPINE WITHOUT CONTRAST, 02/27/2017, 9:49. FINDINGS: Image quality: Excellent. Bones: There is straightening of normal lumbar lordosis. Post fusion changes are again seen at L5-S1 level. Surgical hardware positions are unchanged from recent study. No evidence of hardware loosening or failure. No acute vertebral body compression fractures. No suspicious lytic or blastic bony lesions. T12-L1: No significant disc bulge, canal stenosis or neural foraminal narrowing. L1-L2: Mild diffuse disc bulge. No significant central canal stenosis or neural foraminal narrowing. L2-L3: Loss of disc height and degenerative endplate changes are seen. Broad-based disc bulge and bilateral facet arthrosis with mild central canal stenosis and moderate left worse than right bilateral neural foraminal narrowing. L3-L4: Loss of disc height and degenerative endplate changes are seen. Broad-based disc bulge and bilateral facet arthrosis with mild central canal stenosis, moderate to severe left-sided neural foraminal narrowing and [id number] right-sided neural foraminal narrowing. L4-L5: Degenerative endplate changes and loss of disc height is seen. There is broad-based disc bulge and bilateral facet arthrosis causing [id number] central canal stenosis and severe bilateral neural foraminal narrowing worse on the left side. L5-S1: Postsurgical changes are noted from prior posterior fusion and right laminectomy. Bilateral facet arthrosis is seen. No significant central canal stenosis. Moderate bilateral neural foraminal narrowing is present. Soft tissues: No retroperitoneal masses or hematomas. Visualized aorta is normal in caliber. IMPRESSION: 1. Postfusion changes and right-sided laminectomy at L5-S1 level. No gross hardware loosening or failure. No acute vertebral body compression fracture or significant spondylolisthesis. 2. Multilevel spondylitic changes throughout lumbar spine causing various degrees of central canal stenosis and bilateral neural foraminal narrowing more notably at L4-5 level as above. 3. No gross paraspinous soft tissue abnormality. Dictated by: Marino Simon M.D. on 06/26/2024 at 16:02 Approved by: Marino Simon M.D. on 06/26/2024 at 16:05
--- NOTE | 2024-06-25 09:36 | DI.CT.S_ITS ---
PROCEDURE: CT PEL WO CON INDICATIONS: Low back pain TECHNIQUE: Noncontrast 3 mm axial sections acquired through the bony pelvis, with coronal and sagittal reformatting. COMPARISON: [facility], CT, CT PEL WO CON, 08/29/2017, 9:55. FINDINGS: Image quality: Diagnostic. Bones: There is prior posterior fusion at L5-S1 level and surgical fusion of right sacroiliac joint. Surgical hardware are in the expected positions without gross hardware loosening or failure. There is no acute pelvic or hip fracture. No evidence of pelvic insufficiency fracture. No significant ankylosis is seen in right sacroiliac joint. No erosion or ankylosis is seen in left sacroiliac joint. Mild bilateral hip joint osteoarthritic changes are seen. No evidence of avascular necrosis of femoral head. Soft tissues: There is no pelvic free fluid or free air. No abnormal bowel wall thickening or mesenteric fat stranding. Bladder wall thickness is normal. No pelvic lymphadenopathy by size criteria. No soft tissue mass or fluid collection is seen. No abnormal soft tissue calcifications. No significant joint effusion or calcified intra-articular loose bodies. IMPRESSION: 1. Prior fusion of right sacroiliac joint and lower lumbar spine fusion. No evidence of hardware loosening or failure. No acute pelvic or hip fracture. 2. Mild bilateral hip joint osteoarthritis. No evidence of avascular necrosis of femoral heads. 3. No significant ankylosis is seen in right sacroiliac joint. No erosion or ankylosis is seen in left sacroiliac joint. 4. No gross pelvic soft tissue abnormalities. Dictated by: Marino Simon M.D. on 06/26/2024 at 16:07 Approved by: Marino Simon M.D. on 06/26/2024 at 16:11
== END ==
PROVIDERS: Family Provider Student in an Organized Health Care Education/Training Program; PCP Physician Assistant; Referring Provider Orthopaedic Surgery Orthopaedic Surgery of the Spine; Visit Provider Orthopaedic Surgery Orthopaedic Surgery of the Spine
DX: M16.0 Bilateral primary osteoarthritis of hip (principal); M47.816 Spondylosis without myelopathy or radiculopathy, lumbar region; M47.817 Spondylosis without myelopathy or radiculopathy, lumbosacral region; M48.061 Spinal stenosis, lumbar region without neurogenic claudication; M48.07 Spinal stenosis, lumbosacral region; M54.59 Other low back pain; Z98.1 Arthrodesis status
CPT/HCPCS: 72131; 72192

== ENCOUNTER 2024-09-04 07:18 | Emergency (ER) | payer OTHER, SELFPAY ==
[2022-01-19 14:29] VITALS: BMI 29.5
[2024-09-04] VITALS (21 sets, daily range): BP systolic 157–216; BP diastolic 69–91; PULSE 58–84; RESP 0–20; TEMP 36.2–37; O2SAT 96–99; BMI 25.6
--- NOTE | 2024-09-04 07:35 | EKG_ITS ---
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
--- NOTE | 2024-09-04 07:35 | DI.RAD.S_ITS ---
PROCEDURE: XR CHEST 1V INDICATIONS: Chest Pain TECHNIQUE: One view of the chest was acquired. COMPARISON: [facility], CR, XR CHEST 1V, 08/13/2019, 10:14. FINDINGS: Surgical changes and devices: None. Lungs and pleura: Lungs are clear. No pleural effusions or pneumothorax. Mediastinum: Mediastinal contours appear normal. Heart size is normal. Bones and chest wall: No suspicious bony lesions. Overlying soft tissues appear unremarkable. IMPRESSION: No acute cardiopulmonary abnormality is seen. Dictated by: Melquiades Bhakta M.D. on 09/04/2024 at 8:30 Approved by: Melquiades Bhakta M.D. on 09/04/2024 at 8:30
--- NOTE | 2024-09-04 08:03 | ED.PSYCH ---
HPI - Psych General Chief Complaint: Psychiatric Symptoms Stated Complaint: Had deaths and having a hard time , Mental health Time Seen by Provider: 09/04/24 07:43 Source: patient Mode of arrival: Ambulatory History of Present Illness HPI Narrative: Patient here with . Patient is sent here from walk-in clinic for feeling very overwhelmed. She states there has been 3 deaths in the last 4 weeks. Has been overwhelming. She can not sleep she can not eat. She has tried relaxation methods she has tried yoga she has tried meditation. She can not get into her family doctor until next month. She is scheduled for back surgery next month. She feels dehydrated. Blood pressure is elevated. She is not on any blood pressure medication. She feels flushed. She feels shaky as well. She is not on any psychiatric medication. She has hard time focusing. She is pacing around the house at nighttime waiting for [place]. Related Data Home Medications ?Medication ?Instructions ?Recorded ?Confirmed thyroid (pork) 97.5 mg tablet 97.5 mg PO DAILY #0 tabs 12/15/12 01/19/22 (Nature-Throid) buprenorphine 5 mcg/hour weekly 1 patch transdermal Q7D Chronic 12/17/19 01/19/22 transdermal patch (Butrans) pain sertraline 100 mg tablet 50 mg PO DAILY 12/17/19 01/19/22 tizanidine 4 mg capsule 4 mg PO BEDTIME PRN Muscle Spasm 12/17/19 01/19/22 Previous Rx's ?Medication ?Instructions ?Recorded acetaminophen 325 mg tablet 650 mg (2 x 325 mg) PO Q6HR PRN 12/26/19 Pain, Mild (1-3) #60 tabs hydromorphone 2 mg tablet 2 mg PO Q3H PRN Pain, Severe 12/26/19 (7-10) #60 tabs phenazopyridine 100 mg tablet 100 mg PO TID PRN pain 6 doses #6 01/02/22 (Pyridium) tabs aspirin 81 mg tablet,delayed 81 mg PO DAILY #30 tabs 01/22/22 release ondansetron 4 mg disintegrating 4 mg PO Q8H PRN nausea and 01/22/22 tablet vomiting #20 tabs alprazolam 0.5 mg tablet (Xanax) 0.5 mg PO TID PRN anxiety #21 tabs 09/04/24 lisinopril 5 mg tablet 5 mg PO DAILY #30 tabs 09/04/24 potassium chloride 10 mEq 10 meq PO BID #10 tabs 09/04/24 tablet,extended release Allergies Allergy/AdvReac Type Severity Reaction Status Date / Time erythromycin base AdvReac Severe Gastrointestinal Verified 01/19/22 07:39 (ERYTHROMYCIN BASE) Upset Review of Systems Review of Systems Narrative: GENERAL: Negative chills, positive fatigue, malaise, negative fever, sweats. HEENT: Negative sinus pain, ear pain, sore throat RESPIRATORY: Negative dyspnea, cough CARDIOVASCULAR: Negative chest pain, palpitations GASTROINTESTINAL: Negative vomiting, nausea, abdominal pain : Negative dysuria, frequency, hematuria MUSCULOSKELETAL: Negative muscle or bony pain SKIN: Negative rash, skin lesions NEUROLOGIC: Negative weakness, numbness Psychiatric: Positive anxiety positive sleep change ROS Unobtainable: All systems reviewed & are unremarkable except as noted in HPI and below Patient History Medical History Arthritis Bitten by angi, initial encounter Hematoma of arm History of stroke Hypothyroidism Osteoarthritis of lumbar spine Radial head fracture, closed Sciatica Surgical History History of back surgery (2015) History of History of removal of ovarian cyst Hx of appendectomy Hx of dilation and curettage (1993) Hx of total hysterectomy (2009) Social History household members: spouse, family and children Smoking Status: Never smoker alcohol intake: former Smoking Status: Never smoker alcohol intake frequency: 0-2 drinks per day Exam Narrative Exam Narrative: GENERAL: in no distress, not toxic not dyspneic HEAD: Normocephalic. EYES: Pupils equal round ENT: Mucous membranes moist. NECK: Trachea midline. CARDIOVASCULAR: Regular rate and rhythm RESPIRATORY: Clear to auscultation. Breath sounds equal bilaterally. No wheezes, rales, or rhonchi. GASTROINTESTINAL: Abdomen soft, non-tender EXTREMITIES: No gross deformities. BACK: No flank tenderness. NEURO: AOx4. Clear speech SKIN: Warm and dry PSYCH: Is anxious, is cooperative Initial Vital Signs Initial Vital Signs: Vital Signs Temperature 97.1 F L 09/04/24 07:28 Pulse Rate 64 09/04/24 07:28 Respiratory Rate 16 09/04/24 07:28 Blood Pressure 216/91 H 09/04/24 07:28 Pulse Oximetry 99 09/04/24 07:28 Oxygen Delivery Method Room Air 09/04/24 07:28 Course Orders Ordered: Discontinued Medications Alprazolam (Alprazolam 0.25 Mg Tablet) 0.5 mg PO NOW ONE Stop: 09/04/24 08:04 Last Admin: 09/04/24 08:31 Dose: 0.5 mg Documented By: PATRICIA Aspirin (Aspirin 81 Mg Chew Tab) 324 mg PO NOW ONE Stop: 09/04/24 07:36 Last Admin: 09/04/24 08:01 Dose: Not Given Documented By: PATRICIA Lisinopril (Lisinopril 10 Mg Tablet) 10 mg PO NOW ONE Stop: 09/04/24 11:06 Last Admin: 09/04/24 11:22 Dose: 10 mg Documented By: RODRIGO Vital Signs Vital signs: Vital Signs - 8 hr 09/04/24 07:28 09/04/24 07:35 09/04/24 07:36 Temperature 97.1 F L Pulse Rate 64 62 61 Respiratory Rate 16 Blood Pressure 216/91 H Pulse Oximetry 99 98 98 Oxygen Delivery Method Room Air 09/04/24 07:36 09/04/24 08:00 09/04/24 08:01 Temperature Pulse Rate 61 Respiratory Rate 17 Blood Pressure 186/77 H 177/81 H Pulse Oximetry 99 Oxygen Delivery Method 09/04/24 08:01 09/04/24 08:30 09/04/24 08:31 Temperature Pulse Rate 64 61 Respiratory Rate 15 16 Blood Pressure 190/75 H Pulse Oximetry 99 99 Oxygen Delivery Method 09/04/24 08:31 09/04/24 09:00 09/04/24 09:01 Temperature Pulse Rate 58 L 62 Respiratory Rate 12 14 Blood Pressure 167/74 H Pulse Oximetry 99 98 Oxygen Delivery Method 09/04/24 09:01 09/04/24 09:30 09/04/24 09:31 Temperature Pulse Rate 59 L 69 69 Respiratory Rate 19 13 20 Blood Pressure Pulse Oximetry 99 99 98 Oxygen Delivery Method 09/04/24 09:31 09/04/24 09:50 09/04/24 09:50 Temperature Pulse Rate 62 Respiratory Rate 0 L Blood Pressure 209/89 H 157/69 H Pulse Oximetry 96 Oxygen Delivery Method 09/04/24 10:00 09/04/24 10:01 09/04/24 10:01 Temperature Pulse Rate 67 67 Respiratory Rate 12 10 L Blood Pressure 182/80 H Pulse Oximetry 98 98 Oxygen Delivery Method 09/04/24 10:30 09/04/24 10:30 09/04/24 11:00 Temperature Pulse Rate 71 68 Respiratory Rate Blood Pressure 186/80 H Pulse Oximetry 98 96 Oxygen Delivery Method 09/04/24 11:01 09/04/24 11:01 09/04/24 12:36 Temperature Pulse Rate 68 84 Respiratory Rate Blood Pressure 174/76 H Pulse Oximetry 97 97 Oxygen Delivery Method 09/04/24 12:37 09/04/24 12:37 Temperature Pulse Rate 78 Respiratory Rate Blood Pressure 211/91 H Pulse Oximetry 98 Oxygen Delivery Method MDM - Psych Lab Data 09/04/24 07:40 09/04/24 07:40 Labs: Lab Results 09/04/24 Range/Units 07:40 WBC 11.5 H (4.5-11.0) X10^3/uL RBC 3.96 L (4.0-5.2) X10^6/uL Hgb 12.6 (12.0-16.0) g/dL Hct 37.2 (36-46) % MCV 93.8 (80-100) fL MCH 31.9 (26-34) PG MCHC 34.0 (30-36) % RDW 12.9 (11.6-14.8) % Plt Count 291 (150-400) X10^3/uL Neut % (Auto) 82.7 H (50-75) % Lymph % (Auto) 11.3 L (25-40) % [place] % (Auto) 5.3 (3-14) % Eos % (Auto) 0.4 L (2-4) % Baso % (Auto) 0.3 (0-2) % Neut # (Auto) 9500 H (2303-2739) /uL Lymph # (Auto) 1300 (7368-9680) /uL [place] # (Auto) 600 (0-900) /uL Eos # (Auto) 0 (0-450) /uL Baso # (Auto) 0 (0-100) /uL PT 11.1 (9.4-12.5) SECONDS INR 1.0 (0.9-1.3) APTT 29 (25.1-36.5) SECONDS Sodium 129 L (137-145) mmol/L Potassium 4.0 (3.4-5.1) mmol/L Chloride 97 L (98-107) mmol/L Carbon Dioxide 24 (22-32) mmol/L BUN 8 (7-17) mg/dL Creatinine 0.58 (0.52-1.04) mg/dL Estimated GFR > 60 (>60) mL/min BUN/Creatinine Ratio 13.8 (6-22) Glucose 106 H (70-99) mg/dL Calcium 9.2 (8.4-10.2) mg/dL Magnesium 2.0 (1.6-2.3) mg/dL Total Bilirubin 0.7 (0.2-1.3) mg/dL AST 36 (14-36) IU/L ALT 26 (<35) IU/L Alkaline Phosphatase 63 (38-126) U/L Total Creatine Kinase 169 H (30-135) U/L Troponin I 0.016 (0.01-0.034) ng/mL NT-Pro-B Natriuret Pep 215 H (<125) pg/mL Total Protein 7.7 (6.3-8.2) g/dL Albumin 4.5 (3.5-5.0) g/dL Globulin 3.2 (1.7-4.1) g/dL Albumin/Globulin Ratio 1.4 (1.0-2.8) Lipase 20 L (23-300) U/L Imaging Data Chest x-ray: Radiologist's Impression: [address] [address] XRay Report Signed Patient: May Martinez MR#: [id number] : 1965 Acct:[id number] Age/Sex: 58 / F Date of Service: 09/04/24 Loc: ED Accession Number: [id number] Procedure: XR chest 1V Ordering Provider: Bunny Malik MD PROCEDURE: XR CHEST 1V INDICATIONS: Chest Pain TECHNIQUE: One view of the chest was acquired. COMPARISON: [facility], CR, XR CHEST 1V, 08/13/2019, 10:14. FINDINGS: Surgical changes and devices: None. Lungs and pleura: Lungs are clear. No pleural effusions or pneumothorax. Mediastinum: Mediastinal contours appear normal. Heart size is normal. Bones and chest wall: No suspicious bony lesions. Overlying soft tissues appear unremarkable. IMPRESSION: No acute cardiopulmonary abnormality is seen. Dictated by: Melquiades Bhakta M.D. on 09/04/2024 at 8:30 Approved by: Melquiades Bhakta M.D. on 09/04/2024 at 8:30 [facility] Narrative Medical decision making narrative: Patient here with . Patient is sent here from walk-in clinic for feeling very overwhelmed. She states there has been 3 deaths in the last 4 weeks. Has been overwhelming. She can not sleep she can not eat. She has tried relaxation methods she has tried yoga she has tried meditation. She can not get into her family doctor until next month. She is scheduled for back surgery next month. She feels dehydrated. Blood pressure is elevated. She is not on any blood pressure medication. She feels flushed. She feels shaky as well. She is not on any psychiatric medication. She has hard time focusing. She is pacing around the house at nighttime waiting for [place]. After history and exam, CBC CMP troponin EKG chest x-ray Xanax social work consult [facility] Medical records reviewed: Differential considered: Includes but not limited to fatigue dehydration anxiety depression Lab Test results independently reviewed as above. Pertinent findings: WBC 11.5 hemoglobin 12.6 INR 1.0 sodium 129 potassium 4.0 GFR greater than 60 BUN 8 creatinine 0.58 troponin 0.016 BNP 215 lipase 20 Independently reviewed EKG sinus bradycardia rate [address] elevation or depression Imaging studies independently reviewed: Chest x-ray no acute finding Consultations: Hanane social work has seen patient here. Patient does have good support system. She will contact primary care for close follow up. Resources provided. Re-evaluations: Blood pressure still elevated. I did review patient's blood pressure readings for the past 3 years and she does have hypertension. However she is not being treated. I will start lisinopril now. Blood pressure has improved during course of stay. She does feel better with the Xanax and the lisinopril. Discussion: Appropriate for discharge home. Exam is reassuring. Return precautions reviewed with patient. Sodium level noted but IV fluids was provided. And prescription for potassium will be provided. Patient has good support system and primary care and spouse to support. Social work has seen patient and will contact primary care for follow up. Short course of anxiety medication and blood pressure medication will be provided until primary care follow up. I did review with her that her blood pressure has been elevated in her recent visits. She does desire starting lisinopril. Diagnosis: Anxiety/hypertension Discharge Plan Departure Patient Disposition: Home Clinical Impression: Acute anxiety Hypertension Qualifiers: Hypertension type: unspecified Qualified Code(s): I10 - Essential (primary) hypertension Instructions: Essential Hypertension, DI for Anxiety -- Adult Activity Restrictions/Additional Instructions: I am glad you are feeling better. Please see your family doctor in providers as instructed and provided by social work here. No driving operating machinery today when taking prescribe anxiety medication. Please do have your blood pressure rechecked with your family doctor. Short course of anxiety medication and blood pressure medication has been provided for you. Return if worse if any questions or concerns. Prescriptions: New lisinopril 5 mg tablet 5 mg PO DAILY Qty: 30 0RF alprazolam [Xanax] 0.5 mg tablet 0.5 mg PO TID PRN (Reason: anxiety) Qty: 21 0RF potassium chloride 10 mEq tablet extended release 10 meq PO BID Qty: 10 0RF No Action phenazopyridine [Pyridium] 100 mg tablet 100 mg PO TID PRN (Reason: pain) Qty: 6 0RF Nature-Throid 97.5 mg Tablet 97.5 mg PO DAILY Qty: 0 sertraline 100 mg Tablet 50 mg PO DAILY tizanidine 4 mg Capsule 4 mg PO BEDTIME PRN (Reason: Muscle Spasm) buprenorphine [Butrans] 5 mcg/hour Patch Weekly 1 patch TRANSDERMAL Q7D acetaminophen 325 mg Tablet 650 mg PO Q6HR PRN (Reason: Pain, Mild (1-3)) Qty: 60 0RF hydromorphone 2 mg Tablet 2 mg PO Q3H PRN (Reason: Pain, Severe (7-10)) Qty: 60 0RF aspirin 81 mg Tablet,Delayed Release (Dr/Ec) 81 mg PO DAILY Qty: 30 0RF ondansetron 4 mg tablet,disintegrating 4 mg PO Q8H PRN (Reason: nausea and vomiting) Qty: 20 0RF Referrals: Vivian Powell PA-C [Primary Care Provider, Medical] Stand Alone Forms: Patient Portal/API
[2024-09-04 08:04] LABS: Add Manual Diff / Slide Review NO; Hematocrit 37.2 % (36-46); Hemoglobin 12.6 g/dL (12.0-16.0); Lymphocytes Absolute Auto 1300 /uL (1100-4500); Mean Corpuscular HGB Conc 34.0 % (30-36); Mean Corpuscular Hemoglobin 31.9 PG (26-34); Mean Corpuscular Volume 93.8 fL (80-100); Platelet Count 291 X10^3/uL (150-400)
[2024-09-04 08:05] LABS: INR 1.0 (0.9-1.3); Prothrombin Time 11.1 SECONDS (9.4-12.5)
[2024-09-04 08:08] LABS: PTT Partial Thromboplastin Tim 29 SECONDS (25.1-36.5)
[2024-09-04 08:17] LABS: Alanine Aminotransferase 26 IU/L (<35); Albumin 4.5 g/dL (3.5-5.0); Albumin Globulin Ratio 1.4 (1.0-2.8); Alkaline Phosphatase 63 U/L (38-126); Blood Urea Nitrogen 8 mg/dL (7-17); Calcium 9.2 mg/dL (8.4-10.2); Carbon Dioxide 24 mmol/L (22-32); Chloride 97 mmol/L (98-107); Creatine Kinase 169 U/L (30-135); Estimated Glomerular Filt Rate > 60 mL/min (>60); Globulin 3.2 g/dL (1.7-4.1); Glucose 106 mg/dL (70-99); HEMOLYSIS < 15 (0-50); Lipase 20 U/L (23-300); Magnesium 2.0 mg/dL (1.6-2.3); Potassium 4.0 mmol/L (3.4-5.1); Sodium 129 mmol/L (137-145); Total Protein 7.7 g/dL (6.3-8.2)
[2024-09-04 08:28] LABS: NT-proBNP (BNP-Adult 18+) 215 pg/mL (<125); Troponin I 0.016 ng/mL (0.01-0.034)
--- NOTE | 2024-09-04 12:20 | CM.SWNOTE ---
ED LATH HAND Assessment Note: Pt is a 58yo female, resident of [place], is seen in the ED for heart palpitations, anxiety/grief and not sleeping/eating in the last few days. Pt lives in a house with her , Tobin, and their 26yo son. Pt's Primary Care Provider is Vivian Powell PA-C and insurance is [employer] [facility]. Reviewed chart and discussed with multidisciplinary team pt's medical status and initial discharge needs. LATH HAND entered room to meet with patient, introduced self and role. Pt expressed recent loss of family pet and a string of unexpected in her family in the last month. Patient explained she has not been sleeping or eating in the last four days and has been experiencing heart palpitations last evening. Patient denies hallucinations, no delusions identified during assessment. Pt denies SI/HI. LATH HAND discusses plan of care, pt agrees that she would benefit from PCP and MH counseling as soon as available - willing to start a PRN anxiety medication if prescribed by ED Provider. Pt gave consent for this LATH HAND to reach out to PCP and MH Counselor to coordinate follow up appt. LATH HAND reviews this with ED provider Dr. Malik who indicates agreement and understanding, will prescribe PRN anxiety med. LATH HAND calls pt PCP Clinic ([facility]), it is reported that pt does not have an appt until 10/20. LATH HAND scheduled pt with a different provider in the meantime for sooner ED follow up. Appt scheduled for , 09/11 at 9:00am with Dr. Bernardo Azul; provided printed appt reminder to pt. LATH HAND spoke with pt MH Counselor (Marita Deal, [facility] - ph# ) and updated on pt status. She will coordinate scheduling follow up appt with pt as soon as available. LATH HAND provided [facility] Crisis Line number to pt and spouse, educated on how to utilize service if behavior persists. Plan: Pt to discharge home with spouse and will follow up with MH counselor and PCP. [facility]
== END 2024-09-04 12:56 | disposition home or self-care (01) ==
PROVIDERS: Emergency Provider Emergency Medicine; Family Provider Student in an Organized Health Care Education/Training Program; PCP Physician Assistant
DX: F41.9 Anxiety disorder, unspecified (principal); I10 Essential (primary) hypertension; R07.9 Chest pain, unspecified
CPT/HCPCS: 71045; 80053; 82550; 83690; 83735; 83880; 84484; 85025; 85610; 85730; 93005; 93010; 99284

== ENCOUNTER 2024-09-16 09:41 | Emergency (ER) | payer OTHER, SELFPAY ==
[2022-01-19 14:29] VITALS: BMI 29.5
[2024-09-16] VITALS (39 sets, daily range): BP systolic 114–211; BP diastolic 58–100; PULSE 68–98; RESP 8–33; TEMP 36.6; O2SAT 95–100; BMI 25.6
--- NOTE | 2024-09-16 10:22 | EKG_ITS ---
[id number] [address] Test Date: 2024-09-16 Pat Name: May Martinez Department: [facility] Room: Gender: Female Head Athletic Trainer: PATRICIA : 1965 Requested By: Order Number: [id number] Reading MD: Brent Garrett Measurements Intervals [place] Rate: 78 P: 26 AL: 132 QRS: -3 QRSD: 70 T: 24 QT: 378 QTc: 430 Interpretive Statements Normal sinus rhythm Electronically Signed On 09-18-2024 13:33:29 PDT by Brent Garrett
--- NOTE | 2024-09-16 10:40 | DI.RAD.S_ITS ---
PROCEDURE: XR CHEST 1V INDICATIONS: chest pain TECHNIQUE: One view of the chest was acquired. COMPARISON: [facility], CR, XR CHEST 1V, 09/04/2024, 7:58. FINDINGS: Surgical changes and devices: None. Lungs and pleura: Lungs are clear. No pleural effusions or pneumothorax. Mediastinum: Mediastinal contours appear normal. Heart size is normal. Bones and chest wall: No suspicious bony lesions. Overlying soft tissues appear unremarkable. IMPRESSION: No acute cardiopulmonary abnormality is seen. Dictated by: Melquiades Bhakta M.D. on 09/16/2024 at 11:07 Approved by: Melquiades Bhakta M.D. on 09/16/2024 at 11:07
[2024-09-16 11:43] LABS: Add Manual Diff / Slide Review NO; Hematocrit 38.4 % (36-46); Hemoglobin 13.3 g/dL (12.0-16.0); Lymphocytes Absolute Auto 900 /uL (1100-4500); Mean Corpuscular HGB Conc 34.6 % (30-36); Mean Corpuscular Hemoglobin 31.9 PG (26-34); Mean Corpuscular Volume 92.2 fL (80-100); Platelet Count 324 X10^3/uL (150-400)
[2024-09-16 11:50] LABS: INR 1.0 (0.9-1.3); Prothrombin Time 11.2 SECONDS (9.4-12.5)
[2024-09-16 11:52] LABS: PTT Partial Thromboplastin Tim 28 SECONDS (25.1-36.5)
[2024-09-16 11:56] LABS: Alanine Aminotransferase 24 IU/L (<35); Albumin 4.8 g/dL (3.5-5.0); Albumin Globulin Ratio 1.4 (1.0-2.8); Alkaline Phosphatase 65 U/L (38-126); Blood Urea Nitrogen 5 mg/dL (7-17); Calcium 9.4 mg/dL (8.4-10.2); Carbon Dioxide 25 mmol/L (22-32); Chloride 91 mmol/L (98-107); Creatine Kinase 66 U/L (30-135); Estimated Glomerular Filt Rate > 60 mL/min (>60); Globulin 3.4 g/dL (1.7-4.1); Glucose 138 mg/dL (70-99); HEMOLYSIS < 15 (0-50); Lipase 20 U/L (23-300); Potassium 3.9 mmol/L (3.4-5.1); Sodium 126 mmol/L (137-145); Total Protein 8.2 g/dL (6.3-8.2)
[2024-09-16 12:08] LABS: NT-proBNP (BNP-Adult 18+) 132 pg/mL (<125)
[2024-09-16 12:10] LABS: Troponin I < 0.012 ng/mL (0.01-0.034)
[2024-09-16] MEDS: SODIUM CHLORIDE 0.9% 1,000 ML 1000 ML IV ×2 (12:51→16:36)
[2024-09-16 13:07] LABS: Procalcitonin < 0.030 ng/mL (<0.5)
[2024-09-16] MEDS: ONDANSETRON 4 MG/2 ML INJ IV (13:42)
[2024-09-16] MEDS: LABETALOL 20 MG/4 ML SYRINGE IV (13:42)
--- NOTE | 2024-09-16 15:04 | CM.SWNOTE ---
Addendum entered by Margarita Maddox 09/16/24 19:31: MAILS SUPERVISOR calls [facility], it is reported that they have beds. MAILS SUPERVISOR faxes clinicals for review. MAILS SUPERVISOR calls patient's therapist with patient's consent regarding patient's presentation in the ED. Plan: ED team to seek voluntary inpatient bed for patient, [facility] and [facility] currently reviewing. SERENITY Mireles Addendum entered by Margarita Maddox 09/16/24 19:07: Patient has been receiving fluids in the ED and after recent lab draw, ED provider determines that patient is medically cleared for inpatient. ED provider continues to recommend BH inpatient for patient. MAILS SUPERVISOR to seek placement for patient. MAILS SUPERVISOR calls [facility] BH unit, it is reported that they have beds, MAILS SUPERVISOR to fax clinicals for review. SERENITY Mireles Original Note: ED MAILS SUPERVISOR Assessment Note MAILS SUPERVISOR - Prefabricator Assessment MAILS SUPERVISOR/Prefabricator Assessment Time Spent with Patient Start date 09/16/24 Visit Start Time 14:00 End date 09/16/24 Visit End Time 14:20 Total time Care 20 minutes Management spent on patient visit-in minutes Mental Health Screening Include Onset, Duration, Intensity Presenting Problem Patient presents to the ED due to concern for acute anxiety, patient has been unable to eat, drink and sleep due to anxiety and nausea. Patient has not been able to get rx from PCP for anxiety due to concern for current medications, psychiatrist was recommended to patient. Patient has concern that she is not able to manage symptoms at home and is seeking BH placement, this is patient's second presentation in two weeks regarding these symptoms. Precipitating Event( Patient's doctor through [facility] recommended that s) patient come to the ED due to patient's unmanaged symptoms. Patient recently lost three loved ones (her grandmother , cat and dog) within recent months. Patient states she was caring for her dog while she was experiencing lack of sleep, nausea and not eating or drinking and then when her dog she felt depleted. Patient Strengths Patient has a supportive family, patient has a supportive therapist and patient is seeking help. Current Behavioral Patient sees ALICIA Benitez in [place] on a Health Provider(s) weekly basis for therapy (Ph. # [phone]) Include Facility, Patient was recently recommended to seek a psychiatrist Provider, Ph. # . Psych. Hx Mental Patient has hx of General Anxiety Disorder and Health and Chemical Depression. Dependency patient is currently prescribed Buspar and Sertraline. Upon last ED visit patient was provided short term rx for xanax but her primary care provider did not feel comfortable prescribing anxiety medication to patient. Patient denies any substance use of any kind. Family Hx of None reported Behavioral Abuse Psychiatric No hx Hospitalizations ( date(s)/location) Psychosocial Patient is 58 y/o female who resides with spouse in [facility], patient has a lot of local family support. 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 with Mood?) Thought Content - Patient denies concern for visual or auditory Specify/Describe hallucinations or paranoia. Obsessions, Delusions, Hallucinations Thought Processes ( coherent, goal directed Logical-Coherent- Goal Directed- Detailed-Tangential- Circumstantial- Logical-Disorganized -Thought Blocking) Speech (Normal-Slow- soft/slow Uzoppkj-Zqmfz-Ztzw- Loud-Pressured) Motor (Normal- normal/slow Fcpdgycrr-Wshk-Vqetq ) Insight (Good-Fair- good Poor/Limited) Judgement (Good-Fair good -Poor/Limited) Impulse Control ( adequate Adequate-Impaired) Memory (Immediate- intact, not formally assessed Recent-Remote, Impaired-Intact) Concentration ( intact Intact-Impaired) Attention (Intact- intact Impaired) Behavior ( appropriate Appropriate- Inappropriate) Additional Comment Patient presents as calm, cooperative and communicative . Risk Assessment Suicidal Ideation ( No Plan) Homicidal Ideation ( No Plan) Intervention Intervention MAILS SUPERVISOR enters room to meet with patient. Patient discusses her recent losses of loved ones and compounding events. Patient endorses that she has been experiencing acute anxiety, unable to sleep, eat or drink. Patient states she has been trying to take her medications and believes that is making symptoms worse because most medications require food intake. Patient sees a therapist weekly and has been trying to address her anxiety with PCP but PCP is unable to prescribe anxiety medications on top of the current regimen of medications she is on and a psychiatrist is recommended for patient. MAILS SUPERVISOR discusses voluntary inpatient hospitalization with patient and explores outpatient options as well. Patient endorse preference for inpatient at this time. It is the opinion of this MAILS SUPERVISOR that patient would benefit from hospitalization for medication management and stabilization. MAILS SUPERVISOR reviews this with ED provider Dr. Groves who indicates agreement and understanding but after review states that patient is not medically clear due to low sodium. Dr. Groves reports that he will pursue admission to the hospital for patient. MAILS SUPERVISOR to provide grief support group information to patient and lists of psychiatrists that accept her insurance. If admitted patient would benefit from a psychiatry consult to review patient's medicaiton. Plan RA Plan Disposition pending at this time, patient is not medically clear due to low sodium. ED provider to review patient with hospitalist. MAILS SUPERVISOR to provide patient with outpatient psychiatric and grief group resources. MARY MirelesSW
[2024-09-16 16:22] LABS: Appearance Urine UA CLEAR; Bilirubin Urine UA NEGATIVE (NEGATIVE); Color Urine UA YELLOW; Glucose Urine UA NEGATIVE (Negative); Ketones Urine UA 1+ (NEGATIVE); Leukocyte Esterase Urine UA NEGATIVE (NEGATIVE); Nitrite Urine UA NEGATIVE (Negative); Occult Blood Urine UA TRACE-INTACT (Negative); Protein Urine UA NEGATIVE (Negative); Specific Gravity Urine UA <=1.005 (1.000-1.035); Urobilinogen Urine UA 0.2 E.U./dL (0.2)
[2024-09-16 16:23] LABS: pH Urine UA 5.5 (4.5-8.0)
[2024-09-16 16:25] LABS: UR Morphine/Opiate cutoff 300 Negative (Negative); Ur Specific Gravity Normal (Normal); Urine MDMA Negative (Negative); Urine Methamphetamines Negative (Negative); Urine Tetrahydrocannabinol Negative (Negative); Urine Tricyclic Antidepressant Negative (Negative)
--- NOTE | 2024-09-16 16:31 | PC.NURSE ---
Pt states that she takes an oxycodone 5 mg for back pain. Reports pain at this time. Verbal order received for 5 mg PO oxycodone.
[2024-09-16] MEDS: OXYCODONE IR 5 MG TABLET PO ×2 (16:36→22:01)
[2024-09-16 16:40] LABS: Culture Indicated Urine Specimen Cultured
--- NOTE | 2024-09-16 18:52 | ED.ANXIETY ---
HPI - Anxiety General Chief Complaint: Anxiety Stated Complaint: mental health cant eat Time Seen by Provider: 09/16/24 10:36 Source: patient Mode of arrival: Ambulatory History of Present Illness HPI narrative: 58-year-old woman comes to the ER because of extreme anxiety, inability to eat enough food, not drinking enough water due to extreme anxiety. She states that multiple of her family members and pads have within the past year and she has also experienced other stressful life events as well. 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 She denies suicidality or homicidality or wanting to hurt herself or anyone else. She is already on BuSpar and Prozac as well as antipsychotic patch. This is all being managed by the patient's family PA, she has not been seeing a psychiatrist. Thankfully, she is seeing a counselor and she states that is helping her symptoms somewhat. She has no other specific concerns or complaints at this time. Related Data Home Medications ?Medication ?Instructions ?Recorded ?Confirmed thyroid (pork) 97.5 mg tablet 97.5 mg PO DAILY #0 tabs 12/15/12 01/19/22 (Nature-Throid) buprenorphine 5 mcg/hour weekly 1 patch transdermal Q7D Chronic 12/17/19 01/19/22 transdermal patch (Butrans) pain sertraline 100 mg tablet 50 mg PO DAILY 12/17/19 01/19/22 tizanidine 4 mg capsule 4 mg PO BEDTIME PRN Muscle Spasm 12/17/19 01/19/22 Previous Rx's ?Medication ?Instructions ?Recorded acetaminophen 325 mg tablet 650 mg (2 x 325 mg) PO Q6HR PRN 12/26/19 Pain, Mild (1-3) #60 tabs hydromorphone 2 mg tablet 2 mg PO Q3H PRN Pain, Severe 12/26/19 (7-10) #60 tabs phenazopyridine 100 mg tablet 100 mg PO TID PRN pain 6 doses #6 01/02/22 (Pyridium) tabs aspirin 81 mg tablet,delayed 81 mg PO DAILY #30 tabs 01/22/22 release ondansetron 4 mg disintegrating 4 mg PO Q8H PRN nausea and 01/22/22 tablet vomiting #20 tabs alprazolam 0.5 mg tablet (Xanax) 0.5 mg PO TID PRN anxiety #21 tabs 09/04/24 lisinopril 5 mg tablet 5 mg PO DAILY #30 tabs 09/04/24 potassium chloride 10 mEq 10 meq PO BID #10 tabs 09/04/24 tablet,extended release Allergies Allergy/AdvReac Type Severity Reaction Status Date / Time erythromycin base AdvReac Severe Gastrointestinal Verified 09/16/24 10:08 (ERYTHROMYCIN BASE) Upset Patient History Medical History Arthritis Bitten by angi, initial encounter Hematoma of arm History of stroke Hypothyroidism Osteoarthritis of lumbar spine Radial head fracture, closed Sciatica Surgical History History of back surgery (2015) History of History of removal of ovarian cyst Hx of appendectomy Hx of dilation and curettage (1993) Hx of total hysterectomy (2009) Social History household members: spouse, family and children Smoking Status: Never smoker alcohol intake: former Smoking Status: Never smoker alcohol intake frequency: 0-2 drinks per day Exam Initial Vital Signs Initial Vital Signs: Vital Signs Temperature 98 F 09/16/24 10:05 Pulse Rate 84 09/16/24 10:05 Respiratory Rate 16 09/16/24 10:05 Blood Pressure 211/100 H 09/16/24 10:05 Pulse Oximetry 100 09/16/24 10:05 Oxygen Delivery Method Room Air 09/16/24 10:05 Const General: cooperative, in distress, anxious, No combative, No disheveled and No lethargic Nutritional Appearance: average body habitus [facility] Head: normocephalic and atraumatic Eyes General: Yes appearance normal, both eyes and all related structures Resp Effort & Inspection: normal respiratory effort Auscultation: clear to auscultation bilaterally Cardio Rate: regular rate Rhythm: regular rhythm Heart Sounds: S1 normal and S2 normal GI Palpation: soft and No tender General: No CVA tenderness Neuro General: patient alert, patient awake, patient oriented x3, tone normal, moves all extremities, no focal motor deficits and CN's II-XI intact bilaterally Psych Appearance: well kempt Speech and Movement: speech and movement normal, not agitated, not catatonic, speech clear, speech not delayed, not mute, speech not pressured, not restless, movement not slowed and speech not slurred Mood: anxious mood, dysthymic mood, not euphoric, not manic, not paranoid, not labile, No angry, No irritable mood and No euthymic mood Affect: sad and dysphoric affect Course Course Course Narrative: The patient was seen and examined by myself when she was roomed. She clearly has severe depression and anxiety, but thankfully she is not suicidal or homicidal. The patient is asking to be admitted to inpatient Psychiatry for psychiatric stabilization so that she can get better faster. Given the severity of the patient's depression and anxiety I have to agree. I feel that inpatient psychiatry would be her fastest route to getting better because I believe that profound changes in her medication regimen will have to be made by a psychiatrist for her condition to stabilize. She did have significant hyponatremia initially but this normalized after IV fluids. This makes sense as the patient has been eating and drinking much less than usual lately. There was no other organic cause for condition found on imaging. Orders Ordered: ED Orders 09/16/24 10:14 EKG-12 Lead Stat 09/16/24 10:40 XR chest 1V Stat 09/16/24 11:00 Complete Blood Count AUTO DIFF Stat Comprehensive Metabolic Panel Stat Lipase Stat NT-proBNP (BNP-Adult 18+) Stat PTT Partial Thromboplastin [place] Stat Procalcitonin Stat Prothrombin Time INR Stat TSH w/ Reflex to FT4 Stat Troponin & CK Cardiac Panel Stat 09/16/24 11:27 Consult to BOTTLE FEEDER - Supervisor Paper Coating Stat 09/16/24 14:37 TSH [Thyroid Stimulating Hormone] Stat 09/16/24 14:38 EKG-12 Lead Stat 09/16/24 16:05 Urinalysis and Microscopic Stat Urine Culture Stat Urine Drug Screen, Rapid Stat 09/16/24 18:05 Acetaminophen Stat BMP [Basic Metabolic Panel] Stat Ethanol (ETOH) Stat Salicylate Stat Labetalol HCl (Labetalol 20 Mg/4 Ml Syringe) 20 mg IV Q10M PRN PRN Reason: Blood Pressure - High Last Admin: 09/16/24 13:42 Dose: 20 mg Documented By: JR Discontinued Medications Sodium Chloride (Normal Saline 0.9%) 1,000 mls @ 1,000 mls/hr IV BOLUS ONE Stop: 09/16/24 13:29 Last Infusion: 09/16/24 15:23 Dose: Infused Documented By: Admin: 09/16/24 12:51 Dose: 1,000 mls/hr Documented By: SIMEON Sodium Chloride (Normal Saline 0.9%) 1,000 mls @ 1,000 mls/hr IV BOLUS ONE Stop: 09/16/24 15:40 Last Admin: 09/16/24 16:36 Dose: 1,000 mls/hr Documented By: Lisinopril (Lisinopril 20 Mg Tablet) 40 mg PO NOW ONE Stop: 09/16/24 10:41 Last Admin: 09/16/24 11:06 Dose: 40 mg Documented By: Lorazepam (Lorazepam 0.5 Mg Tablet) 1 mg PO NOW ONE Stop: 09/16/24 12:32 Last Admin: 09/16/24 12:51 Dose: 1 mg Documented By: SIMEON Ondansetron HCl (Ondansetron 4 Mg/2 Ml Inj) 4 mg IV NOW ONE Stop: 09/16/24 13:36 Last Admin: 09/16/24 13:42 Dose: 4 mg Documented By: Ondansetron HCl (Ondansetron 4 Mg/2 Ml Inj) 4 mg IV NOW ONE Stop: 09/16/24 13:41 Last Admin: 09/16/24 13:42 Dose: Not Given Documented By: Oxycodone HCl (Oxycodone Ir 5 Mg Tablet) 5 mg PO NOW ONE Stop: 09/16/24 16:32 Last Admin: 09/16/24 16:36 Dose: 5 mg Documented By: Vital Signs Vital signs: Vital Signs - 8 hr 09/16/24 13:28 09/16/24 13:33 09/16/24 13:33 Pulse Rate 75 Respiratory Rate 8 L Blood Pressure 184/84 H 200/91 H Pulse Oximetry 99 Oxygen Delivery Method 09/16/24 13:42 09/16/24 14:00 09/16/24 14:01 Pulse Rate 70 Respiratory Rate Blood Pressure 200/91 H 164/69 H Pulse Oximetry 97 Oxygen Delivery Method 09/16/24 14:01 09/16/24 14:15 09/16/24 14:15 Pulse Rate 72 76 Respiratory Rate 13 15 Blood Pressure 180/76 H Pulse Oximetry 99 99 Oxygen Delivery Method 09/16/24 14:30 09/16/24 14:30 09/16/24 14:45 Pulse Rate 74 Respiratory Rate 13 Blood Pressure 158/67 H 147/65 H Pulse Oximetry Oxygen Delivery Method 09/16/24 14:45 09/16/24 15:00 09/16/24 15:00 Pulse Rate 68 75 Respiratory Rate 17 25 H Blood Pressure 155/69 H Pulse Oximetry 98 98 Oxygen Delivery Method 09/16/24 15:15 09/16/24 15:15 09/16/24 15:30 Pulse Rate 83 88 Respiratory Rate 11 L Blood Pressure 162/72 H Pulse Oximetry 97 Oxygen Delivery Method 09/16/24 15:39 09/16/24 15:39 09/16/24 16:00 Pulse Rate 72 73 Respiratory Rate 20 Blood Pressure 129/60 Pulse Oximetry 98 97 Oxygen Delivery Method 09/16/24 16:08 09/16/24 16:08 09/16/24 16:44 Pulse Rate 73 73 Respiratory Rate 11 L 9 L Blood Pressure 141/67 H Pulse Oximetry 99 Oxygen Delivery Method 09/16/24 16:45 09/16/24 16:45 Pulse Rate 72 Respiratory Rate 8 L Blood Pressure 161/71 H Pulse Oximetry 98 Oxygen Delivery Method Room Air MDM - Anxiety Differential Diagnosis Differential diagnosis: Likely panic disorder, acute anxiety and other (SI/HI) Lab Data 09/16/24 11:00 09/16/24 18:05 Labs: Lab Results 09/16/24 09/16/24 09/16/24 Range/Units 11:00 16:05 16:05 WBC 14.5 H (4.5-11.0) X10^3/uL RBC 4.16 (4.0-5.2) X10^6/uL Hgb 13.3 (12.0-16.0) g/dL Hct 38.4 (36-46) % MCV 92.2 (80-100) fL MCH 31.9 (26-34) PG MCHC 34.6 (30-36) % RDW 12.6 (11.6-14.8) % Plt Count 324 (150-400) X10^3/uL Neut % (Auto) 91.1 H (50-75) % Lymph % (Auto) 5.9 L (25-40) % [place] % (Auto) 2.8 L (3-14) % Eos % (Auto) 0.0 L (2-4) % Baso % (Auto) 0.2 (0-2) % Neut # (Auto) 26048 H (1743-3344) /uL Lymph # (Auto) 900 L (3491-0054) /uL [place] # (Auto) 400 (0-900) /uL Eos # (Auto) 0 (0-450) /uL Baso # (Auto) 0 (0-100) /uL PT 11.2 (9.4-12.5) SECONDS INR 1.0 (0.9-1.3) APTT 28 (25.1-36.5) SECONDS Sodium 126 L (137-145) mmol/L Potassium 3.9 (3.4-5.1) mmol/L Chloride 91 L (98-107) mmol/L Carbon Dioxide 25 (22-32) mmol/L BUN 5 L (7-17) mg/dL Creatinine 0.49 L (0.52-1.04) mg/dL Estimated GFR > 60 (>60) mL/min BUN/Creatinine Ratio 10.2 (6-22) Glucose 138 H (70-99) mg/dL Calcium 9.4 (8.4-10.2) mg/dL Total Bilirubin 0.6 (0.2-1.3) mg/dL AST 37 H (14-36) IU/L ALT 24 (<35) IU/L Alkaline Phosphatase 65 (38-126) U/L Total Creatine Kinase 66 (30-135) U/L Troponin I < 0.012 (0.01-0.034) ng/mL NT-Pro-B Natriuret Pep 132 H (<125) pg/mL Total Protein 8.2 (6.3-8.2) g/dL Albumin 4.8 (3.5-5.0) g/dL Globulin 3.4 (1.7-4.1) g/dL Albumin/Globulin Ratio 1.4 (1.0-2.8) Lipase 20 L (23-300) U/L Procalcitonin < 0.030 (<0.5) ng/mL Urine Color Yellow Urine Appearance Clear Urine pH 5.5 Normal (4.5-8.0) Ur Specific [place] <=1.005 (1.000-1.035) Urine Protein Negative (Negative) Urine Glucose (UA) Negative (Negative) g/dL Urine Ketones 1+ H (NEGATIVE) Urine Occult Blood Trace-intact (Negative) Urine Nitrate Negative (Negative) Urine Bilirubin Negative (NEGATIVE) Urine Urobilinogen 0.2 (0.2) E.U./dL Ur Leukocyte Esterase Negative (NEGATIVE) Urine RBC 0-1/hpf (0-5/HPF) Urine WBC 5-10/hpf H (0-5/HPF) Ur Squamous Epith Cells 1-5 /hpf (0-5/HPF) Urine Bacteria Few (2-10) H (None) Ur Culture Indicated? Specimen cultured Vol Urine Centrifuged 10ml (spun) Salicylates (<20) mg/dL U Opiates 300ng/mL cut Negative (Negative) Ur Oxycodone Screen Negative (Negative) Urine Methadone Screen Negative (Negative) Acetaminophen (10-30) ug/mL Ur Barbiturates Screen Positive H (Negative) U Tricyclic Antidepress Negative (Negative) Ur Phencyclidine Scrn Negative (Negative) Ur Amphetamines Screen Negative (Negative) U Methamphetamines Scrn Negative (Negative) Ur MDMA Scrn (Ecstasy) Negative (Negative) U Benzodiazepines Scrn Positive H (Negative) Urine Cocaine Screen Negative (Negative) U Marijuana (THC) Screen Negative (Negative) Urine Specific [place] Normal (Normal) Ethyl Alcohol (<10) mg/dL Ur Creatinine Normal (Normal) 07/15/25 Range/Units 18:05 WBC (4.5-11.0) X10^3/uL RBC (4.0-5.2) X10^6/uL Hgb (12.0-16.0) g/dL Hct (36-46) % MCV (80-100) fL MCH (26-34) PG MCHC (30-36) % RDW (11.6-14.8) % Plt Count (150-400) X10^3/uL Neut % (Auto) (50-75) % Lymph % (Auto) (25-40) % [place] % (Auto) (3-14) % Eos % (Auto) (2-4) % Baso % (Auto) (0-2) % Neut # (Auto) (8038-7521) /uL Lymph # (Auto) (6490-5523) /uL [place] # (Auto) (0-900) /uL Eos # (Auto) (0-450) /uL Baso # (Auto) (0-100) /uL PT (9.4-12.5) SECONDS INR (0.9-1.3) APTT (25.1-36.5) SECONDS Sodium 132 L (137-145) mmol/L Potassium 3.7 (3.4-5.1) mmol/L Chloride 102 (98-107) mmol/L Carbon Dioxide 24 (22-32) mmol/L BUN 3 L (7-17) mg/dL Creatinine 0.51 L (0.52-1.04) mg/dL Estimated GFR > 60 (>60) mL/min BUN/Creatinine Ratio 5.9 L (6-22) Glucose 121 H (70-99) mg/dL Calcium 8.4 (8.4-10.2) mg/dL Total Bilirubin (0.2-1.3) mg/dL AST (14-36) IU/L ALT (<35) IU/L Alkaline Phosphatase (38-126) U/L Total Creatine Kinase (30-135) U/L Troponin I (0.01-0.034) ng/mL NT-Pro-B Natriuret Pep (<125) pg/mL Total Protein (6.3-8.2) g/dL Albumin (3.5-5.0) g/dL Globulin (1.7-4.1) g/dL Albumin/Globulin Ratio (1.0-2.8) Lipase (23-300) U/L Procalcitonin (<0.5) ng/mL Urine Color Urine Appearance Urine pH (4.5-8.0) Ur Specific [place] (1.000-1.035) Urine Protein (Negative) Urine Glucose (UA) (Negative) g/dL Urine Ketones (NEGATIVE) Urine Occult Blood (Negative) Urine Nitrate (Negative) Urine Bilirubin (NEGATIVE) Urine Urobilinogen (0.2) E.U./dL Ur Leukocyte Esterase (NEGATIVE) Urine RBC (0-5/HPF) Urine WBC (0-5/HPF) Ur Squamous Epith Cells (0-5/HPF) Urine Bacteria (None) Ur Culture Indicated? Vol Urine Centrifuged Salicylates < 1.0 (<20) mg/dL U Opiates 300ng/mL cut (Negative) Ur Oxycodone Screen (Negative) Urine Methadone Screen (Negative) Acetaminophen < 10 (10-30) ug/mL Ur Barbiturates Screen (Negative) U Tricyclic Antidepress (Negative) Ur Phencyclidine Scrn (Negative) Ur Amphetamines Screen (Negative) U Methamphetamines Scrn (Negative) Ur MDMA Scrn (Ecstasy) (Negative) U Benzodiazepines Scrn (Negative) Urine Cocaine Screen (Negative) U Marijuana (THC) Screen (Negative) Urine Specific [place] (Normal) Ethyl Alcohol < 10 (<10) mg/dL Ur Creatinine (Normal) Urine Dip Bedside Urine Glucose Negative Bedside Urine Bilirubin - Negative Bedside Urine Ketone ++ 40 Urine Specific [place] 1.010 Bedside Urine Occult Blood +/- Bedside Urine pH 6.0 Bedside Urine Protein - Negative Bedside Urine Urobilinogen - Negative Bedside Urine Nitrite - Negative Bedside Urine Leukocytes - Negative Esterase ECG Data Interpretation: Normal sinus rhythm. 78 beats per minute. Discharge Plan Departure Patient Disposition: Xfer Psychiatric Hosp Clinical Impression: Depression Qualifiers: Depression Type: major depressive disorder Major depression recurrence: recurrent Active/Remission status: currently active Major depression episode severity: severe Psychotic features: without psychotic features Qualified Code(s): F33.2 - Major depressive disorder, recurrent severe without psychotic features Prescriptions: No Action phenazopyridine [Pyridium] 100 mg tablet 100 mg PO TID PRN (Reason: pain) Qty: 6 0RF Nature-Throid 97.5 mg Tablet 97.5 mg PO DAILY Qty: 0 lisinopril 5 mg tablet 5 mg PO DAILY Qty: 30 0RF alprazolam [Xanax] 0.5 mg tablet 0.5 mg PO TID PRN (Reason: anxiety) Qty: 21 0RF potassium chloride 10 mEq tablet extended release 10 meq PO BID Qty: 10 0RF sertraline 100 mg Tablet 50 mg PO DAILY tizanidine 4 mg Capsule 4 mg PO BEDTIME PRN (Reason: Muscle Spasm) buprenorphine [Butrans] 5 mcg/hour Patch Weekly 1 patch TRANSDERMAL Q7D acetaminophen 325 mg Tablet 650 mg PO Q6HR PRN (Reason: Pain, Mild (1-3)) Qty: 60 0RF hydromorphone 2 mg Tablet 2 mg PO Q3H PRN (Reason: Pain, Severe (7-10)) Qty: 60 0RF aspirin 81 mg Tablet,Delayed Release (Dr/Ec) 81 mg PO DAILY Qty: 30 0RF ondansetron 4 mg tablet,disintegrating 4 mg PO Q8H PRN (Reason: nausea and vomiting) Qty: 20 0RF Referrals: Vivian Powell PA-C [Primary Care Provider, Medical] ED Sign-out Sign Out Provider Sign Out Attestation: CHANTELL: The patient was medically cleared as I was caring for her. Now she is pending psych placement which the executive secretary social welfare is working on actively. I handed off her care to my colleague at 7:00 p.m..
[2024-09-16 18:55] LABS: Acetaminophen < 10 ug/mL (10-30); Ethanol (ETOH) < 10 mg/dL (<10); Salicylate < 1.0 mg/dL (<20)
[2024-09-16 18:56] LABS: Blood Urea Nitrogen 3 mg/dL (7-17); Calcium 8.4 mg/dL (8.4-10.2); Carbon Dioxide 24 mmol/L (22-32); Chloride 102 mmol/L (98-107); Estimated Glomerular Filt Rate > 60 mL/min (>60); Glucose 121 mg/dL (70-99); HEMOLYSIS < 15 (0-50); Potassium 3.7 mmol/L (3.4-5.1); Sodium 132 mmol/L (137-145)
[2024-09-16 19:27] LABS: TSH w/ Reflex to FT4 0.60 uIU/mL (0.47-4.68)
--- NOTE | 2024-09-16 21:02 | PC.NURSE ---
Pt requesting something for sleep. Dr Richey notified. Verbal order received for Ambien 5 mg.
--- NOTE | 2024-09-16 21:09 | PC.NURSE ---
Spoke to Jimmy from [facility] at around 2030 who stated they do not have beds tonight due to patients in their ER needing them. Was told to try tomorrow after 8am. Spoke to Ryne was told that the charge nurse has not had time to go over the pts notes but will look over them shortly
[2024-09-16] MEDS: ZOLPIDEM 5 MG TABLET PO (21:31)
[2024-09-16] MEDS: hydrALAZINE 20 MG/ML VIAL 10 MG IV (22:15)
[2024-09-16 22:41] LABS: COVID19 -Nasal RAPID Negative (Negative)
[2024-09-17 00:17] VITALS: BP 142/74; PULSE 96; O2SAT 98
--- NOTE | 2024-09-17 08:12 | PC.NURSE ---
patient spouse called to see where she went, Tobin is on patient contact list.
== END 2024-09-17 00:49 ==
PROVIDERS: Family Medicine; Emergency Provider Emergency Medicine; Family Provider Student in an Organized Health Care Education/Training Program; PCP Physician Assistant
DX: F33.2 Major depressive disorder, recurrent severe without psychotic features (principal)
CPT/HCPCS: 36415; 71045; 80048; 80053; 80305; 80320; 80329; 81001; 81003; 82550; 83690; 83880; 84145; 84443; 84484; 85025; 85610; 85730; 87077; 87086; 87186; 87635; 93005; 96361; 96374; 96375; 99284; G0480; J0360; J2405